=== PATIENT | male | born 1970 | race Caucasian/White ===

== ENCOUNTER 2019-09-25 17:10 | Inpatient (IN) | payer MEDICARE, OTHER ==
[2019-09-25] MEDS ORDERED: LORazepam 2 MG/ML INJ IV STA (17:26)
--- NOTE | 2019-09-25 18:02 | ED ---
General Adult HPI - General Source: EMS Mode of arrival: EMS <Lupis Rizvi - Last Filed: 09/25/19 21:11> <Tri Pinedo - Last Filed: 09/27/19 23:54> - General Stated complaint: Fever, poss pneumonia Time Seen by Provider: 09/25/19 17:21 - History of Present Illness Initial comments: Patient is a 49-year-old male, with history of significant mental disability and autism, presenting to the emergency Department via EMS as a transfer from [facility]. Patient is a resident of an adult foster shelter. He presented to the ER with a fever as high as 102. Patient was evaluated at their facility and was found to have bilateral pneumonia and they had concerns for COVID. Patient is nonverbal at baseline. History is being taken from legal guardian and medical records. There has been no history of a cough. He has been less active and a decreased appetite for the past few days. No further complaints at this time. Upon arrival to our facility, patient is afebrile, rest of vitals normal as well. (Lupis Rizvi) - Related Data Home Medications Medication Instructions Recorded Confirmed Benztropine Mesylate 1 mg PO BID@06,199909/25/19 09/26/19 Cetirizine HCl 10 mg PO HS@219909/25/19 09/26/19 Demeclocycline HCl 300 mg PO PC-TID 09/25/19 09/26/19 Divalproex [Depakote] 1,500 mg PO DAILY@59909/25/19 09/26/19 Docusate [Colace] 100 mg PO BID@599,199909/25/19 09/26/19 Gabapentin [Neurontin] 300 mg PO QID 09/25/19 09/26/19 LORazepam [Ativan] 0.5 mg PO BID@1600,219909/25/19 09/26/19 LORazepam [Ativan] 1 mg PO DAILY PRN 09/25/19 09/26/19 Levothyroxine Sodium [Synthroid] 25 mcg PO DAILY@0600 09/25/19 09/26/19 OXcarbazepine [Oxtellar Xr] 600 mg PO BID@0600,1800 09/25/19 09/26/19 QUEtiapine [SEROquel] 200 mg PO HS@2000 09/25/19 09/26/19 Sodium Chloride Tab 1 gm PO TID@0800,1200,1800 09/25/19 09/26/19 Vitamin B Complex/Folic Acid 0.4 mg PO DAILY@0600 09/25/19 09/26/19 [Vitamin B Complex Tablet] Vitamin E 100 unit PO TID@0600,1800,2200 09/25/19 09/26/19 Diastat 10mg 10 mg RECTAL ONCE PRN 09/26/19 09/26/19 Divalproex [Depakote] 1,000 mg PO DAILY@1800 09/26/19 09/26/19 Magnesium Hydroxide [Milk of 2,400 mg PO ONCE PRN 09/26/19 09/26/19 Magnesia] Selenium Sul 1% Shampoo 1 applic TOPICAL DIRECTED PRN 09/26/19 09/26/19 Allergies Allergy/AdvReac Type Severity Reaction Status Date / Time escitalopram [From Lexapro] Allergy Unknown Verified 09/26/19 08:42 fluoxetine [From Prozac] Allergy Unknown Verified 09/26/19 08:42 haloperidol [From Haldol] Allergy Unknown Verified 09/26/19 08:42 lacosamide [From Vimpat] Allergy Unknown Verified 09/26/19 08:42 methylphenidate Allergy Unknown Verified 09/26/19 08:42 [From Ritalin] Penicillins Allergy Unknown Verified 09/26/19 08:42 phenobarbital Allergy Unknown Verified 09/26/19 08:42 phenytoin [From Dilantin] Allergy Unknown Verified 09/26/19 08:42 sulfamethoxazole Allergy Unknown Verified 09/26/19 08:42 [From Bactrim] trimethoprim [From Bactrim] Allergy Unknown Verified 09/26/19 08:42 Review of Systems ROS Other: All systems not noted in ROS Statement are negative. <Lupis Rizvi - Last Filed: 09/25/19 21:11> ROS Other: All systems not noted in ROS Statement are negative. <Tri Pinedo - Last Filed: 09/27/19 23:54> ROS Statement: Those systems with pertinent positive or pertinent negative responses have been documented in the HPI. Past Medical History Additional Past Medical History / Comment(s): autism, pica, epilepsy Past Surgical History: Unable to Obtain Past Psychological History: Unable to Obtain Past Alcohol Use History: Unable to Obtain Past Drug Use History: Unable to Obtain <BelkysLupis Amanda - Last Filed: 09/25/19 21:11> General Exam <Lupis Rizvi Amanda - Last Filed: 09/25/19 21:11> - General Exam Comments Initial Comments: GENERAL: Well-appearing, and in no acute distress. HEAD: Atraumatic, normocephalic. EYES: Pupils equal round and reactive to light, extraocular movements intact, sclera anicteric, conjunctiva are normal. ENT: TMs normal, nares patent, oropharynx clear without exudates. Moist mucous membranes. NECK: Normal range of motion, supple without lymphadenopathy or JVD. LUNGS: Diffuse scattered wheezes. HEART: Regular rate and rhythm without murmurs, rubs or gallops. ABDOMEN: Soft, nontender, normoactive bowel sounds. No guarding, no rebound. No masses appreciated. : Deferred EXTREMITIES: Normal range of motion, no pitting or edema. No clubbing or cyanosis. NEUROLOGICAL: Alert, mentally impaired, nonverbal. Patient is moving all 4 extremities without difficulty. PSYCH: Caregiver states he is less active than normal. SKIN: Warm, Dry, normal turgor, no rashes or lesions noted. (Lupis Rizvi) Course Vital Signs 09/25/19 09/25/19 17:22 19:29 Temperature 97 F L 98.2 F Pulse Rate 69 66 Respiratory 22 22 Rate Blood Pressure 123/66 126/76 O2 Sat by Pulse 96 96 Oximetry Medical Decision Making <Yeimy Rizvininorma Patel - Last Filed: 09/25/19 21:11> - Lab Data Result diagrams: 09/27/19 07:32 09/26/19 12:14 <Tri Pinedo - Last Filed: 09/27/19 23:54> - Medical Decision Making Patient is a 49-year-old male with history of mental impairment, autism, presenting as a transfer from [facility] with concerns of COVID. He presented febrile. Workup was done at [facility] and included significant low lymphocyte count at 0.71, pro-calcitonin is 3.45. X-rays reveal bilateral infiltrates on chest x-ray. He was started on IV antibiotics and fluids as well as Ativan to keep patient calm. Patient lives in a custodial setting. He arrived in our ER in stable condition. He is afebrile at this time. Caregiver is with patient. Patient seems restless and is continuing trying to get out of his bed. Patient will be continued on fluids, patient was given Ativan for restlessness. Patient was given IV dose of Levaquin prior to arrival. Patient will be tested for Covid and admitted for bilateral pneumonia. Accepting physician is Dr. Lawrence. Case discussed with Dr. Pinedo. (Lupis Rizvi) I was available for consultation in the emergency department. The history and physical exam were done by the midlevel provider. I was consulted for this patients care. I reviewed the case with the midlevel provider and based on their presentation of the patient, I agree with the assessment, medical decision making and plan of care as documented. I spoke with Dr. Lawrence who accepted admission. Chart was dictated using [employer] dictation software. Attempts were made to correct any dictation errors however some typographical errors may persist. Patient was seen during a national state of emergency due to the Covid-19 pandemic. (Tri Pinedo) Disposition Is patient prescribed a controlled substance at d/c from ED?: No Decision Date: 09/25/19 Decision Time: 18:36 <Lupis Rizvi - Last Filed: 09/25/19 21:11> <Tri Pinedo - Last Filed: 09/27/19 23:54> Clinical Impression: Suspected COVID-19 virus infection, Bilateral pneumonia, Nonverbal Disposition: ADMITTED IP TO THIS HOSP Condition: Good
[2019-09-25] MEDS ORDERED: PNEUMONIA PROTOCOL UTILIZED 1 EACH MISC PO PRN (18:29)
[2019-09-25] MEDS: SODIUM CHLORIDE 0.9% 1,000 ML IV SCH (19:18)
[2019-09-25] MEDS ORDERED: LORazepam 1 MG TAB PO PRN (20:28)
[2019-09-25] MEDS ORDERED: DIVALPROEX 250 MG TABLET.DR PO SCH (21:00)
[2019-09-25] MEDS: CEFEPIME 1 GM in SODIUM CHLORIDE 0.9% 50 ML IVPB SCH (23:11)
[2019-09-25] MEDS: LORazepam 0.5 MG TAB PO SCH (23:12)
[2019-09-25] MEDS: DIVALPROEX 500 MG TABLET.DR PO SCH (23:12)
[2019-09-25] MEDS: DOCUSATE 100 MG CAP PO SCH (23:12)
[2019-09-25] MEDS: GABAPENTIN 300 MG CAP PO SCH (23:12)
[2019-09-25] MEDS: BENZTROPINE MESYLATE 1 MG TAB PO SCH (23:13)
[2019-09-25] MEDS: DEMECLOCYCLINE 150 MG TAB PO SCH (23:13)
[2019-09-25] MEDS: QUEtiapine 200 MG TAB PO SCH (23:13)
[2019-09-25] MEDS: SODIUM CHLORIDE TAB 1 GM TAB PO SCH (23:13)
[2019-09-25] MEDS: OXCARBAZEPINE 600 MG PO SCH (23:14)
[2019-09-26] MEDS: GABAPENTIN 300 MG CAP PO SCH ×4 (04:20→22:47)
[2019-09-26] MEDS: LEVOTHYROXINE 25 MCG TAB PO SCH (05:56)
[2019-09-26 07:18] LABS: Basophils % (A) 0 %; Eosinophils # (A) 0.1 k/uL (0-0.7); Eosinophils % (A) 1 %; HGB 11.3 gm/dL (13.0-17.5); Lymphocytes # (A) 1.4 k/uL (1.0-4.8); Lymphocytes % (A) 25 %; MCH 29.3 pg (25.0-35.0); MCHC 32.1 g/dL (31.0-37.0); MCV 91.3 fL (80.0-100.0); Mean Platelet Volume 7.8; Monocytes # (A) 0.5 k/uL (0-1.0); Monocytes % (A) 8 %; Neutrophils # (A) 3.6 k/uL (1.3-7.7); Neutrophils % (A) 63 %; Platelet Count 150 k/uL (150-450); RBC 3.84 m/uL (4.30-5.90); RDW 13.4 % (11.5-15.5); WBC 5.7 k/uL (3.8-10.6)
[2019-09-26] MEDS: DIVALPROEX 500 MG TABLET.DR PO SCH ×2 (07:39→16:47)
[2019-09-26] MEDS: LORazepam 0.5 MG TAB PO SCH ×2 (07:39→22:47)
[2019-09-26] MEDS: DOCUSATE 100 MG CAP PO SCH ×2 (07:39→22:46)
[2019-09-26] MEDS: DEMECLOCYCLINE 150 MG TAB PO SCH ×3 (07:40→22:47)
[2019-09-26] MEDS: BENZTROPINE MESYLATE 1 MG TAB PO SCH ×2 (07:40→22:47)
[2019-09-26] MEDS: SODIUM CHLORIDE TAB 1 GM TAB PO SCH ×3 (07:40→22:46)
[2019-09-26] MEDS: CEFEPIME 1 GM in SODIUM CHLORIDE 0.9% 50 ML IVPB SCH ×2 (07:56→23:13)
[2019-09-26] MEDS: SODIUM CHLORIDE 0.9% 1,000 ML IV SCH ×2 (07:57→22:47)
--- NOTE | 2019-09-26 07:58 | XR ---
EXAMINATION TYPE: XR chest 1V portable DATE OF EXAM: 09/26/2019 CLINICAL HISTORY: Difficulty breathing and pneumonia. TECHNIQUE: Single AP portable frontal view of the chest is obtained. COMPARISON: None FINDINGS: Low lung volumes with bilateral central increased opacities. No pleural effusion or pneumo thorax seen bilaterally. Cardiac silhouette size upper limits of normal. Underlying levoconvex scolio tic curvature centered mid thoracic spine. IMPRESSION: Low lung volumes with bilateral central areas of acute infiltrate and/or edema felt prese nt.
[2019-09-26] MEDS ORDERED: LEVOFLOXACIN 750MG-D5W PMX 750 MG in DEXTROSE/WATER 1 150ML.BAG IVPB SCH (09:00)
[2019-09-26] MEDS ORDERED: VITAMIN B COMPLEX PO SCH (09:00)
[2019-09-26] MEDS ORDERED: FOLIC ACID PO SCH (09:00)
[2019-09-26 12:45] LABS: Albumin 3.6 g/dL (3.5-5.0); C Reactive Protein 65.5 mg/L (<10.0); Potassium 4.3 mmol/L (3.5-5.1); Total Bilirubin 0.8 mg/dL (0.2-1.3); Total Protein 6.7 g/dL (6.3-8.2)
[2019-09-26] MEDS: OXCARBAZEPINE 600 MG PO SCH ×2 (12:55→22:59)
--- NOTE | 2019-09-26 17:05 | P.HPIM ---
History of Present Illness H&P Date: 09/26/19 Chief Complaint: Fever History of presenting complaint: This is a 49-year-old patient who is a resident at [facility] home. Patient presented to [facility] he was found to fever of 102. Claudette bilateral pneumonia. Patient to baseline is nonverbal. Patient has a legal guardian. According to the notes patient was less active and decreased appetite for last few days. Pat ient was febrile another facility. They did not have arrangements about a hospital has patient was transferred down here.: COVID-19 testing was sent out. Patient being treated for bacterial pneumonia. Patient has a sitter the bedside. Patient is moving his limbs but does not participate in any discussion. Patient apparently her baseline is independently ambulatory. Admitting review of systems cannot be done as patient is nonverbal Past medical history to include: Autism, pica, epilepsy Social history: Does not smoke or drink alcohol. Resident of [facility] Patient's legal guardian is Azar-patient's brother Family history: Patient cannot state Physical examination: VITAL SIGNS: 97, 69, 22, 123/66, 96% on room air GENERAL: BMI 20.3, laying in bed, had to shake portal venous phase, moving all 4 limbs.. EYES: Pupils equal. Conjunctiva normal. HEENT: External appearance of nose and ears normal, oral cavity grossly normal. NECK: JVD not raised; masses not palpable. HEART: First and second heart sounds are normal; no edema. LUNGS: Respiratory rate increased, decreased breath sounds. ABDOMEN: Soft, nontender, liver spleen not palpable, no masses palpable. PSYCH: Unable to assess, patient nonverball. NEUROLOGICAL: [Cranial nerves grossly intact; no facial asymmetry, moving all 4 limbs LYMPHATICS: No lymph nodes palpable in the axilla and neck INVESTIGATIONS, reviewed in the clinical context: White count 5.7 hemoglobin 11.3 platelets 150 d-dimer 1.4 potassium 4.3 crit 1.11 LDH 479 CRP 65.5 pro calcitonin 2.19 Chest x-ray film personally reviewed by me-bilateral infiltrates Assessment: -This is a patient with nonverbal at a [facility] presents with fever of 102 with bilateral infiltrates. Inflammation markers above. Suspicion for COVID-19 high. Results of which are pending. Dr. Restrepo from [place] has been consulted for the same. -Advanced autism -Patient to baseline is nonverbal -Normocytic anemia cause unknown -Hypothyroid Plan: Patient currently being treated for bacterial pneumonia with IV cefepime. Home medications be resumed. Prognosis DVT prophylaxis. IV fluids. Await input from Dr. Villanueva. From ID. Past Medical History Additional Past Medical History / Comment(s): autism, pica, epilepsy History of Any Multi-Drug Resistant Organisms: None Reported Past Surgical History: Unable to Obtain Past Anesthesia/Blood Transfusion Reactions: No Reported Reaction Past Psychological History: Unable to Obtain Past Alcohol Use History: Unable to Obtain Past Drug Use History: Unable to Obtain Medications and Allergies Home Medications Medication Instructions Recorded Confirmed Type Benztropine Mesylate 1 mg PO BID@599,199909/25/19 09/26/19 History Cetirizine HCl 10 mg PO HS@219909/25/19 09/26/19 History Demeclocycline HCl 300 mg PO PC-TID 09/25/19 09/26/19 History Divalproex [Depakote] 1,500 mg PO DAILY@59909/25/19 09/26/19 History Docusate [Colace] 100 mg PO BID@599,199909/25/19 09/26/19 History Gabapentin [Neurontin] 300 mg PO QID 09/25/19 09/26/19 History LORazepam [Ativan] 0.5 mg PO BID@1600,219909/25/19 09/26/19 History LORazepam [Ativan] 1 mg PO DAILY PRN 09/25/19 09/26/19 History Levothyroxine Sodium [Synthroid] 25 mcg PO DAILY@59909/25/19 09/26/19 History OXcarbazepine [Oxtellar Xr] 600 mg PO BID@0600,179909/25/19 09/26/19 History QUEtiapine [SEROquel] 200 mg PO HS@199909/25/19 09/26/19 History Sodium Chloride Tab 1 gm PO TID@0800,1200,1800 09/25/19 09/26/19 History Vitamin B Complex/Folic Acid 0.4 mg PO DAILY@00 09/25/19 09/26/19 History [Vitamin B Complex Tablet] Vitamin E 100 unit PO TID@0600,1800,219909/25/1920 History Diastat 10mg 10 mg RECTAL ONCE PRN 09/26/19 09/26/19 History Divalproex [Depakote] 1,000 mg PO DAILY@1800 09/26/19 09/26/19 History Magnesium Hydroxide [Milk of 2,400 mg PO ONCE PRN 09/26/19 09/26/19 History Magnesia] Selenium Sul 1% Shampoo 1 applic TOPICAL DIRECTED PRN 09/26/19 09/26/19 History Allergies Allergy/AdvReac Type Severity Reaction Status Date / Time escitalopram [From Lexapro] Allergy Unknown Verified 09/26/19 08:42 fluoxetine [From Prozac] Allergy Unknown Verified 09/26/19 08:42 haloperidol [From Haldol] Allergy Unknown Verified 09/26/19 08:42 lacosamide [From Vimpat] Allergy Unknown Verified 09/26/19 08:42 methylphenidate Allergy Unknown Verified 09/26/19 08:42 [From Ritalin] Penicillins Allergy Unknown Verified 09/26/19 08:42 phenobarbital Allergy Unknown Verified 09/26/19 08:42 phenytoin [From Dilantin] Allergy Unknown Verified 09/26/19 08:42 sulfamethoxazole Allergy Unknown Verified 09/26/19 08:42 [From Bactrim] trimethoprim [From Bactrim] Allergy Unknown Verified 09/26/19 08:42 Physical Exam Vitals: Vital Signs Temp Pulse Pulse Resp BP BP Pulse Ox 09/26/19 08:32 96 09/26/19 08:00 64 16 09/26/19 07:59 98.3 F 64 16 118/82 09/25/19 19:29 98.2 F 66 22 126/76 96 09/25/19 17:22 97 F L 69 22 123/66 96 Intake and Output 09/25/19 09/26/19 09/26/19 22:59 06:59 14:59 Other: Voiding Method Diaper Diaper Incontinent Incontinent # Voids 3 3 Weight 68.039 kg Results CBC & Chem 7: 09/26/19 06:31 09/26/19 12:14 Labs: Abnormal Lab Results - Last 24 Hours (Table) 09/26/19 Range/Units 06:31 RBC 3.84 L (4.30-5.90) m/uL Hgb 11.3 L (13.0-17.5) gm/dL Hct 35.0 L (39.0-53.0) % Thrombosis Risk Factor Assmnt - Choose All That Apply Any of the Below Risk Factors Present?: Yes Each Factor Represents 1 point: Age 41-60 years Other Risk Factors: No Other congenital or acquired thrombophilia - If yes, enter type in comment: No Thrombosis Risk Factor Assessment Total Risk Factor Score: 1 Thrombosis Risk Factor Assessment Level: Low Risk
[2019-09-26] MEDS: QUEtiapine 200 MG TAB PO SCH (22:46)
--- NOTE | 2019-09-26 23:44 | P.CONS ---
History of Present Illness - Reason for Consult Consult date: 09/26/19 Pneumonia Requesting physician: Randy Lawrence - Chief Complaint Fever x 1 day - History of Present Illness Patient is a 57-year-old male with a past medical history significant for her mental disability and autism a [facility] patient was sent to [facility] for evaluation of fever of 104 in height patient was evaluated by the ER physician that facility did have a chest x-ray with evidence of bilateral pneumonia concern for the COVID-19 the patient been transferred to [facility] for further management currently there is no clear history of any cough though the patient did have a low appetite has been less active than usual patient has been evaluated ER physician and subsequently has been admitted here patient has no fever since has been admitted to hospital patient did have a normal white count normal creatinine elevated CRP and procalcitonin of 2.19 chest x-ray shows a low lung volumes with bilateral central areas of acute in filtrate or edema patient has been started on cefepime infectious has been consulted for further management of chemotherapy did received 1 dose of Levaquin patient is nonverbal most information has been obtained from review the chart and talking nursing staff Review of Systems positive point has been mentioned in HPI complete review could not be obtained because of underlying mental status. Past Medical History Additional Past Medical History / Comment(s): autism, pica, epilepsy History of Any Multi-Drug Resistant Organisms: None Reported Past Surgical History: Unable to Obtain Past Anesthesia/Blood Transfusion Reactions: No Reported Reaction Past Psychological History: Unable to Obtain Past Alcohol Use History: Unable to Obtain Past Drug Use History: Unable to Obtain Medications and Allergies Home Medications Medication Instructions Recorded Confirmed Type Benztropine Mesylate 1 mg PO BID@599,199909/25/19 09/26/19 History Cetirizine HCl 10 mg PO HS@219909/25/19 09/26/19 History Demeclocycline HCl 300 mg PO PC-TID 09/25/19 09/26/19 History Divalproex [Depakote] 1,500 mg PO DAILY@59909/25/19 09/26/19 History Docusate [Colace] 100 mg PO BID@599,199909/25/19 09/26/19 History Gabapentin [Neurontin] 300 mg PO QID 09/25/19 09/26/19 History LORazepam [Ativan] 0.5 mg PO BID@1600,2200 09/25/19 09/26/19 History LORazepam [Ativan] 1 mg PO DAILY PRN 09/25/19 09/26/19 History Levothyroxine Sodium [Synthroid] 25 mcg PO DAILY@0600 09/25/19 09/26/19 History OXcarbazepine [Oxtellar Xr] 600 mg PO BID@0600,1800 09/25/19 09/26/19 History QUEtiapine [SEROquel] 200 mg PO HS@199909/25/19 09/26/19 History Sodium Chloride Tab 1 gm PO TID@0800,1200,1800 09/25/19 09/26/19 History Vitamin B Complex/Folic Acid 0.4 mg PO DAILY@0600 09/25/19 09/26/19 History [Vitamin B Complex Tablet] Vitamin E 100 unit PO TID@0600,1800,0 09/25/19 09/26/19 History Diastat 10mg 10 mg RECTAL ONCE PRN 09/26/19 09/26/19 History Divalproex [Depakote] 1,000 mg PO DAILY@1800 09/26/19 09/26/19 History Magnesium Hydroxide [Milk of 2,400 mg PO ONCE PRN 09/26/19 09/26/19 History Magnesia] Selenium Sul 1% Shampoo 1 applic TOPICAL DIRECTED PRN 09/26/19 09/26/19 History Allergies Allergy/AdvReac Type Severity Reaction Status Date / Time escitalopram [From Lexapro] Allergy Unknown Verified 09/26/19 08:42 fluoxetine [From Prozac] Allergy Unknown Verified 09/26/19 08:42 haloperidol [From Haldol] Allergy Unknown Verified 09/26/19 08:42 lacosamide [From Vimpat] Allergy Unknown Verified 09/26/19 08:42 methylphenidate Allergy Unknown Verified 09/26/19 08:42 [From Ritalin] Penicillins Allergy Unknown Verified 09/26/19 08:42 phenobarbital Allergy Unknown Verified 09/26/19 08:42 phenytoin [From Dilantin] Allergy Unknown Verified 09/26/19 08:42 sulfamethoxazole Allergy Unknown Verified 09/26/19 08:42 [From Bactrim] trimethoprim [From Bactrim] Allergy Unknown Verified 09/26/19 08:42 Physical Exam Vitals: Vital Signs Temp Pulse Resp BP Pulse Ox 09/26/19 21:30 97.6 F 69 18 142/77 88 L 09/26/19 16:00 66 16 09/26/19 14:34 98.2 F 66 16 134/88 92 L 09/26/19 08:32 96 09/26/19 08:00 64 16 09/26/19 07:59 98.3 F 64 16 118/82 Intake and Output 09/26/19 09/26/19 09/27/19 14:59 22:59 06:59 Other: Voiding Method Diaper Diaper Incontinent Incontinent # Voids 2 6 GENERAL DESCRIPTION: Middle-aged male lying in bed, no distress. No tachypnea or accessory muscle of respiration use. HEENT: Shows Pallor , no scleral icterus. Oral mucous membrane is dry. NECK: Trachea central, no thyromegaly. LUNGS: Unlabored breathing. Decreased breath the base. No wheeze or crackle. HEART: S1, S2, regular rate and rhythm. ABDOMEN: Soft, no tenderness , guarding or rigidity EXTREMITIES: No edema of feet. SKIN: No rash, no masses palpable. NEUROLOGICAL: The patient is awake, orientation could not be determined because of underlying mental condition Results CBC & Chem 7: 09/26/19 06:31 09/26/19 12:14 Labs: Abnormal Lab Results - Last 24 Hours (Table) 09/26/19 09/26/19 09/26/19 Range/Units 06:31 06:31 12:14 RBC 3.84 L (4.30-5.90) m/uL Hgb 11.3 L (13.0-17.5) gm/dL Hct 35.0 L (39.0-53.0) % D-Dimer 1.40 H (<0.60) mg/L FEU ALT (4-49) U/L C-Reactive Protein (<10.0) mg/L Procalcitonin 2.19 H (0.02-0.09) ng/mL 09/26/19 Range/Units 12:14 RBC (4.30-5.90) m/uL Hgb (13.0-17.5) gm/dL Hct (39.0-53.0) % D-Dimer (<0.60) mg/L FEU ALT 99 H (4-49) U/L C-Reactive Protein 65.5 H (<10.0) mg/L Procalcitonin (0.02-0.09) ng/mL Assessment and Plan Assessment: 1- Patient presented hospital with fever and this patient noticed to be slightly less active however no significant cough has been noticed with a chest x-ray and bilateral infiltrate concern for possible atypical pneumonia though clinically features are not very suggestive of COVID-19 in this patient who did have elev ated procalcitonin which is usually seen in bacterial pneumonia than the viral pneumonia however other sources of fever such as UTI need to be ruled out as well 2-penicillin allergy that would limit the number of antibiotics safe to use 3-patient was cervical contraindicating the use of concomitant Levaquin or Zithromax (1) Fever Current Visit: Yes Status: Acute Code(s): R50.9 - FEVER, UNSPECIFIED SNOMED Code(s): 693278369 (2) Bilateral pneumonia Current Visit: Yes Status: Acute Code(s): J18.9 - PNEUMONIA, UNSPECIFIED ORGANISM SNOMED Code(s): 070236464 Plan: 1-we will try to obtain a sputum for Gram stain and culture and check a urine cultures 2-cefepime 1 g every 12hr to continue we will add doxycycline 100 mg twice daily We will follow on clinical condition and cultures to further adjust medication if needed Thank you for this consultation we will follow the patient along with you Time with Patient: Greater than 30
[2019-09-27] MEDS: DIVALPROEX 500 MG TABLET.DR PO SCH ×2 (06:06→17:10)
[2019-09-27] MEDS: GABAPENTIN 300 MG CAP PO SCH ×4 (06:06→21:50)
[2019-09-27] MEDS: LEVOTHYROXINE 25 MCG TAB PO SCH (06:11)
[2019-09-27 08:08] LABS: Basophils % (A) 1 %; Eosinophils # (A) 0.1 k/uL (0-0.7); Eosinophils % (A) 2 %; HCT 39.2 % (39.0-53.0); HGB 13.1 gm/dL (13.0-17.5); Lymphocytes # (A) 1.5 k/uL (1.0-4.8); Lymphocytes % (A) 25 %; MCH 30.6 pg (25.0-35.0); MCHC 33.5 g/dL (31.0-37.0); MCV 91.2 fL (80.0-100.0); Mean Platelet Volume 8.1; Monocytes # (A) 0.6 k/uL (0-1.0); Monocytes % (A) 11 %; Neutrophils # (A) 3.5 k/uL (1.3-7.7); Neutrophils % (A) 59 %; Platelet Count 150 k/uL (150-450); RDW 13.6 % (11.5-15.5)
[2019-09-27 08:20] LABS: Appearance,Urine Clear (Clear); Bilirubin,Urine Negative (Negative); Blood,Urine Negative (Negative); Color,Urine Yellow; Glucose,Urine (UA) Negative (Negative); Ketones,Urine Trace (Negative); Leukocyte Esterase,Urine Negative (Negative); Nitrite,Urine Negative (Negative); Protein,Urine Negative (Negative); Specific Gravity,Urine 1.009 (1.001-1.035); Urobilinogen,Urine <2.0 mg/dL (<2.0)
[2019-09-27] MEDS: DEMECLOCYCLINE 150 MG TAB PO SCH ×3 (08:29→21:49)
[2019-09-27] MEDS: SODIUM CHLORIDE TAB 1 GM TAB PO SCH ×3 (08:29→22:03)
[2019-09-27] MEDS: LORazepam 0.5 MG TAB PO SCH ×2 (08:29→21:49)
[2019-09-27] MEDS: BENZTROPINE MESYLATE 1 MG TAB PO SCH ×2 (08:30→21:49)
[2019-09-27] MEDS: DOXYCYCLINE 100 MG CAP PO SCH ×2 (08:30→21:49)
[2019-09-27] MEDS: CEFEPIME 1 GM in SODIUM CHLORIDE 0.9% 50 ML IVPB SCH ×2 (08:31→21:49)
[2019-09-27] MEDS: DOCUSATE 100 MG CAP PO SCH ×2 (08:32→21:49)
[2019-09-27] MEDS: OXCARBAZEPINE 600 MG PO SCH ×2 (08:32→22:07)
[2019-09-27] MEDS: SODIUM CHLORIDE 0.9% 1,000 ML IV SCH (08:37)
--- NOTE | 2019-09-27 15:08 | PN ---
PROGRESS NOTE DATE OF SERVICE: 09/27/2019 REASON FOR FOLLOWUP: Pneumonia. INTERVAL HISTORY: The patient is currently afebrile. The patient is breathing comfortably on room air. He is hemodynamically stable wound, oral intake is poor but no chest pain or choking has been noticed by the nurse aide. No vomiting or any diarrhea reported. The patient was unable to provide any history. PHYSICAL EXAMINATION: Blood pressure 145/83 with a pulse of 62, temperature 98.2, she is 97% on room air. General description is a middle-aged male, lying in bed in no distress. RESPIRATORY SYSTEM: Unlabored breathing, clear to auscultation anteriorly. HEART: S1, S2. Regular rate and rhythm. ABDOMEN: Soft, no tenderness. LABS: Urine is negative. White count of 6.0. CRP is down to 54. DIAGNOSTIC IMPRESSION/PLAN: Patient admitted to hospital with pneumonia, possibly community-acquired. Overall improvement on the doxycycline. Continue to finish therapy with oral antibiotic on discharge. Monitor clinical course closely. MMODL / IJN: [id number] /
[2019-09-27] MEDS: QUEtiapine 200 MG TAB PO SCH (21:49)
--- NOTE | 2019-09-27 23:22 | P.PN ---
Progress Note - Text Progress Note Date: 09/27/19 Chief Complaint: Fever History of presenting complaint: This is a 49-year-old patient who is a resident at [facility] home. Patient presented to [facility] he was found to fever of 102. Claudette bilateral pneumonia. Patient to baseline is nonverbal. Patient has a legal guardian. According to the notes patient was less active and decreased appetite for last few days. Patient was febrile another facility. They did not have arrangements about a hospital has patient was transferred down here.: COVID-19 testing was sent out. Patient being treated for bacterial pneumonia. Patient has a sitter the bedside. Patient is moving his limbs but does not participate in any discussion. Patient apparently her baseline is independently ambulatory. Admitted with-pneumonia. COVID 19-not injected Today-sitter the bedside. Eat a little bit. Awake moving about. Admitting review of systems cannot be done as patient is nonverbal Active Medications Benztropine Mesylate (Cogentin) 1 mg PO BID [facility] Last Admin: 09/27/19 21:49 Dose: 1 mg Documented by: Demeclocycline HCl (Declomycin) 300 mg PO TID [facility] Last Admin: 09/27/19 21:49 Dose: 300 mg Documented by: Divalproex Sodium (Depakote) 1,000 mg PO DAILY@1800 [facility] Last Admin: 09/27/19 17:10 Dose: 1,000 mg Documented by: Divalproex Sodium (Depakote) 1,500 mg PO DAILY@0600 [facility] Last Admin: 09/27/19 06:06 Dose: 1,500 mg Documented by: Docusate Sodium (Colace) 100 mg PO Q12H [facility] Last Admin: 09/27/19 21:49 Dose: 100 mg Documented by: Doxycycline Monohydrate (Vibramycin) 100 mg PO BID [facility] Last Admin: 09/27/19 21:49 Dose: 100 mg Documented by: Gabapentin (Neurontin) 300 mg PO Q6H [facility] Last Admin: 09/27/19 21:50 Dose: 300 mg Documented by: Sodium Chloride (Saline 0.9%) 1,000 mls @ 75 mls/hr IV .[id number] [facility] Last Admin: 09/27/19 08:37 Dose: Not Given Documented by: Cefepime HCl 1 gm/ Sodium (Chloride) 50 mls @ 100 mls/hr IVPB Q12HR [facility] Last Admin: 09/27/19 21:49 Dose: 100 mls/hr Documented by: Levothyroxine Sodium (Synthroid) 25 mcg PO 0630 [facility] Last Admin: 09/27/19 06:11 Dose: 25 mcg Documented by: Lorazepam (Ativan) 0.5 mg PO BID [facility] Last Admin: 09/27/19 21:49 Dose: 0.5 mg Documented by: Lorazepam (Ativan) 1 mg PO DAILY PRN PRN Reason: Anxiety Miscellaneous Information (Pneumonia Protocol Utilized) 1 each PO ONCE PRN PRN Reason: Per Protocol Patient's Own ( Oxcarbazepine [ Oxtellar Xr] 600 Mg) 600 mg PO BID [facility] Last Admin: 09/27/19 22:07 Dose: Not Given Documented by: Quetiapine Fumarate (Seroquel) 200 mg PO HS [facility] Last Admin: 09/27/19 21:49 Dose: 200 mg Documented by: Sodium Chloride (Sodium Chloride Tab) 1 gm PO TID [facility] Last Admin: 09/27/19 22:03 Dose: 1 gm Documented by: Physical examination: VITAL SIGNS: 98.2, 60, 16, 145/83, 97% on room air GENERAL: BMI 20.3, laying in bed, had to shake portal venous phase, moving all 4 limbs.. EYES: Pupils equal. Conjunctiva normal. HEENT: External appearance of nose and ears normal, oral cavity grossly normal. NECK: JVD not raised; masses not palpable. HEART: First and second heart sounds are normal; no edema. LUNGS: Respiratory rate increased, decreased breath sounds. ABDOMEN: Soft, nontender, liver spleen not palpable, no masses palpable. PSYCH: Unable to assess, patient nonverball. NEUROLOGICAL: [Cranial nerves grossly intact; no facial asymmetry, moving all 4 limbs INVESTIGATIONS, reviewed in the clinical context: White count 6 hemoglobin 13.1 COVID-19 PCR-not detected Admission testing White count 5.7 hemoglobin 11.3 platelets 150 d-dimer 1.4 potassium 4.3 crit 1.11 LDH 479 CRP 65.5 pro calcitonin 2.19 Chest x-ray film personally reviewed by me-bilateral infiltrates Assessment: -Bilateral pneumonia, suspect gram-negative organism. -Advanced autism -Patient to baseline is nonverbal -Normocytic anemia cause unknown -Hypothyroid Plan: Continue with IV cefepime. Other medications to continue. Also IV fluids.
[2019-09-28] MEDS: DIVALPROEX 500 MG TABLET.DR PO SCH ×2 (05:26→18:14)
[2019-09-28] MEDS: GABAPENTIN 300 MG CAP PO SCH ×4 (05:26→22:10)
[2019-09-28] MEDS: LEVOTHYROXINE 25 MCG TAB PO SCH (05:29)
[2019-09-28] MEDS: SODIUM CHLORIDE 0.9% 1,000 ML IV SCH ×3 (07:15→22:12)
[2019-09-28] MEDS: OXCARBAZEPINE 600 MG PO SCH ×2 (10:28→22:11)
[2019-09-28] MEDS: CEFEPIME 1 GM in SODIUM CHLORIDE 0.9% 50 ML IVPB SCH ×2 (10:30→22:11)
[2019-09-28] MEDS: DEMECLOCYCLINE 150 MG TAB PO SCH ×3 (10:35→22:10)
[2019-09-28] MEDS: SODIUM CHLORIDE TAB 1 GM TAB PO SCH ×3 (10:35→22:10)
[2019-09-28] MEDS: DOXYCYCLINE 100 MG CAP PO SCH ×2 (10:35→22:10)
[2019-09-28] MEDS: BENZTROPINE MESYLATE 1 MG TAB PO SCH ×2 (10:37→22:11)
[2019-09-28] MEDS: LORazepam 0.5 MG TAB PO SCH ×2 (10:37→22:10)
[2019-09-28] MEDS: DOCUSATE 100 MG CAP PO SCH ×2 (10:37→22:10)
--- NOTE | 2019-09-28 12:43 | CDI ---
Documentation Clarification Form Date: 09/28/2019 12:22:44 PM From: Yaz Lui RN CCDS Admit Date: 09/25/2019 06:32:00 PM Patient Name: Gurpreet Quigley Visit Number: [id number] Discharge Date: ATTENTION: The Clinical Documentation Specialists (CDI) and [facility] Coding Staff appreciate your assistance in clarifying documentation. Please respond to the clarification below the line at the bottom and electronically sign. The CDI & [facility] Coding staff will review the response and follow-up if needed. Please note: Queries are made part of the Legal Health Record. If you have any questions, please contact the author of this message via ITS. Dr. Randy Lawrence The COVID-19 test obtained on 09/24 was reported as Negative on 09/25 Suspicion for COVID 19 high is documented in the H&P 09/25 COVID-19 PCR not detected is documented in Internal Medicine Progress note 09/26 49-year-old male presents to the ED as a transfer from [facility] for bilateral pneumonia and concerns of COVID. Medical History Autism and Epilepsy. Clinical Indicators: Symptoms: Fever 09/25 CXR: Low lung volumes with bilateral central areas of acute infiltrate and/or edema felt present. 09/25 Vital signs on admission: BP: 123/66; HR: 69; Temp: 97.0; RR: 22; SpO2 96% room air 09/25 Wbc 5.7; D-Dimer 1.40; ALT 99; CRP 65.5; Procalcitonin 2.19; Treatment 09/24 Cefepime Ivpb Q 12 Hrs; 09/25 Levaquin Ivpb Daily; 09/26 Doxycycline PO BID In order to capture the severity of condition, please clarify the COVID-19 status: COVID-19 ruled out False negative, treating for COVID-19 based on these clinical indicators: Other, please specify: (Last Form Revision: June 2019) [id number] out MTDD
--- NOTE | 2019-09-28 16:40 | PN ---
PROGRESS NOTE DATE OF SERVICE: 09/28/2019 REASON FOR FOLLOWUP: Pneumonia. INTERVAL HISTORY: The patient is currently afebrile. The patient is breathing more comfortably. the nurse aide note showed or any cough has been noticed. No vomiting or any diarrhea. The patient himself is unable to provide any history. PHYSICAL EXAMINATION: Blood pressure 144/96, pulse of 69, temperature 98.1. He is 95% on room air. General description is a middle-aged male lying in bed in no distress. RESPIRATORY SYSTEM: Unlabored breathing. Clear to auscultation anteriorly. HEART: S1, S2. Regular rate and rhythm. ABDOMEN: Soft. No tenderness. LABS: No new labs have been obtained today. Blood culture has been negative. DIAGNOSTIC IMPRESSION AND PLAN: Patient admitted to hospital with fever with concern for pneumonia, possibly community- acquired. Overall improvement on the cefepime and doxycycline. Plan to finish therapy with oral Ceftin. Continue supportive care. MMODL / IJN: [id number] /
--- NOTE | 2019-09-28 20:10 | P.PN ---
Progress Note - Text Progress Note Date: 09/28/19 Chief Complaint: Fever History of presenting complaint: This is a 49-year-old patient who is a resident at [facility] home. Patient presented to [facility] he was found to fever of 102. Claudette bilateral pneumonia. Patient to baseline is nonverbal. Patient has a legal guardian. According to the notes patient was less active and decreased appetite for last few days. Patient was febrile another facility. They did not have arrangements about a hospital has patient was transferred down here.: COVID-19 testing was sent out. Patient being treated for bacterial pneumonia. Patient has a sitter the bedside. Patient is moving his limbs but does not participate in any discussion. Patient apparently her baseline is independently ambulatory. Admitted with-pneumonia. COVID 19-not detected Today-awake, moving about in bed. Decreased oral intake. Sitter the bedside.. Admitting review of systems cannot be done as patient is nonverbal Active Medications Benztropine Mesylate (Cogentin) 1 mg PO BID [facility] Last Admin: 09/28/19 10:37 Dose: 1 mg Documented by: Demeclocycline HCl (Declomycin) 300 mg PO TID [facility] Last Admin: 09/28/19 16:10 Dose: 300 mg Documented by: Divalproex Sodium (Depakote) 1,000 mg PO DAILY@1800 [facility] Last Admin: 09/28/19 18:14 Dose: 1,000 mg Documented by: Divalproex Sodium (Depakote) 1,500 mg PO DAILY@0600 [facility] Last Admin: 09/28/19 05:26 Dose: 1,500 mg Documented by: Docusate Sodium (Colace) 100 mg PO Q12H [facility] Last Admin: 09/28/19 10:37 Dose: 100 mg Documented by: Doxycycline Monohydrate (Vibramycin) 100 mg PO BID [facility] Last Admin: 09/28/19 10:35 Dose: 100 mg Documented by: Gabapentin (Neurontin) 300 mg PO Q6H [facility] Last Admin: 09/28/19 16:10 Dose: 300 mg Documented by: Sodium Chloride (Saline 0.9%) 1,000 mls @ 75 mls/hr IV .[id number] [facility] Last Admin: 09/28/19 12:56 Dose: 75 mls/hr Documented by: Cefepime HCl 1 gm/ Sodium (Chloride) 50 mls @ 100 mls/hr IVPB Q12HR [facility] Last Admin: 09/28/19 10:30 Dose: 100 mls/hr Documented by: Levothyroxine Sodium (Synthroid) 25 mcg PO 30 [facility] Last Admin: 09/28/19 05:29 Dose: 25 mcg Documented by: Lorazepam (Ativan) 0.5 mg PO BID [facility] Last Admin: 09/28/19 10:37 Dose: 0.5 mg Documented by: Lorazepam (Ativan) 1 mg PO DAILY PRN PRN Reason: Anxiety Miscellaneous Information (Pneumonia Protocol Utilized) 1 each PO ONCE PRN PRN Reason: Per Protocol Patient's Own ( Oxcarbazepine [ Oxtellar Xr] 600 Mg) 600 mg PO BID [facility] Last Admin: 09/28/19 10:28 Dose: Not Given Documented by: Quetiapine Fumarate (Seroquel) 200 mg PO HS [facility] Last Admin: 09/27/19 21:49 Dose: 200 mg Documented by: Sodium Chloride (Sodium Chloride Tab) 1 gm PO TID [facility] Last Admin: 09/28/19 16:10 Dose: 1 gm Documented by: Physical examination: VITAL SIGNS: 98.1, 69, 16, 144/93, 95% on room air GENERAL:, laying in bed, moving about in bed EYES: Pupils equal. Conjunctiva normal. HEENT: External appearance of nose and ears normal, oral cavity grossly normal. NECK: JVD not raised; masses not palpable. HEART: First and second heart sounds are normal; no edema. LUNGS: Respiratory rate normal, decreased breath sounds. ABDOMEN: Soft, nontender, liver spleen not palpable, no masses palpable. PSYCH: Unable to assess, patient nonverbal. NEUROLOGICAL: [Cranial nerves grossly intact; no facial asymmetry, moving all 4 limbs INVESTIGATIONS, reviewed in the clinical context: Pro calcitonin 0.93 Admission testing White count 5.7 hemoglobin 11.3 platelets 150 d-dimer 1.4 potassium 4.3 crit 1.11 LDH 479 CRP 65.5 pro calcitonin 2.19 Chest x-ray film personally reviewed by me-bilateral infiltrates COVID-19 PCR-not detected Assessment: -Bilateral pneumonia, suspect gram-negative organism. -Advanced autism -Patient to baseline is nonverbal -Normocytic anemia cause unknown -Hypothyroid Plan: -Responding to IV cefepime. The patient not eating much. Did speak the nurse to see if anybody from the from the intermediate will come to feed the patient. Infectious disease control in the hospital is ordering another COVID 19 testing
[2019-09-28] MEDS: QUEtiapine 200 MG TAB PO SCH (22:11)
[2019-09-28 23:44] LABS: Glucose,Whole Blood 121 mg/dL (75-99)
[2019-09-29] MEDS: DIVALPROEX 500 MG TABLET.DR PO SCH ×2 (06:18→16:28)
[2019-09-29] MEDS: GABAPENTIN 300 MG CAP PO SCH ×4 (06:18→20:17)
[2019-09-29] MEDS: LEVOTHYROXINE 25 MCG TAB PO SCH (06:18)
[2019-09-29] MEDS ORDERED: ACETAMINOPHEN IV (For NPO) 1,000 MG in EMPTY BAG 1 BAG IVPB ONE (07:00)
[2019-09-29] MEDS: SODIUM CHLORIDE TAB 1 GM TAB PO SCH ×3 (07:32→20:17)
[2019-09-29] MEDS: DOXYCYCLINE 100 MG CAP PO SCH (07:33)
[2019-09-29] MEDS: DEMECLOCYCLINE 150 MG TAB PO SCH ×3 (07:33→20:17)
[2019-09-29] MEDS: DOCUSATE 100 MG CAP PO SCH ×2 (07:33→20:17)
[2019-09-29] MEDS: BENZTROPINE MESYLATE 1 MG TAB PO SCH ×2 (07:33→20:17)
[2019-09-29] MEDS: LORazepam 0.5 MG TAB PO SCH ×2 (07:33→20:17)
[2019-09-29] MEDS: OXCARBAZEPINE 600 MG PO SCH ×2 (07:38→20:16)
[2019-09-29] MEDS: CEFEPIME 1 GM in SODIUM CHLORIDE 0.9% 50 ML IVPB SCH (07:59)
--- NOTE | 2019-09-29 08:22 | XR ---
EXAMINATION TYPE: XR chest 1V DATE OF EXAM: 09/29/2019 COMPARISON: 09/26/2019 INDICATION: Follow-up pneumonia TECHNIQUE: Single frontal view of the chest is obtained. FINDINGS: The heart size is normal. The pulmonary vasculature is normal. There is a patchy infiltrate greatest at the right lung base. Correlate for atypical pneumonia. This is increasing from comparison. Left perihilar infiltrate has largely resolved. IMPRESSION: 1. Developing patchy infiltrate at the right base but also within the mid right lung. Correlate for a typical pneumonia.
[2019-09-29 08:54] LABS: HCT 35.3 % (39.0-53.0); HGB 12.3 gm/dL (13.0-17.5); MCH 31.4 pg (25.0-35.0); MCHC 34.9 g/dL (31.0-37.0); MCV 90.1 fL (80.0-100.0); Mean Platelet Volume 7.7; Platelet Count 215 k/uL (150-450); RBC 3.92 m/uL (4.30-5.90); RDW 14.1 % (11.5-15.5); WBC 6.9 k/uL (3.8-10.6)
[2019-09-29 09:22] LABS: Anisocytosis (M) Present; Band Neutrophils % 20 %; Lymphocytes # (M) 0.48 k/uL (1.0-4.8); Monocytes # (M) 0.69 k/uL (0-1.0); Neutrophils % (M) 64 %; Nucleated Red Blood Cells 0 /100 WBC (0-0); Poikilocytosis (M) Present; Total Cells Counted 200; Toxic Granulation Present
[2019-09-29] MEDS: LORazepam 2 MG/ML INJ IV PRN ×3 (11:43→23:32)
[2019-09-29] MEDS: SODIUM CHLORIDE 0.9% 1,000 ML IV SCH (11:45)
[2019-09-29] MEDS: MEROPENEM 1 GM in SODIUM CHLORIDE 0.9% 100 ML IVPB SCH (16:27)
--- NOTE | 2019-09-29 17:13 | EEG ---
ELECTROENCEPHALOGRAM REPORT DATE OF SERVICE: 09/29/2019. PREAMBLE: This is a 49-year-old male with a history of seizure disorder who came in with two breakthrough seizures. This EEG is performed to evaluate for any epileptiform activity. EEG FINDINGS: This is a 21-channel routine EEG recording in a patient utilizing 10-20 international system with referential and bipolar montages. The background consists of well- developed but poorly regulated, mixed frequencies of low-voltage fast frequency beta with some mixed theta and delta activity. Background does not seem to be reactive to eye opening or closing. Photic stimulation was not performed. Different stages of sleep were not seen. There are intermittent bursts of spike or polyspike and slow wave activity seen in bihemispheric region intermittently. They can last from 1/2 to a couple of seconds. No electrographic seizure was, however, recorded. IMPRESSION: This is an abnormal EEG due to: 1. Presence of spike or polyspike and slow waves seen intermittently in bihemispheric region during this study, lasting for 1/2 to 1 to 2 seconds. This is suggestive of cortical irritability and tendency for seizures. 2. Background slowing of a moderate degree. This is suggestive of generalized cerebral dysfunction, as can be seen with toxic metabolic encephalopathy or due to diffuse structural brain abnormality. MMODL / IJN: [id number] / [facility]
--- NOTE | 2019-09-29 17:56 | P.CNNES ---
History of Present Illness Consult date: 09/29/19 Requesting physician: Randy Lawrence Reason for Consult: Seizure History of Present Illness: Patient is a 49-year-old male with history of significant mental disability, autism present to the ER on 09/25/2019 as a transfer from [facility]. Patient is a resident of an adult foster residential. Patient at baseline is nonverbal, nonambulatory. He came to the ER with fever as high as 102. Patient was found to have bilateral pneumonia and were concerning for Ross virus. Patient is nonverbal at baseline. He was noted to be less active prior to arrival with decreased appetite for past few days. Patient while in the hospital had to seizure type spell, noted by the skilled nursing professional today. The aide, who witnessed the seizure was present. She states that patient had 2 episodes one hour apart, each consisting of grand mal seizure, lasting for about 30 seconds each. After the second seizure, patient was given Ativan 2 mg IV, and now patient is very somnolent. No further seizures reported. Patient's blood tests shows normal CBC, Chem-20 showed mildly elevated ALT 99 with normal AST 56. UA negative. Ross virus PCR negative. Chest x-ray showed low lung volumes with bilateral central areas of acute infiltrate and/or edema. Repeat chest x-ray showed developing patchy infiltrate in the right base, but also within the mid right lung. Patient at home is on Oxtellar XR 600 mg twice a day, Depakote 1500 mg in the morning, 1000 mg at night and gabapentin 300 mg 4 times a day and Seroquel 200 mg daily at bedtime. Review of Systems ROS unobtainable: due to mental status Past Medical History Additional Past Medical History / Comment(s): autism, pica, epilepsy History of Any Multi-Drug Resistant Organisms: None Reported Past Surgical History: Unable to Obtain Past Anesthesia/Blood Transfusion Reactions: No Reported Reaction Past Psychological History: Unable to Obtain Past Alcohol Use History: Unable to Obtain Past Drug Use History: Unable to Obtain Medications and Allergies Home Medications Medication Instructions Recorded Confirmed Type Benztropine Mesylate 1 mg PO BID@0600,2000 09/25/19 09/26/19 History Cetirizine HCl 10 mg PO HS@2200 09/25/19 09/26/19 History Demeclocycline HCl 300 mg PO PC-TID 09/25/19 09/26/19 History Divalproex [Depakote] 1,500 mg PO DAILY@59909/25/19 09/26/19 History Docusate [Colace] 100 mg PO BID@599,199909/25/19 09/26/19 History Gabapentin [Neurontin] 300 mg PO QID 09/25/19 09/26/19 History LORazepam [Ativan] 0.5 mg PO BID@1600,219909/25/19 09/26/19 History LORazepam [Ativan] 1 mg PO DAILY PRN 09/25/19 09/26/19 History Levothyroxine Sodium [Synthroid] 25 mcg PO DAILY@59909/25/19 09/26/19 History OXcarbazepine [Oxtellar Xr] 600 mg PO BID@0600,179909/25/19 09/26/19 History QUEtiapine [SEROquel] 200 mg PO HS@199909/25/19 09/26/19 History Sodium Chloride Tab 1 gm PO TID@0800,1200,1800 09/25/19 09/26/19 History Vitamin B Complex/Folic Acid 0.4 mg PO DAILY@59909/25/19 09/26/19 History [Vitamin B Complex Tablet] Vitamin E 100 unit PO TID@0600,1800,219909/25/19 09/26/19 History Diastat 10mg 10 mg RECTAL ONCE PRN 09/26/19 09/26/19 History Divalproex [Depakote] 1,000 mg PO DAILY@179909/26/19 09/26/19 History Magnesium Hydroxide [Milk of 2,400 mg PO ONCE PRN 09/26/19 09/26/19 History Magnesia] Selenium Sul 1% Shampoo 1 applic TOPICAL DIRECTED PRN 09/26/19 09/26/19 History Allergies Allergy/AdvReac Type Severity Reaction Status Date / Time escitalopram [From Lexapro] Allergy Unknown Verified 09/26/19 08:42 fluoxetine [From Prozac] Allergy Unknown Verified 09/26/19 08:42 haloperidol [From Haldol] Allergy Unknown Verified 09/26/19 08:42 lacosamide [From Vimpat] Allergy Unknown Verified 09/26/19 08:42 methylphenidate Allergy Unknown Verified 09/26/19 08:42 [From Ritalin] Penicillins Allergy Unknown Verified 09/26/19 08:42 phenobarbital Allergy Unknown Verified 09/26/19 08:42 phenytoin [From Dilantin] Allergy Unknown Verified 09/26/19 08:42 sulfamethoxazole Allergy Unknown Verified 09/26/19 08:42 [From Bactrim] trimethoprim [From Bactrim] Allergy Unknown Verified 09/26/19 08:42 Physical Examination - Vital Signs Vital Signs: Vital Signs Temp Pulse Resp BP Pulse Ox 09/29/19 14:38 97.8 F 68 16 122/77 94 L 09/29/19 08:40 98.9 F 09/29/19 08:37 98.9 F 09/29/19 06:23 104.7 F H 09/29/19 01:05 96.9 F L 72 134/80 97 09/28/19 19:45 98.5 F 65 18 153/85 92 L 09/28/19 15:00 97.7 F 76 18 129/89 93 L Intake and Output 09/28/19 09/29/19 09/29/19 22:59 06:59 14:59 Intake Total 700 Balance 700 Intake: IV 100 ACETAMINOPHEN IV (For NPO 50 ) 1,000 mg In Empty Bag 1 bag @ 400 mls/hr IVPB ONCE ONE Rx#:[id number] Cefepime 1 gm In Sodium 50 Chloride 0.9% 50 ml @ 100 mls/hr IVPB Q12HR [facility] Rx #:[id number] Intake, IV Titration 600 Amount Sodium Chloride 0.9% 1, 600 000 ml @ 75 mls/hr IV . [id number] [facility] Rx#:[id number] Other: # Voids 1 2 # Bowel Movements 1 1 On examination patient is a middle aged male, laying in the bed. Patient is somnolent, as he has received Ativan. Patient's pupils are round and reacting to light. Visual campbell, extraocular muscles could not be tested. Face appears symmetric. Patient's tone is equal in the arms. Patient is spastic in the lower limbs. Reflexes are 1+ and plantars are flat. No obvious seizure activity noted. Results - Laboratory Findings CBC and BMP: 09/29/19 07:23 09/26/19 12:14 Abnormal Lab Findings: Abnormal Labs 09/26/19 09/26/19 09/26/19 06:31 06:31 12:14 RBC 3.84 L Hgb 11.3 L Hct 35.0 L Lymphocytes # (Manual) D-Dimer 1.40 H POC Glucose (mg/dL) ALT C-Reactive Protein Procalcitonin 2.19 H Urine Ketones 09/26/19 09/27/19 09/27/19 12:14 07:32 07:57 RBC Hgb Hct Lymphocytes # (Manual) D-Dimer POC Glucose (mg/dL) ALT 99 H C-Reactive Protein 65.5 H 54.4 H Procalcitonin Urine Ketones Trace H 09/28/19 09/28/19 09/29/19 06:45 23:43 07:23 RBC 3.92 L Hgb 12.3 L Hct 35.3 L Lymphocytes # (Manual) 0.48 L D-Dimer POC Glucose (mg/dL) 121 H ALT C-Reactive Protein Procalcitonin 0.93 H Urine Ketones Assessment and Plan Assessment: * 49-year-old male with long-standing history of seizure disorder, came with pneumonia. Patient had 2 breakthrough seizures while in the hospital. Patient's EEG shows spike or polyspike and slow waves, somewhat in generalized distribution, suggestive of possible primary generalized seizure disorder. * Autism, intellectual disability, with baseline nonverbal, nonambulatory state. * Acute bilateral pneumonia Plan: * Continue Depakote at current dose. Patient is also on oxcarbazepine, which is mainly indicated for partial onset seizure disorder. * We will also check oxcarbazepine level. * Treatment of pneumonia as per IM and ID. * Neurology will follow.
[2019-09-29] MEDS: QUEtiapine 200 MG TAB PO SCH (20:17)
--- NOTE | 2019-09-29 20:42 | P.PN ---
Progress Note - Text Progress Note Date: 09/29/19 Chief Complaint: Fever History of presenting complaint: This is a 49-year-old patient who is a resident at [facility] home. Patient presented to [facility] he was found to fever of 102. Claudette bilateral pneumonia. Patient to baseline is nonverbal. Patient has a legal guardian. According to the notes patient was less active and decreased appetite for last few days. Patient was febrile another facility. They did not have arrangements about a hospital has patient was transferred down here.: COVID-19 testing was sent out. Patient being treated for bacterial pneumonia. Patient has a sitter the bedside. Patient is moving his limbs but does not participate in any discussion. Patient apparently her baseline is independently ambulatory. Admitted with-pneumonia. COVID 19-not detected Today-to spike a fever in the early hours. Oral intake still low. Has a sitter. Laying in bed. Awake later in the morning to have a seizure-like activity. Neurology was consulted.. Admitting review of systems cannot be done as patient is nonverbal Active Medications Benztropine Mesylate (Cogentin) 1 mg PO BID COUNT [facility]CLUD[facility] Last Admin: 09/29/19 20:17 Dose: 1 mg Documented by: Demeclocycline HCl (Declomycin) 300 mg PO TID COUNT [facility] Last Admin: 09/29/19 20:17 Dose: 300 mg Documented by: Divalproex Sodium (Depakote) 1,000 mg PO DAILY@1800 [facility] Last Admin: 09/29/19 16:28 Dose: 1,000 mg Documented by: Divalproex Sodium (Depakote) 1,500 mg PO DAILY@0600 [facility] Last Admin: 09/29/19 06:18 Dose: 1,500 mg Documented by: Docusate Sodium (Colace) 100 mg PO Q12H COUNT [facility]CLUD[facility] Last Admin: 09/29/19 20:17 Dose: 100 mg Documented by: Gabapentin (Neurontin) 300 mg PO Q6H COUNT [facility]CLUD[facility] Last Admin: 09/29/19 20:17 Dose: 300 mg Documented by: Sodium Chloride (Saline 0.9%) 1,000 mls @ 75 mls/hr IV .[id number] COUNT [facility]CLUDES [facility] Last Admin: 09/29/19 11:45 Dose: 75 mls/hr Documented by: Meropenem 1 gm/ Sodium (Chloride) 100 mls @ 200 mls/hr IVPB Q8HR COUNT [facility]; Protocol Last Admin: 09/29/19 16:27 Dose: 200 mls/hr Documented by: Levothyroxine Sodium (Synthroid) 25 mcg PO 0630 COUNT [facility]CLUDES [facility] Last Admin: 09/29/19 06:18 Dose: 25 mcg Documented by: Lorazepam (Ativan) 0.5 mg PO BID COUNT [facility]CLUD[facility] Last Admin: 09/29/19 20:17 Dose: 0.5 mg Documented by: Lorazepam (Ativan) 1 mg PO DAILY PRN PRN Reason: Anxiety Lorazepam (Ativan) 2 mg IV Q2H PRN PRN Reason: Seizures Last Admin: 09/29/19 19:00 Dose: 2 mg Documented by: Miscellaneous Information (Pneumonia Protocol Utilized) 1 each PO ONCE PRN PRN Reason: Per Protocol Patient's Own ( Oxcarbazepine [ Oxtellar Xr] 600 Mg) 600 mg PO BID COUNT [facility]CLUDES [facility] Last Admin: 09/29/19 20:16 Dose: Not Given Documented by: Quetiapine Fumarate (Seroquel) 200 mg PO HS COUNT [facility]CLUD[facility] Last Admin: 09/29/19 20:17 Dose: 200 mg Documented by: Sodium Chloride (Sodium Chloride Tab) 1 gm PO TID COUNT [facility]CLUD[facility] Last Admin: 09/29/19 20:17 Dose: 1 gm Documented by: Physical examination: VITAL SIGNS: 104.71-1 episode, 72, 134/80, 97% GENERAL:, laying in bed, moving about in bed EYES: Pupils equal. Conjunctiva normal. HEENT: External appearance of nose and ears normal, oral cavity grossly normal. NECK: JVD not raised; masses not palpable. HEART: First and second heart sounds are normal; no edema. LUNGS: Respiratory rate normal, decreased breath sounds. ABDOMEN: Soft, nontender, liver spleen not palpable, no masses palpable. PSYCH: Unable to assess, patient nonverbal. NEUROLOGICAL: [Cranial nerves grossly intact; no facial asymmetry, moving all 4 limbs INVESTIGATIONS, reviewed in the clinical context: White count 6.9 hemoglobin 12.3 pro calcitonin 2.05 ATG-findings strongly suggestive of seizure activity. Admission testing White count 5.7 hemoglobin 11.3 platelets 150 d-dimer 1.4 potassium 4.3 crit 1.11 LDH 479 CRP 65.5 pro calcitonin 2.19 Chest x-ray film personally reviewed by me-bilateral infiltrates COVID-19 PCR-not detected Pro calcitonin 0.93 Assessment: -Bilateral pneumonia, suspect gram-negative organism.-Worsening with spiking fever today. -Advanced autism -Patient to baseline is nonverbal -Normocytic anemia cause unknown -Hypothyroid -New onset of seizure activity. New diagnosis Plan: -Patient was assessed from IV cefepime to meropenem per Dr. Villanueva. Neurology was consulted. Continue with IV fluids.
--- NOTE | 2019-09-30 | PN ---
PROGRESS NOTE DATE OF SERVICE: 09/29/2019 REASON FOR FOLLOWUP: Aspiration pneumonia. INTERVAL HISTORY: The patient did spike a fever 104 this morning apparently patient also had seizure activity and seemed to have slight worsening of his respiratory status. No vomiting has been noticed for any diarrhea. The patient remains to be lethargic and is unable to provide any history. PHYSICAL EXAMINATION: Blood pressure 112/80 with a pulse of 74, temperature 99. He is 95% on room air. General description is a middle-aged male lying in bed in no distress. RESPIRATORY SYSTEM: Unlabored breathing, some coarse breath sounds at the bases bilaterally. HEART: S1, S2. Regular rate and rhythm. ABDOMEN: Soft, no tenderness. LABS: Hemoglobin is 12.3, white count of 6.9. Blood culture has been negative. Chest x-ray this morning shows developing patchy infiltrate right base and right mid lung. DIAGNOSTIC IMPRESSION AND PLAN: Patient with fever with right-sided pneumonia, likely aspiration etiology. Unfortunately, the patient did have a PENICILLIN allergy that limit the number of antibiotics. We will discontinue with cefepime and the doxycycline and start the patient on meropenem and monitor clinical course closely. Continue with supportive care. MMODL / IJN: [id number] /
[2019-09-30] MEDS: MEROPENEM 1 GM in SODIUM CHLORIDE 0.9% 100 ML IVPB SCH ×4 (01:42→23:51)
[2019-09-30] MEDS: LORazepam 2 MG/ML INJ IV PRN (02:21)
[2019-09-30] MEDS: LEVOTHYROXINE 25 MCG TAB PO SCH (05:54)
[2019-09-30] MEDS: DIVALPROEX 500 MG TABLET.DR PO SCH ×2 (05:54→15:53)
[2019-09-30] MEDS: GABAPENTIN 300 MG CAP PO SCH ×4 (05:55→22:00)
[2019-09-30] MEDS: SODIUM CHLORIDE 0.9% 1,000 ML IV SCH ×2 (05:55→15:54)
[2019-09-30] MEDS: SODIUM CHLORIDE TAB 1 GM TAB PO SCH ×3 (07:29→22:00)
[2019-09-30] MEDS: LORazepam 0.5 MG TAB PO SCH ×2 (07:30→22:00)
[2019-09-30] MEDS: OXCARBAZEPINE 600 MG PO SCH ×2 (07:30→22:01)
[2019-09-30] MEDS: BENZTROPINE MESYLATE 1 MG TAB PO SCH ×2 (07:30→22:01)
[2019-09-30] MEDS: DEMECLOCYCLINE 150 MG TAB PO SCH ×3 (07:30→22:01)
[2019-09-30] MEDS: DOCUSATE 100 MG CAP PO SCH ×2 (07:30→22:00)
[2019-09-30 15:07] VITALS: BMI 20.3
--- NOTE | 2019-09-30 16:41 | PN ---
PROGRESS NOTE DATE OF SERVICE: 09/30/2019 REASON FOR FOLLOWUP: Aspiration pneumonia. INTERVAL HISTORY: The patient is currently afebrile. Patient has been breathing comfortably, he is hemodynamically stable. No further seizure activity or vomiting has been reported by the nursing staff. The patient is unable to provide any history. PHYSICAL EXAMINATION: Blood pressure 132/83 with a pulse of 69, temperature 98.3, he is 100% on room air. General description is a middle-aged male, lying in bed in no distress. RESPIRATORY SYSTEM: Unlabored breathing, clear to auscultation anteriorly. HEART: S1, S2. Regular rate and rhythm. ABDOMEN: Soft, no tenderness. LABS: Hemoglobin is 12.1, white count of 6.9, hematocrit 2.05. DIAGNOSTIC IMPRESSION AND PLAN: Patient with fever and concern for possible aspiration pneumonia. History of seizure activity. The patient is currently covered with meropenem without allergy to continue and monitor clinical course closely. Continue supportive care. MMODL / IJN: [id number] /
--- NOTE | 2019-09-30 18:11 | P.PN ---
Progress Note - Text Progress Note Date: 09/30/19 Chief Complaint: Fever History of presenting complaint: This is a 49-year-old patient who is a resident at [facility] home. Patient presented to [facility] he was found to fever of 102. Claudette bilateral pneumonia. Patient to baseline is nonverbal. Patient has a legal guardian. According to the notes patient was less active and decreased appetite for last few days. Patient was febrile another facility. They did not have arrangements about a hospital has patient was transferred down here.: COVID-19 testing was sent out. Patient being treated for bacterial pneumonia. Patient has a sitter the bedside. Patient is moving his limbs but does not participate in any discussion. Patient apparently her baseline is independently ambulatory. Admitted with-pneumonia. COVID 19-not detected. Had an episode of seizure. Today-did tolerate some diet. Laying in bed. Has a sitter. Oral intake- variable Admitting review of systems cannot be done as patient is nonverbal Active Medications Benztropine Mesylate (Cogentin) 1 mg PO BID [facility] Last Admin: 09/30/19 07:30 Dose: 1 mg Documented by: Demeclocycline HCl (Declomycin) 300 mg PO TID [facility] Last Admin: 09/30/19 15:53 Dose: 300 mg Documented by: Divalproex Sodium (Depakote) 1,000 mg PO DAILY@1800 [facility] Last Admin: 09/30/19 15:53 Dose: 1,000 mg Documented by: Divalproex Sodium (Depakote) 1,500 mg PO DAILY@0600 [facility] Last Admin: 09/30/19 05:54 Dose: 1,500 mg Documented by: Docusate Sodium (Colace) 100 mg PO Q12H [facility] Last Admin: 09/30/19 07:30 Dose: 100 mg Documented by: Gabapentin (Neurontin) 300 mg PO Q6H [facility] Last Admin: 09/30/19 15:53 Dose: 300 mg Documented by: Sodium Chloride (Saline 0.9%) 1,000 mls @ 75 mls/hr IV .[id number] [facility] Last Admin: 09/30/19 15:54 Dose: 75 mls/hr Documented by: Meropenem 1 gm/ Sodium (Chloride) 100 mls @ 200 mls/hr IVPB Q8HR [facility]; Protocol Last Admin: 09/30/19 15:52 Dose: 200 mls/hr Documented by: Levothyroxine Sodium (Synthroid) 25 mcg PO 0630 [facility] Last Admin: 09/30/19 05:54 Dose: 25 mcg Documented by: Lorazepam (Ativan) 0.5 mg PO BID [facility] Last Admin: 09/30/19 07:30 Dose: 0.5 mg Documented by: Lorazepam (Ativan) 1 mg PO DAILY PRN PRN Reason: Anxiety Lorazepam (Ativan) 2 mg IV Q2H PRN PRN Reason: Seizures Last Admin: 09/30/19 02:21 Dose: 2 mg Documented by: Miscellaneous Information (Pneumonia Protocol Utilized) 1 each PO ONCE PRN PRN Reason: Per Protocol Patient's Own ( Oxcarbazepine [ Oxtellar Xr] 600 Mg) 600 mg PO BID [facility] Last Admin: 09/30/19 07:30 Dose: Not Given Documented by: Quetiapine Fumarate (Seroquel) 200 mg PO HS [facility] Last Admin: 09/29/19 20:17 Dose: 200 mg Documented by: Sodium Chloride (Sodium Chloride Tab) 1 gm PO TID [facility] Last Admin: 09/30/19 15:53 Dose: 1 gm Documented by: Physical examination: VITAL SIGNS: 98.3, 69, 18, 130-93, 100% on room air GENERAL:, laying in bed, awake EYES: Pupils equal. Conjunctiva normal. HEENT: External appearance of nose and ears normal, oral cavity grossly normal. NECK: JVD not raised; masses not palpable. HEART: First and second heart sounds are normal; no edema. LUNGS: Respiratory rate normal, decreased breath sounds. ABDOMEN: Soft, nontender, liver spleen not palpable, no masses palpable. PSYCH: Unable to assess, patient nonverbal. NEUROLOGICAL: moving all 4 limbs INVESTIGATIONS, reviewed in the clinical context: White count 6.9 hemoglobin 12.3 pro calcitonin 2.05 ATG-findings strongly suggestive of seizure activity. Admission testing White count 5.7 hemoglobin 11.3 platelets 150 d-dimer 1.4 potassium 4.3 crit 1.11 LDH 479 CRP 65.5 pro calcitonin 2.19 Chest x-ray film personally reviewed by az-bilateral infiltrates COVID-19 PCR-not detected Pro calcitonin 0.93 Assessment: -Bilateral pneumonia, suspect gram-negative organism.-Worsening with spiking fever today. -Advanced autism -Patient to baseline is nonverbal -Normocytic anemia cause unknown -Hypothyroid -New onset of seizure activity. Plan: Patient to be continued current medications including IV meropenem. IV hydration.
[2019-09-30] MEDS: QUEtiapine 200 MG TAB PO SCH (22:00)
--- NOTE | 2019-10-01 02:30 | P.PN ---
Subjective Progress Note Date: 10/01/19 Patient laying comfortably in the bed. Patient had 1 minor seizure recently. Objective - Vital Signs Vital signs: Vital Signs Temp 98.1 F 09/30/19 19:44 Pulse 99 09/30/19 19:44 Resp 14 09/30/19 19:44 BP 137/82 09/30/19 19:44 Pulse Ox 99 09/30/19 19:44 Intake & Output 09/30/19 09/30/19 10/01/19 06:59 18:59 06:59 Intake Total 800 Output Total 825 300 Balance -825 500 Weight 68.039 kg Intake: Intake, IV Titration 800 Amount Meropenem 1 gm In Sodium 200 Chloride 0.9% 100 ml @ 200 mls/hr IVPB Q8HR [facility] Rx#:[id number] Sodium Chloride 0.9% 1, 600 000 ml @ 75 mls/hr IV . [id number] [facility] Rx#:[id number] Output: Urine 825 300 Other: Voiding Method Diaper Incontinent # Voids 3 2 1 - Exam No change. - Labs CBC & Chem 7: 09/29/19 07:23 09/26/19 12:14 Labs: Microbiology - Last 24 Hours (Table) 09/26/19 12:14 Blood Culture - Preliminary Blood No Growth after 96 hours 09/29/19 07:23 Blood Culture - Preliminary Blood No Growth after 24 hours Assessment and Plan Assessment: * 49-year-old male with long-standing history of seizure disorder, came with pneumonia. Patient had 2 breakthrough seizures while in the hospital. Patient's EEG shows spike or polyspike and slow waves, somewhat in generalized distribution, suggestive of possible primary generalized seizure disorder. * Autism, intellectual disability, with baseline nonverbal, nonambulatory state. * Acute bilateral pneumonia Plan: * Continue Depakote at current dose. Depakote level is 40.4. * Patient is also on Oxtellar XR 600 mg twice a day at home. As this is a brand and not available in hospital formulary, patient was not receiving this medi cation in the hospital. This probably led to breakthrough seizures while in the hospital. I will resume oxcarbazepine 450 mg twice a day. * Treatment of pneumonia as per IM and ID. * Neurology service not available on the weekend.
[2019-10-01] MEDS: GABAPENTIN 300 MG CAP PO SCH ×4 (02:54→21:38)
[2019-10-01] MEDS: LEVOTHYROXINE 25 MCG TAB PO SCH (06:22)
[2019-10-01] MEDS: DIVALPROEX 500 MG TABLET.DR PO SCH ×2 (06:22→16:24)
[2019-10-01] MEDS: MEROPENEM 1 GM in SODIUM CHLORIDE 0.9% 100 ML IVPB SCH ×3 (08:14→23:29)
[2019-10-01] MEDS: LORazepam 0.5 MG TAB PO SCH ×2 (08:15→21:38)
[2019-10-01] MEDS: BENZTROPINE MESYLATE 1 MG TAB PO SCH ×2 (08:15→21:38)
[2019-10-01] MEDS: DOCUSATE 100 MG CAP PO SCH ×2 (08:15→21:38)
[2019-10-01] MEDS: OXcarbazepine 150 MG TAB PO SCH ×2 (08:15→21:39)
[2019-10-01] MEDS: DEMECLOCYCLINE 150 MG TAB PO SCH ×3 (08:15→21:38)
[2019-10-01] MEDS: SODIUM CHLORIDE 0.9% 1,000 ML IV SCH (08:20)
[2019-10-01] MEDS: SODIUM CHLORIDE TAB 1 GM TAB PO SCH ×3 (08:20→21:38)
[2019-10-01] MEDS: OXCARBAZEPINE 600 MG PO SCH ×2 (09:48→21:39)
--- NOTE | 2019-10-01 19:39 | P.PN ---
Progress Note - Text Progress Note Date: 10/01/19 Chief Complaint: Fever History of presenting complaint: This is a 49-year-old patient who is a resident at [facility] home. Patient presented to [facility] he was found to fever of 102. Claudette bilateral pneumonia. Patient to baseline is nonverbal. Patient has a legal guardian. According to the notes patient was less active and decreased appetite for last few days. Patient was febrile another facility. They did not have arrangements about a hospital has patient was transferred down here.: COVID-19 testing was sent out. Patient being treated for bacterial pneumonia. Patient has a sitter the bedside. Patient is moving his limbs but does not participate in any discussion. Patient apparently her baseline is independently ambulatory. Admitted with-pneumonia. COVID 19-not detected. Had an episode of seizure. Today-patient ate all his breakfast. Laying in bed. Comfortable. Admitting review of systems cannot be done as patient is nonverbal Active Medications Benztropine Mesylate (Cogentin) 1 mg PO BID [facility] Last Admin: 10/01/19 08:15 Dose: 1 mg Documented by: Demeclocycline HCl (Declomycin) 300 mg PO TID [facility] Last Admin: 10/01/19 16:23 Dose: 300 mg Documented by: Divalproex Sodium (Depakote) 1,000 mg PO DAILY@1800 [facility] Last Admin: 10/01/19 16:24 Dose: 1,000 mg Documented by: Divalproex Sodium (Depakote) 1,500 mg PO DAILY@0600 [facility] Last Admin: 10/01/19 06:22 Dose: 1,500 mg Documented by: Docusate Sodium (Colace) 100 mg PO Q12H [facility] Last Admin: 10/01/19 08:15 Dose: 100 mg Documented by: Gabapentin (Neurontin) 300 mg PO Q6H [facility] Last Admin: 10/01/19 16:23 Dose: 300 mg Documented by: Sodium Chloride (Saline 0.9%) 1,000 mls @ 75 mls/hr IV .[id number] [facility] Last Admin: 10/01/19 08:20 Dose: 75 mls/hr Documented by: Meropenem 1 gm/ Sodium (Chloride) 100 mls @ 200 mls/hr IVPB Q8HR [facility]; Protocol Last Admin: 10/01/19 16:24 Dose: 200 mls/hr Documented by: Levothyroxine Sodium (Synthroid) 25 mcg PO 0630 [facility] Last Admin: 10/01/19 06:22 Dose: 25 mcg Documented by: Lorazepam (Ativan) 0.5 mg PO BID [facility] Last Admin: 10/01/19 08:15 Dose: 0.5 mg Documented by: Lorazepam (Ativan) 1 mg PO DAILY PRN PRN Reason: Anxiety Lorazepam (Ativan) 2 mg IV Q2H PRN PRN Reason: Seizures Last Admin: 09/30/19 02:21 Dose: 2 mg Documented by: Miscellaneous Information (Pneumonia Protocol Utilized) 1 each PO ONCE PRN PRN Reason: Per Protocol Patient's Own ( Oxcarbazepine [ Oxtellar Xr] 600 Mg) 600 mg PO BID [facility] Last Admin: 10/01/19 09:48 Dose: Not Given Documented by: Oxcarbazepine (Trileptal) 450 mg PO BID [facility] Last Admin: 10/01/19 08:15 Dose: 450 mg Documented by: Quetiapine Fumarate (Seroquel) 200 mg PO HS [facility] Last Admin: 09/30/19 22:00 Dose: 200 mg Documented by: Sodium Chloride (Sodium Chloride Tab) 1 gm PO TID [facility] Last Admin: 10/01/19 16:23 Dose: 1 gm Documented by: Physical examination: VITAL SIGNS: Afebrile, 88, 18, 120/79, 96% room air GENERAL:, laying in bed, comfortable EYES: Pupils equal. Conjunctiva normal. HEENT: External appearance of nose and ears normal, oral cavity grossly normal. NECK: JVD not raised; masses not palpable. HEART: First and second heart sounds are normal; no edema. LUNGS: Respiratory rate normal, decreased breath sounds. ABDOMEN: Soft, nontender, liver spleen not palpable, no masses palpable. PSYCH: Unable to assess, patient nonverbal. NEUROLOGICAL: moving all 4 limbs INVESTIGATIONS, reviewed in the clinical context: White count 6.9 hemoglobin 12.3 pro calcitonin 2.05 ATG-findings strongly suggestive of seizure activity. Admission testing White count 5.7 hemoglobin 11.3 platelets 150 d-dimer 1.4 potassium 4.3 crit 1.11 LDH 479 CRP 65.5 pro calcitonin 2.19 Chest x-ray film personally reviewed by me-bilateral infiltrates COVID-19 PCR-not detected Pro calcitonin 0.93 Assessment: -Bilateral pneumonia, suspect gram-negative organism.-Clinically improving -Advanced autism -Patient to baseline is nonverbal -Normocytic anemia cause unknown -Hypothyroid -New onset of seizure activity. Plan: Continue current medications including IV meropenem. Patient eating much better.
[2019-10-01] MEDS: QUEtiapine 200 MG TAB PO SCH (21:38)
[2019-10-01] MEDS ORDERED: TAMSULOSIN 0.4 MG CAP.ER.24H PO SCH (23:15)
--- NOTE | 2019-10-02 00:27 | PN ---
PROGRESS NOTE DATE OF SERVICE: 10/01/2019 REASON FOR FOLLOWUP: Aspiration pneumonia. INTERVAL HISTORY: The patient is currently afebrile. No further seizure activity has been noted. No vomiting or diarrhea has been reported. The patient is unable to provide any history. PHYSICAL EXAMINATION: Blood pressure is 139/85 with a pulse of 60, temperature 98.3. He is 96% on room air. General description is a middle-aged male lying in bed in no distress. Respiratory system: Unlabored breathing. Decreased breath sounds. No wheeze. HEART: S1, S2. Regular rate and rhythm. ABDOMEN: Soft, no tenderness. LABS: Hemoglobin is 12.8, white count 6.9. DIAGNOSTIC IMPRESSION AND PLAN: Patient with seizure and aspiration pneumonia. Patient is currently on meropenem because of multiple antibiotic allergy. Condition improved. Finish therapy with oral Avelox. Repeat chest x-ray tomorrow. Continue supportive care. MMODL / IJN: [id number] /
[2019-10-02] MEDS: GABAPENTIN 300 MG CAP PO SCH ×3 (03:15→13:29)
[2019-10-02 03:31] VITALS: RESP 17
[2019-10-02] MEDS: LEVOTHYROXINE 25 MCG TAB PO SCH (05:40)
[2019-10-02] MEDS: DIVALPROEX 500 MG TABLET.DR PO SCH (05:40)
[2019-10-02 08:00] LABS: Basophils # (A) 0.1 k/uL (0-0.2); Basophils % (A) 1 %; Eosinophils # (A) 0.2 k/uL (0-0.7); Eosinophils % (A) 3 %; HCT 32.9 % (39.0-53.0); Lymphocytes # (A) 1.2 k/uL (1.0-4.8); Lymphocytes % (A) 16 %; MCH 30.7 pg (25.0-35.0); MCHC 33.6 g/dL (31.0-37.0); MCV 91.5 fL (80.0-100.0); Mean Platelet Volume 7.4; Monocytes # (A) 0.5 k/uL (0-1.0); Monocytes % (A) 6 %; Neutrophils # (A) 5.1 k/uL (1.3-7.7); Neutrophils % (A) 72 %; Platelet Count 277 k/uL (150-450); RDW 13.9 % (11.5-15.5); WBC 7.1 k/uL (3.8-10.6)
[2019-10-02 08:12] LABS: African American GFR (CKD) >90 (>60 ml/min/1.73 sqM); Anion Gap 7 mmol/L; Blood Urea Nitrogen 11 mg/dL (9-20); Carbon Dioxide 28 mmol/L (22-30); Chloride 106 mmol/L (98-107); Glucose 102 mg/dL (74-99); Non-African American GFR(CKD) >90 (>60 ml/min/1.73 sqM); Potassium 3.6 mmol/L (3.5-5.1); Sodium 141 mmol/L (137-145)
[2019-10-02] MEDS: OXCARBAZEPINE 600 MG PO SCH (08:25)
[2019-10-02] MEDS: OXcarbazepine 150 MG TAB PO SCH (08:30)
[2019-10-02] MEDS: MEROPENEM 1 GM in SODIUM CHLORIDE 0.9% 100 ML IVPB SCH (08:30)
[2019-10-02] MEDS: DOCUSATE 100 MG CAP PO SCH (08:30)
[2019-10-02] MEDS: DEMECLOCYCLINE 150 MG TAB PO SCH (08:31)
[2019-10-02] MEDS: LORazepam 0.5 MG TAB PO SCH (08:31)
[2019-10-02] MEDS: BENZTROPINE MESYLATE 1 MG TAB PO SCH (08:31)
[2019-10-02] MEDS: SODIUM CHLORIDE TAB 1 GM TAB PO SCH (08:31)
[2019-10-02 09:55] VITALS: BP 135/78; PULSE 75; TEMP 98.2
[2019-10-02] MEDS ORDERED: AMOXIC-POT CLAV 875-125MG 1 EACH TAB PO STA (13:05)
--- NOTE | 2019-10-02 21:39 | P.DS ---
Providers Date of admission: 09/25/19 18:32 Expected date of discharge: 10/02/19 Attending physician: Randy Lawrence Consults: 09/25/19 18:33 Consult Physician Urgent Consulting Provider: Tony Restrepo Consult Reason/Comments: pna, suspected covid Do you want consulting provider notified?: Yes 09/29/19 11:05 Consult Physician Routine Consulting Provider: Leyla Hirsch Consult Reason/Comments: seizure Do you want consulting provider notified?: Yes Primary care physician: [facility] Course: Chief Complaint: Fever History of presenting complaint: This is a 49-year-old patient who is a resident at [facility] home. Patient presented to [facility] he was found to fever of 102. Claudette bilateral pneumonia. Patient to baseline is nonverbal. Patient has a legal guardian. According to the notes patient was less active and decreased appetite for last few days. Patient was febrile another facility. They did not have arrangements about a hospital has patient was transferred down here.: COVID-19 testing was sent out. Patient being treated for bacterial pneumonia. Patient has a sitter the bedside. Patient is moving his limbs but does not participate in any discussion. Patient apparently her baseline is independently ambulatory. Admitted with-pneumonia. COVID 19-not detected. Had an episode of seizure. No further episodes. Today-. Reasonably well. Comfortable. No further fever. Patient is given Augmentin today. Observed. Had no adverse effect. Being discharged on the same. Consultation: Dr. Restrepo from [place] Physical examination: VITAL SIGNS: 98.2, 75, 17, 135/78, 98% on room air GENERAL:, laying in bed, comfortable EYES: Pupils equal. Conjunctiva normal. HEENT: External appearance of nose and ears normal, oral cavity grossly normal. NECK: JVD not raised; masses not palpable. HEART: First and second heart sounds are normal; no edema. LUNGS: Respiratory rate normal, decreased breath sounds. ABDOMEN: Soft, nontender, liver spleen not palpable, no masses palpable. PSYCH: Unable to assess, patient nonverbal. NEUROLOGICAL: moving all 4 limbs INVESTIGATIONS, reviewed in the clinical context: White count 7.1 EEG strongly suggestive of seizure activity. Admission testing White count 5.7 hemoglobin 11.3 platelets 150 d-dimer 1.4 potassium 4.3 crit 1.11 LDH 479 CRP 65.5 pro calcitonin 2.19 Chest x-ray film personally reviewed by me-bilateral infiltrates COVID-19 PCR-not detected Pro calcitonin 0.93 Assessment: -Bilateral pneumonia, suspect gram-negative organism.-POA -Advanced autism -Patient to baseline is nonverbal -Normocytic anemia cause unknown -Hypothyroid - seizure activity. Disposition: [facility] Patient Condition at Discharge: Stable Plan - Discharge Summary Discharge Rx Participant: No New Discharge Prescriptions: New Tamsulosin [Flomax] 0.4 mg PO HS #30 cap.er.24h Psyllium Husk 100% [Metamucil Packet] 6 gm PO DAILY #30 packet Amoxicillin/Potassium Clav [Augmentin 875-125 Tablet] 1 tab PO Q12HR 3 Days #6 tab Continue Demeclocycline HCl 300 mg PO PC-TID Benztropine Mesylate 1 mg PO BID@0600,2000 Levothyroxine Sodium [Synthroid] 25 mcg PO DAILY@0600 LORazepam [Ativan] 1 mg PO DAILY PRN PRN Reason: Seizures Gabapentin [Neurontin] 300 mg PO QID Vitamin E 100 unit PO TID@0600,1800,2200 Sodium Chloride Tab 1 gm PO TID@0800,1200,1800 QUEtiapine [SEROquel] 200 mg PO HS@2000 OXcarbazepine [Oxtellar Xr] 600 mg PO BID@0600,1800 LORazepam [Ativan] 0.5 mg PO BID@1600,2200 Vitamin B Complex/Folic Acid [Vitamin B Complex Tablet] 0.4 mg PO DAILY@0600 Divalproex [Depakote] 1,500 mg PO DAILY@0600 Divalproex [Depakote] 1,000 mg PO DAILY@1800 Selenium Sul 1% Shampoo 1 applic TOPICAL DIRECTED PRN PRN Reason: DANDRUFF Diastat 10mg 10 mg RECTAL ONCE PRN PRN Reason: seizures over 4min Magnesium Hydroxide [Milk of Magnesia] 2,400 mg PO ONCE PRN PRN Reason: Constipation Discontinued Docusate [Colace] 100 mg PO BID@0600,2000 Cetirizine HCl 10 mg PO HS@2200 Discharge Medication List Benztropine Mesylate 1 mg PO BID@0600,2000 09/25/19 [History] Demeclocycline HCl 300 mg PO PC-TID 09/25/19 [History] Divalproex [Depakote] 1,500 mg PO DAILY@0600 09/25/19 [History] Gabapentin [Neurontin] 300 mg PO QID 09/25/19 [History] LORazepam [Ativan] 0.5 mg PO BID@1600,2200 09/25/19 [History] LORazepam [Ativan] 1 mg PO DAILY PRN 09/25/19 [History] Levothyroxine Sodium [Synthroid] 25 mcg PO DAILY@0609/25/19 [History] OXcarbazepine [Oxtellar Xr] 600 mg PO BID@0600,1800 09/25/19 [History] QUEtiapine [SEROquel] 200 mg PO HS@199909/25/19 [History] Sodium Chloride Tab 1 gm PO TID@0800,1200,1800 09/25/19 [History] Vitamin B Complex/Folic Acid [Vitamin B Complex Tablet] 0.4 mg PO DAILY@0600 09/25/19 [History] Vitamin E 100 unit PO TID@0600,1800,219909/25/19 [History] Diastat 10mg 10 mg RECTAL ONCE PRN 09/26/19 [History] Divalproex [Depakote] 1,000 mg PO DAILY@1800 09/26/19 [History] Magnesium Hydroxide [Milk of Magnesia] 2,400 mg PO ONCE PRN 09/26/19 [History] Selenium Sul 1% Shampoo 1 applic TOPICAL DIRECTED PRN 09/26/19 [History] Amoxicillin/Potassium Clav [Augmentin 875-125 Tablet] 1 tab PO Q12HR 3 Days #6 tab 10/02/19 [Rx] Psyllium Husk 100% [Metamucil Packet] 6 gm PO DAILY #30 packet 10/02/19 [Rx] Tamsulosin [Flomax] 0.4 mg PO HS #30 cap.er.24h 10/02/19 [Rx] Follow up Appointment(s)/Referral(s): Grayson Diego MD [Primary Care Provider] - 1-2 days Patient Instructions/Handouts: Pneumonia (DC) Activity/Diet/Wound Care/Special Instructions: Please call [facility] home to transport on discharge: #[phone]. Discharge Disposition: TRANSFER TO SNF/ECF
== END 2019-10-02 16:30 | disposition home or self-care (01) | DRG 178 ==
LOC: EEVIPCON 17:10 → EC 17:10 → 4SSUR 18:32
PROVIDERS: ADMIT Hospitalist; ATTEND Hospitalist
DX: J15.6 Pneumonia due to other Gram-negative bacteria (principal); F84.0 Autistic disorder; G40.409 Other generalized epilepsy and epileptic syndromes, not intractable, without status epilepticus; J69.0 Pneumonitis due to inhalation of food and vomit; Z20.828 Contact with and (suspected) exposure to other viral communicable diseases; E03.9 Hypothyroidism, unspecified; D64.9 Anemia, unspecified; F41.9 Anxiety disorder, unspecified; F79 Unspecified intellectual disabilities; Z79.890 Hormone replacement therapy; Z79.899 Other long term (current) drug therapy; Z86.59 Personal history of other mental and behavioral disorders; Z88.0 Allergy status to penicillin; Z88.2 Allergy status to sulfonamides; Z88.8 Allergy status to other drugs, medicaments and biological substances
CPT/HCPCS: 71045; 80048; 80053; 80164; 80183; 81003; 83615; 84145; 85025; 85379; 86140; 87040; 95816; 96374; 99284

== ENCOUNTER 2019-10-12 14:49 | Inpatient (IN) | payer MEDICARE, OTHER ==
[2019-10-12] MEDS ORDERED: SODIUM CHLORIDE 0.9% 500 ML 500 ML IV STA (15:20)
[2019-10-12] MEDS ORDERED: SODIUM CHLORIDE 0.9% 1,000 ML IV STA (15:20)
--- NOTE | 2019-10-12 15:33 | ED ---
Weakness HPI - General Chief complaint: Weakness Stated complaint: Weakness Time Seen by Provider: 10/12/19 15:13 Source: RN notes reviewed, old records reviewed, Caregiver Mode of arrival: wheelchair Limitations: altered mental status, physical limitation - History of Present Illness Initial comments: This is a 49-year-old male with a history of autism who was recently inpatient for pneumonia from July 25 until October 01 who was brought in because of decreased oral intake weakness stumbling when he tries to walk falling frequently especially last several days also a gurgling sound from his lungs. Also decreased urinary and fecal output is only had several small bowel movements recently. No reports of fevers chills nausea vomiting sweats or other symptoms the patient is nonverbal and unable to give information the information is from a caregiver. When the patient was discharged was on oral antibiotics for 3 days. MD Complaint: generalized weakness - Related Data Home Medications Medication Instructions Recorded Confirmed Benztropine Mesylate 1 mg PO BID@599,199909/25/19 10/12/19 Demeclocycline HCl 300 mg PO PC-TID 09/25/19 10/12/19 Divalproex [Depakote] 1,500 mg PO DAILY@59909/25/19 10/12/19 Gabapentin [Neurontin] 300 mg PO QID 09/25/19 10/12/19 LORazepam [Ativan] 0.5 mg PO BID@1600,219909/25/19 10/12/19 LORazepam [Ativan] 1 mg PO DAILY PRN 09/25/19 10/12/19 Levothyroxine Sodium [Synthroid] 25 mcg PO DAILY@59909/25/19 10/12/19 OXcarbazepine [Oxtellar Xr] 600 mg PO BID@00,179909/25/19 10/12/19 QUEtiapine [SEROquel] 200 mg PO HS@199909/25/19 10/12/19 Sodium Chloride Tab 1 gm PO TID@0600,1200,179909/25/19 10/12/19 Vitamin B Complex/Folic Acid 0.4 mg PO DAILY@59909/25/19 10/12/19 [Vitamin B Complex Tablet] Vitamin E 100 unit PO TID@0600,1800,219909/25/19 10/12/19 Diastat 10mg 10 mg RECTAL ONCE PRN 09/26/19 10/12/19 Divalproex [Depakote] 1,000 mg PO DAILY@1800 09/26/19 10/12/19 Selenium Sul 1% Shampoo 1 applic TOPICAL DIRECTED PRN 09/26/19 10/12/19 Bisacodyl 10 mg RECTAL Q72H PRN 10/12/19 10/12/19 Cetirizine HCl [Zyrtec] 10 mg PO HS@2200 10/12/19 10/12/19 Docusate [Colace] 100 mg PO BID PRN 10/12/19 10/12/19 Selsun Blue Sha 1% 1 applic TOPICAL DIRECTED 10/12/19 10/12/19 Previous Rx's Medication Instructions Recorded Psyllium Husk 100% [Metamucil 6 gm PO DAILY #30 packet 10/02/19 Packet] Tamsulosin [Flomax] 0.4 mg PO HS #30 cap.er.24h 10/02/19 Allergies Allergy/AdvReac Type Severity Reaction Status Date / Time brivaracetam [From Briviact] Allergy Unknown Verified 10/12/19 16:02 escitalopram [From Lexapro] Allergy Unknown Verified 10/12/19 16:02 fluoxetine [From Prozac] Allergy Unknown Verified 10/12/19 16:02 haloperidol [From Haldol] Allergy Unknown Verified 10/12/19 16:02 lacosamide [From Vimpat] Allergy Unknown Verified 10/12/19 16:02 methylphenidate Allergy Unknown Verified 10/12/19 16:02 [From Ritalin] Penicillins Allergy Unknown Verified 10/12/19 16:02 phenobarbital Allergy Unknown Verified 10/12/19 16:02 phenytoin [From Dilantin] Allergy Unknown Verified 10/12/19 16:02 sulfamethoxazole Allergy Unknown Verified 10/12/19 16:02 [From Bactrim] trimethoprim [From Bactrim] Allergy Unknown Verified 10/12/19 16:02 Review of Systems ROS Statement: Those systems with pertinent positive or pertinent negative responses have been documented in the HPI. ROS Other: All systems not noted in ROS Statement are negative. Past Medical History Additional Past Medical History / Comment(s): autism, pica, epilepsy History of Any Multi-Drug Resistant Organisms: None Reported Past Surgical History: Unable to Obtain Past Anesthesia/Blood Transfusion Reactions: No Reported Reaction Past Psychological History: Unable to Obtain Past Alcohol Use History: Unable to Obtain Past Drug Use History: Unable to Obtain General Exam - General Exam Comments Initial Comments: This is a well-developed asthenic appearing male who is awake alert but nonverbal Limitations: altered mental status, physical limitation General appearance: alert, in no apparent distress Head exam: Present: atraumatic, normocephalic, normal inspection Eye exam: Present: normal appearance, PERRL, EOMI. Absent: scleral icterus, conjunctival injection, periorbital swelling ENT exam: Present: normal exam, mucous membranes moist Neck exam: Present: normal inspection. Absent: tenderness, meningismus, lymphadenopathy Respiratory exam: Present: decreased breath sounds. Absent: respiratory distress, wheezes, rales, rhonchi, stridor Cardiovascular Exam: Present: regular rate, normal rhythm, normal heart sounds. Absent: systolic murmur, diastolic murmur, rubs, gallop, clicks GI/Abdominal exam: Present: soft, normal bowel sounds. Absent: distended, t enderness, guarding, rebound, rigid Extremities exam: Present: normal inspection, full ROM, normal capillary refill. Absent: tenderness, pedal edema, joint swelling, calf tenderness Back exam: Present: normal inspection Neurological exam: Present: alert, CN II-XII intact Psychiatric exam: Present: normal affect, normal mood Skin exam: Present: warm, dry, intact, normal color. Absent: rash Course Vital Signs 10/12/19 14:59 Temperature 97.5 F L Pulse Rate 65 Respiratory 18 Rate Blood Pressure 137/93 O2 Sat by Pulse 94 L Oximetry EKG Findings - EKG Results: EKG: interpreted by ERMD, sinus rhythm (Sinus rhythm a 68. Interval 198 QRS dur ation 110 daily since QTC 420/458 daily) bundle-branch block) Medical Decision Making - Medical Decision Making I did discuss the findings with the caregiver as well as with Dr. Veliz and later with Tsering who is covering for Dr. Veliz. Patient be admitted for IV hydration and evaluation of constipation and pneumonia - Lab Data Result diagrams: 10/12/19 15:32 10/12/19 15:32 Lab Results 10/12/19 10/12/19 10/12/19 Range/Units 15:32 15:32 15:32 WBC 3.8 (3.8-10.6) k/uL RBC 4.27 L (4.30-5.90) m/uL Hgb 13.2 (13.0-17.5) gm/dL Hct 38.7 L (39.0-53.0) % MCV 90.7 (80.0-100.0) fL MCH 31.0 (25.0-35.0) pg MCHC 34.1 (31.0-37.0) g/dL RDW 14.3 (11.5-15.5) % Plt Count 219 (150-450) k/uL Neutrophils % 56 % Lymphocytes % 35 % Monocytes % 6 % Eosinophils % 2 % Basophils % 1 % Neutrophils # 2.1 (1.3-7.7) k/uL Lymphocytes # 1.3 (1.0-4.8) k/uL Monocytes # 0.2 (0-1.0) k/uL Eosinophils # 0.1 (0-0.7) k/uL Basophils # 0.0 (0-0.2) k/uL PT 10.8 (9.0-12.0) sec INR 1.0 (<1.2) APTT 23.4 (22.0-30.0) sec Sodium 140 (137-145) mmol/L Potassium 4.8 (3.5-5.1) mmol/L Chloride 104 (98-107) mmol/L Carbon Dioxide 29 (22-30) mmol/L Anion Gap 7 mmol/L BUN 11 (9-20) mg/dL Creatinine 0.97 (0.66-1.25) mg/dL Est GFR (CKD-EPI)AfAm >90 (>60 ml/min/1.73 sqM) Est GFR (CKD-EPI)NonAf >90 (>60 ml/min/1.73 sqM) Glucose 126 H (74-99) mg/dL Plasma Lactic Acid Raza (0.7-2.0) mmol/L Calcium 9.2 (8.4-10.2) mg/dL Magnesium 2.0 (1.6-2.3) mg/dL Total Bilirubin 0.5 (0.2-1.3) mg/dL AST 49 (17-59) U/L ALT 44 (4-49) U/L Alkaline Phosphatase 96 (38-126) U/L Creatine Kinase 90 (55-170) U/L Troponin I (0.000-0.034) ng/mL NT-Pro-B Natriuret Pep pg/mL Total Protein 6.7 (6.3-8.2) g/dL Albumin 3.8 (3.5-5.0) g/dL 10/12/19 10/12/19 10/12/19 Range/Units 15:32 16:00 16:00 WBC (3.8-10.6) k/uL RBC (4.30-5.90) m/uL Hgb (13.0-17.5) gm/dL Hct (39.0-53.0) % MCV (80.0-100.0) fL MCH (25.0-35.0) pg MCHC (31.0-37.0) g/dL RDW (11.5-15.5) % Plt Count (150-450) k/uL Neutrophils % % Lymphocytes % % Monocytes % % Eosinophils % % Basophils % % Neutrophils # (1.3-7.7) k/uL Lymphocytes # (1.0-4.8) k/uL Monocytes # (0-1.0) k/uL Eosinophils # (0-0.7) k/uL Basophils # (0-0.2) k/uL PT (9.0-12.0) sec INR (<1.2) APTT (22.0-30.0) sec Sodium (137-145) mmol/L Potassium (3.5-5.1) mmol/L Chloride (98-107) mmol/L Carbon Dioxide (22-30) mmol/L Anion Gap mmol/L BUN (9-20) mg/dL Creatinine (0.66-1.25) mg/dL Est GFR (CKD-EPI)AfAm (>60 ml/min/1.73 sqM) Est GFR (CKD-EPI)NonAf (>60 ml/min/1.73 sqM) Glucose (74-99) mg/dL Plasma Lactic Acid Raza 1.4 (0.7-2.0) mmol/L Calcium (8.4-10.2) mg/dL Magnesium (1.6-2.3) mg/dL Total Bilirubin (0.2-1.3) mg/dL AST (17-59) U/L ALT (4-49) U/L Alkaline Phosphatase (38-126) U/L Creatine Kinase (55-170) U/L Troponin I <0.012 (0.000-0.034) ng/mL NT-Pro-B Natriuret Pep 317 pg/mL Total Protein (6.3-8.2) g/dL Albumin (3.5-5.0) g/dL - Radiology Data Radiology results: report reviewed (I did review the imaging evidence of her retrocardiac infiltrate this is right lower lobe infiltrates appears be clearing also marked amount of constipation with fecal stasis noted), image reviewed Disposition Clinical Impression: Failure to thrive in adult, Fecal impaction of colon, Pneumonia, Dehydration Disposition: ADMITTED IP TO THIS HOSP Condition: Fair Referrals: Grayson Diego MD [Primary Care Provider] - 1-2 days
[2019-10-12 15:47] LABS: Basophils % (A) 1 %; Eosinophils # (A) 0.1 k/uL (0-0.7); Eosinophils % (A) 2 %; HCT 38.7 % (39.0-53.0); HGB 13.2 gm/dL (13.0-17.5); Lymphocytes # (A) 1.3 k/uL (1.0-4.8); Lymphocytes % (A) 35 %; MCHC 34.1 g/dL (31.0-37.0); MCV 90.7 fL (80.0-100.0); Mean Platelet Volume 7.6; Monocytes # (A) 0.2 k/uL (0-1.0); Monocytes % (A) 6 %; Neutrophils # (A) 2.1 k/uL (1.3-7.7); Neutrophils % (A) 56 %; Platelet Count 219 k/uL (150-450); RBC 4.27 m/uL (4.30-5.90); RDW 14.3 % (11.5-15.5); WBC 3.8 k/uL (3.8-10.6)
[2019-10-12 15:57] LABS: ALT 44 U/L (4-49); AST 49 U/L (17-59); African American GFR (CKD) >90 (>60 ml/min/1.73 sqM); Albumin 3.8 g/dL (3.5-5.0); Alkaline Phosphatase 96 U/L (38-126); Anion Gap 7 mmol/L; Blood Urea Nitrogen 11 mg/dL (9-20); Calcium 9.2 mg/dL (8.4-10.2); Carbon Dioxide 29 mmol/L (22-30); Chloride 104 mmol/L (98-107); Creatine Kinase 90 U/L (55-170); Glucose 126 mg/dL (74-99); Non-African American GFR(CKD) >90 (>60 ml/min/1.73 sqM); Potassium 4.8 mmol/L (3.5-5.1); Sodium 140 mmol/L (137-145); Total Bilirubin 0.5 mg/dL (0.2-1.3); Total Protein 6.7 g/dL (6.3-8.2)
[2019-10-12 16:03] LABS: Partial Thromboplastin Time 23.4 sec (22.0-30.0); Prothrombin Time 10.8 sec (9.0-12.0)
--- NOTE | 2019-10-12 17:20 | XR ---
EXAMINATION TYPE: XR chest 2V DATE OF EXAM: 10/12/2019 COMPARISON: Chest x-ray September 29, 2019. HISTORY: Weakness and lethargy. TECHNIQUE: Frontal and lateral views of the chest are obtained. FINDINGS: There is some improved aeration lateral right midlung. Persistent but improving right basi lar opacity. Slightly diminished inspiration on current study. Suspect some retrocardiac opacity. No pleural effusion or pneumothorax seen bilaterally. The cardiac silhouette size is remains slightly en larged. The osseous structures are intact. IMPRESSION: Improving right sided acute infiltrates. Suspect retrocardiac acute infiltrate and/or at electasis. Background low lung volumes and cardiomegaly redemonstrated.
--- NOTE | 2019-10-12 17:21 | XR ---
EXAMINATION TYPE: XR KUB DATE OF EXAM: 10/12/2019 4:56 PM CLINICAL HISTORY: Constipation. TECHNIQUE: Single supine KUB image of the abdomen is obtained. COMPARISON: None. FINDINGS: Gas seen in nondistended stomach only partially imaged. Some paucity of small bowel gas. Ga s and fecal material seen in nondistended colon. Moderate fecal material somewhat prominent in the le ft colon and rectum along with near level of hepatic flexure. Prominent spur left anterior superior L 4 level. Right-sided pelvic phleboliths. Lung bases not included. IMPRESSION: Overall nonspecific but favor nonobstructive bowel gas pattern. Fairly moderate diffuse colonic fecal stasis noted.
[2019-10-12] MEDS ORDERED: PNEUMONIA PROTOCOL UTILIZED 1 EACH MISC PO PRN (17:45)
[2019-10-12] MEDS ORDERED: LORazepam 1 MG TAB PO PRN (17:47)
[2019-10-12] MEDS ORDERED: BISACODYL 10 MG SUPP RECTAL PRN (17:47)
[2019-10-12] MEDS ORDERED: DOCUSATE 100 MG CAP PO PRN (17:47)
[2019-10-12 18:14] LABS: Appearance,Urine Clear (Clear); Bilirubin,Urine Negative (Negative); Blood,Urine Negative (Negative); Color,Urine Yellow; Glucose,Urine (UA) Negative (Negative); Ketones,Urine Negative (Negative); Leukocyte Esterase,Urine Negative (Negative); Nitrite,Urine Negative (Negative); PH, Urine 7.5 (5.0-8.0); Protein,Urine Negative (Negative); Specific Gravity,Urine 1.011 (1.001-1.035); Urobilinogen,Urine <2.0 mg/dL (<2.0)
[2019-10-12] MEDS: GABAPENTIN 300 MG CAP PO SCH ×2 (18:42→22:04)
[2019-10-12] MEDS: DIVALPROEX 500 MG TABLET.DR PO SCH (18:42)
[2019-10-12] MEDS: SODIUM CHLORIDE 0.9% 1,000 ML IV SCH (18:43)
[2019-10-12] MEDS: DEMECLOCYCLINE 150 MG TAB PO SCH (20:40)
[2019-10-12] MEDS: QUEtiapine 200 MG TAB PO SCH (20:40)
[2019-10-12] MEDS: BENZTROPINE MESYLATE 1 MG TAB PO SCH (20:40)
[2019-10-12] MEDS: OXCARBAZEPINE 600 MG PO SCH (20:41)
[2019-10-12] MEDS: LORazepam 0.5 MG TAB PO SCH (22:04)
[2019-10-12] MEDS: LORATADINE 10 MG TAB PO SCH (22:04)
--- NOTE | 2019-10-12 23:01 | P.HPIM ---
History of Present Illness H&P Date: 10/12/19 Chief Complaint: Decreased responsiveness Patient is a 49-year-old male with a known history of developmentally challenged, autism and history of epilepsy who was recently discharged from the hospital on 10/02/2019, was treated for bacterial pneumonia, completed antibiotic course with Augmentin was brought to the hospital from [facility] home due to patient being more sleepy and falling and imbalance. Patient does have a legal guardian and called her PCP who recommended to go to ER. Patient has been having decreased oral intake and is more weak for the past few days. Patient is also having gurgling sounds on the lungs. Patient was also having decreased urinary output and also constipation. Patient did have a small bowel movement this morning otherwise. No complaints of vomiting. No fever no chills. Patient is nonverbal at baseline unable to provide any history. Most of the history was taken from the medical records and also caregiver/guardian at bedside. Vitals on admission blood pressure 137/93, pulse is 65 respiration 18 T-max 97.5 and pulse ox was 94% on room air Chest x-ray showed improving right-sided acute infiltrates. Suspect a retrocardiac acute infiltrate and atelectasis. Background lower lung volumes and cardiomegaly redemonstrated. KUB x-ray showed overall nonspecific but favored nonobstructive bowel gas pattern. Fairly moderate diffuse colonic fecal stasis noted. Laboratory data showed WBC 3.8, hemoglobin 13.2, platelets 219 Sodium 140 potassium 4.8 chloride 104, bicarb is 29, BUN 11 and creatinine 0.97 Liver enzymes are not elevated Magnesium 2.0 Lactic acid 1.4 Troponin x1- BNP 317 UA negative for infection Review of Systems Review of systems could not be obtained from the patient. Patient is nonverbal. Past Medical History Additional Past Medical History / Comment(s): autism, pica, epilepsy History of Any Multi-Drug Resistant Organisms: None Reported Past Surgical History: No Surgical Hx Reported Past Anesthesia/Blood Transfusion Reactions: No Reported Reaction Past Psychological History: Unable to Obtain Additional Psychological History / Comment(s): OCD Smoking Status: Never smoker Past Alcohol Use History: Unable to Obtain Past Drug Use History: Unable to Obtain Medications and Allergies Home Medications Medication Instructions Recorded Confirmed Type Benztropine Mesylate 1 mg PO BID@0600,199909/25/19 10/12/19 History Demeclocycline HCl 300 mg PO PC-TID 09/25/19 10/12/19 History Divalproex [Depakote] 1,500 mg PO DAILY@0600 09/25/19 10/12/19 History Gabapentin [Neurontin] 300 mg PO QID 09/25/19 10/12/19 History LORazepam [Ativan] 0.5 mg PO BID@1600,0 09/25/19 10/12/19 History LORazepam [Ativan] 1 mg PO DAILY PRN 09/25/19 10/12/19 History Levothyroxine Sodium [Synthroid] 25 mcg PO DAILY@59909/25/19 10/12/19 History OXcarbazepine [Oxtellar Xr] 600 mg PO BID@0600,1800 09/25/19 10/12/19 History QUEtiapine [SEROquel] 200 mg PO HS@199909/25/19 10/12/19 History Sodium Chloride Tab 1 gm PO TID@0600,1200,1800 09/25/19 10/12/19 History Vitamin B Complex/Folic Acid 0.4 mg PO DAILY@59909/25/19 10/12/19 History [Vitamin B Complex Tablet] Vitamin E 100 unit PO TID@0600,1800,219909/25/19 10/12/19 History Diastat 10mg 10 mg RECTAL ONCE PRN 09/26/19 10/12/19 History Divalproex [Depakote] 1,000 mg PO DAILY@1800 09/26/19 10/12/19 History Selenium Sul 1% Shampoo 1 applic TOPICAL DIRECTED PRN 09/26/19 10/12/19 History Psyllium Husk 100% [Metamucil 6 gm PO DAILY #30 packet 10/02/19 10/12/19 Rx Packet] Tamsulosin [Flomax] 0.4 mg PO HS #30 cap.er.24h 10/02/19 10/12/19 Rx Bisacodyl 10 mg RECTAL Q72H PRN 10/12/19 10/12/19 History Cetirizine HCl [Zyrtec] 10 mg PO HS@219910/12/19 10/12/19 History Docusate [Colace] 100 mg PO BID PRN 10/12/19 10/12/19 History Selsun Blue Sha 1% 1 applic TOPICAL DIRECTED 10/12/19 10/12/19 History Allergies Allergy/AdvReac Type Severity Reaction Status Date / Time brivaracetam [From Briviact] Allergy Unknown Verified 10/12/19 16:02 escitalopram [From Lexapro] Allergy Unknown Verified 10/12/19 16:02 fluoxetine [From Prozac] Allergy Unknown Verified 10/12/19 16:02 haloperidol [From Haldol] Allergy Unknown Verified 10/12/19 16:02 lacosamide [From Vimpat] Allergy Unknown Verified 10/12/19 16:02 methylphenidate Allergy Unknown Verified 10/12/19 16:02 [From Ritalin] Penicillins Allergy Unknown Verified 10/12/19 16:02 phenobarbital Allergy Unknown Verified 10/12/19 16:02 phenytoin [From Dilantin] Allergy Unknown Verified 10/12/19 16:02 sulfamethoxazole Allergy Unknown Verified 10/12/19 16:02 [From Bactrim] trimethoprim [From Bactrim] Allergy Unknown Verified 10/12/19 16:02 Physical Exam Vitals: Vital Signs Temp Pulse Pulse Resp BP BP Pulse Ox 10/12/19 20:00 17 10/12/19 19:27 98.7 F 65 169/94 97 10/12/19 19:11 97.6 F 84 18 138/90 98 10/12/19 17:43 66 18 140/90 100 10/12/19 14:59 97.5 F L 65 18 137/93 94 L Intake and Output 10/12/19 10/12/19 10/12/19 06:59 14:59 22:59 Other: Voiding Method Diaper Weight 63.503 kg 63.503 kg PHYSICAL EXAMINATION: Patient is lying in the bed comfortably, no acute distress, awake alert Not oriented.. HEENT: Normocephalic. Neck is supple. Pupils reactive. Nostrils clear. Oral cavity is moist. Ears reveal no drainage. Neck reveals no JVD, carotid bruits, or thyromegaly. CHEST EXAMINATION: Trachea is central. Symmetrical expansion. Copious bronchial secretions., No wheezing. Minimal right basilar crackles. CARDIAC: Normal S1, S2 with no gallops. No murmurs ABDOMEN: Soft. Bowel sounds normal. No organomegaly. No abdominal bruits. Extremities: reveal no edema. No clubbing or cyanosis. Neurologically awake, alert, Patient is mentally challenged. Able to move his extremities while in bed. Skin: No rash or skin lesions. Psychiatric: Coperative. Could not be assessed completely Musculoskeletal: No joint swelling or deformity. Results CBC & Chem 7: 10/12/19 15:32 10/12/19 15:32 Labs: Abnormal Lab Results - Last 24 Hours (Table) 10/12/19 10/12/19 Range/Units 15:32 15:32 RBC 4.27 L (4.30-5.90) m/uL Hct 38.7 L (39.0-53.0) % Glucose 126 H (74-99) mg/dL Thrombosis Risk Factor Assmnt - DVT/VTE Prophylaxis DVT/VTE Prophylaxis: Pharmacologic Prophylaxis ordered - Choose All That Apply Any of the Below Risk Factors Present?: Yes Each Factor Represents 1 point: Age 41-60 years, Medical pt on bed rest Other Risk Factors: Yes Each Risk Factor Represents 2 Points: Patient confined to bed Thrombosis Risk Factor Assessment Total Risk Factor Score: 4 Thrombosis Risk Factor Assessment Level: Moderate Risk Assessment and Plan Assessment: Failure to thrive with decreased oral intake Fecal impaction of colon Dehydration and volume depletion Recent right lower lobe pneumonia. Improving. Developmentally challenged Autism History of epilepsy Hypothyroidism DVT prophylaxis with heparin subcu. Plan: Patient will be continued on IV hydration and stool softeners and laxatives and suppositories were added. Continue with home medications. Antibiotics were off ceftriaxone and follow-up closely. Further recommendations based on the clinical course. Discussed with caregiver at bedside in detail. Time with Patient: Greater than 30
[2019-10-12] MEDS: HEPARIN SODIUM,PORCINE 5,000 UNIT/ML 1 ML VIAL SQ SCH (23:21)
[2019-10-13] MEDS: SODIUM CHLORIDE 0.9% 1,000 ML IV SCH ×2 (05:23→12:34)
[2019-10-13] MEDS: OXCARBAZEPINE 600 MG PO SCH ×2 (05:30→18:04)
[2019-10-13] MEDS: LEVOTHYROXINE 25 MCG TAB PO SCH (05:32)
[2019-10-13] MEDS: BENZTROPINE MESYLATE 1 MG TAB PO SCH ×2 (05:32→21:08)
[2019-10-13] MEDS ORDERED: DIVALPROEX 500 MG TABLET.DR PO SCH (06:00)
--- NOTE | 2019-10-13 08:11 | XR ---
EXAMINATION TYPE: XR chest 1V portable DATE OF EXAM: 10/13/2019 Comparison: 10/12/2019 Clinical History: 49-year-old male pneumonia Findings: Heart is mildly enlarged. Increased patchy peripheral left midlung opacity. Gentle spinal curvature. No pleural effusion. Impression: Redemonstrated cardiomegaly. Some increased patchy density peripheral left midlung could represent at electasis or developing pneumonia. Clinically correlate.
[2019-10-13] MEDS: HEPARIN SODIUM,PORCINE 5,000 UNIT/ML 1 ML VIAL SQ SCH ×2 (08:58→15:29)
[2019-10-13] MEDS: DEMECLOCYCLINE 150 MG TAB PO SCH ×3 (08:59→18:04)
[2019-10-13] MEDS: PSYLLIUM HUSK 100% 6 GM PACKET PO SCH (08:59)
[2019-10-13] MEDS: GABAPENTIN 300 MG CAP PO SCH ×4 (09:01→21:08)
[2019-10-13] MEDS: LORazepam 0.5 MG TAB PO SCH ×2 (15:29→21:08)
[2019-10-13] MEDS: POLYETHYLENE GLYCOL 3350 17 GM POWD.PACK PO SCH (16:35)
[2019-10-13] MEDS: DIVALPROEX 500 MG TABLET.DR PO SCH (18:03)
[2019-10-13] MEDS: LORATADINE 10 MG TAB PO SCH (21:08)
[2019-10-13] MEDS: QUEtiapine 200 MG TAB PO SCH (21:08)
[2019-10-13] MEDS ORDERED: FLUMAZENIL 0.1 MG/ML 5 ML VIAL IVP PRN (23:22)
[2019-10-13 23:35] LABS: Glucose,Whole Blood 98 mg/dL (75-99)
[2019-10-13] MEDS ORDERED: FUROSEMIDE 10 MG/ML 4 ML VIAL IV STA (23:37)
--- NOTE | 2019-10-14 00:04 | XR ---
EXAMINATION TYPE: XR chest 1V portable DATE OF EXAM: 10/13/2019 COMPARISON: Today HISTORY: Respiratory distress TECHNIQUE: FINDINGS: Heart and mediastinum are normal. There is probably some mild right perihilar infiltrate. T here is no heart failure. There is no pleural effusion. The left lung is clear. There is no pleural e ffusion. There are chest leads. Bony thorax is intact. IMPRESSION: There is probably some mild right lower lobe perihilar infiltrate that is the same or inc reased compared to this morning. No heart failure seen.
[2019-10-14] MEDS: HEPARIN SODIUM,PORCINE 5,000 UNIT/ML 1 ML VIAL SQ SCH ×3 (00:14→15:39)
[2019-10-14 00:27] LABS: ABG PCO2 43 mmHg (35-45); ABG PH 7.43 (7.35-7.45); Allen Test Performed? Yes
[2019-10-14 00:31] LABS: ABG HCO3 29 mmol/L (21-25)
[2019-10-14 00:32] LABS: ABG Base Excess 4.5 mmol/L; ABG TCO2 30 mmol/L (19-24)
[2019-10-14] MEDS: LEVOTHYROXINE 25 MCG TAB PO SCH (03:53)
[2019-10-14] MEDS: BENZTROPINE MESYLATE 1 MG TAB PO SCH ×2 (03:53→21:31)
[2019-10-14] MEDS: OXCARBAZEPINE 600 MG PO SCH ×2 (03:53→17:20)
[2019-10-14] MEDS: SODIUM CHLORIDE 0.9% IVPB SCH ×3 (05:26→17:37)
[2019-10-14] MEDS: SODIUM CHLORIDE 0.9% 1,000 ML IV SCH (05:26)
[2019-10-14] MEDS: VALPROATE SODIUM IVPB SCH ×3 (05:26→17:37)
[2019-10-14] MEDS: PSYLLIUM HUSK 100% 6 GM PACKET PO SCH (07:58)
[2019-10-14] MEDS: POLYETHYLENE GLYCOL 3350 17 GM POWD.PACK PO SCH (07:58)
[2019-10-14] MEDS: DEMECLOCYCLINE 150 MG TAB PO SCH ×3 (07:58→17:37)
[2019-10-14] MEDS: GABAPENTIN 300 MG CAP PO SCH ×4 (07:58→21:30)
[2019-10-14] MEDS: metroNIDAZOLE-NS PMX 500 MG in SALINE 1 100ML.BAG IVPB SCH ×2 (07:59→16:10)
[2019-10-14] MEDS: LORazepam 0.5 MG TAB PO SCH ×2 (15:39→21:31)
--- NOTE | 2019-10-14 16:02 | CONS ---
CONSULTATION PULMONARY/CRITICAL CARE CONSULTATION: DATE OF SERVICE: 10/14/2019 This is a gentleman who was admitted through the emergency department on was admitted on October 11. He is a 49-year-old male with a history of autism, who apparently was recently inpatient for pneumonia from July 25 until October 01. He was brought in because of decreased oral intake, weakness and stumbling. He also apparently was noted to have gurgling sounds from his chest. In addition, he apparently was constipated and had decreased urinary output. There was no reports of any fevers or chills. There was no nausea, vomiting. The patient is nonverbal, unable to give any information. All the information in the emergency room was gained from the caregiver. The patient was apparently on antibiotics for a period of time after being discharged from his last admission. His last discharge was October 01. He is currently resting comfortably on AIRVO. His AIRVO settings included 50 L/minute and 66% FiO2. When they called me last night about this patient, they told me the patient was a DO NOT RESUSCITATE, DO NOT INTUBATE patient. They wanted to move the patient to the ICU, but I thought really there was nothing that we could do differently in the ICU that we could on do on the floor. I did recommend BiPAP and gait settings, but apparently he did not tolerate the BiPAP and for that reason, ended up on the AIRVO. Current home medications include benztropine, demeclocycline, Depakote, Neurontin, Ativan, Synthroid, oxcarbazepine, Seroquel, sodium chloride tablet, vitamin B complex, vitamin E, Diastat 10 mg, Depakote, selenium shampoo, Bisacodyl, Zyrtec, Colace, psyllium packets, and Flomax. ALLERGIES: Multiple and include RIVACT, LEXAPRO, PROZAC, HALDOL, VIMPAT, RITALIN, PENICILLIN, PHENOBARBITAL, DILANTIN, BACTRIM, TRIMETHOPRIM. PAST MEDICAL HISTORY: Positive for autism, seizure disorder, and PICA. SURGICAL HISTORY: Unknown. Apparently there is no alcohol or illicit drug use. No tobacco use. FAMILY HISTORY: Not known. REVIEW OF SYSTEMS: Could not be obtained. He apparently according to the ER note came in with episodes of weakness and falling as well as gurgling from his chest. Current vital signs reviewed. Temperature is 98, heart rate 65, respiratory rate 14, blood pressure 131/85 mean 100, saturations are 94% on the AIRVO at 50 L/minute and 66% O2. Appears in no acute distress. Nonverbal. HEENT: Examination is grossly unremarkable. The AIRVO cannula noted. NECK: Supple, full range of motion. No adenopathy. Neck veins are flat. CARDIOVASCULAR: Examination reveals regular rhythm and rate. Heart sounds are distant. LUNGS: Reveal a few scattered coarse rhonchi. No wheezes or crackles. The patient does not take deep breaths. ABDOMEN: Soft. No bowel sounds. EXTREMITIES: Intact. SKIN: Without rash. NEUROLOGIC: Examination is difficult to assess given his autism. LABS: Reviewed. White count 3.8, hemoglobin 13.2, hematocrit 38.7, platelet count 319,000. PT, INR and PTT all normal. Blood gases show pO2 of 53, a pCO2 of 43 and a pH is 7.43. That was apparently on 100% oxygen. Sodium, potassium, chloride, CO2 all normal. Anion gap normal. BUN and creatinine were 11 and 0.97. The rest of the labs look okay. Urine was clear. Ross virus testing was negative. Microbiology is negative. The chest x-ray shows some minimal infiltrates in the right parahilar region. There may be some atelectasis at the lung base. Subsequent x-ray shows some cardiomegaly and some patchy atelectasis or infiltrate in the left mid lung. A chest x-ray most recently shows some patchy mild right lower lobe perihilar infiltrate. Microbiology is currently negative. MEDICATIONS: Reviewed. He is currently on Flagyl as his only antibiotic. ASSESSMENT: 1. Possible aspiration of either fluid and/or pills as described to me by the nurse last night, with resultant respiratory distress requiring initially high-flow oxygen, then BiPAP, then AIRVO. 2. Multiple other medical problems and comorbidities as previously listed. PLAN: Currently, the patient is on appropriate medications including Flagyl. Additional recommendations and suggestions are forthcoming. One might consider getting an Infectious Disease consultation. Additional recommendations and suggestions are forthcoming. Prognosis is poor. The patient does not need to come to the ICU. He can be given high-flow oxygen or BiPAP therapy. In addition, AIRVO is another option for the patient. Additional recommendations and suggestions are forthcoming. MMODL / IJN: [id number] /
[2019-10-14] MEDS: QUEtiapine 200 MG TAB PO SCH (21:30)
[2019-10-14] MEDS: LORATADINE 10 MG TAB PO SCH (21:30)
[2019-10-15] MEDS: SODIUM CHLORIDE 0.9% IVPB SCH ×5 (02:57→23:26)
[2019-10-15] MEDS: VALPROATE SODIUM IVPB SCH ×5 (02:57→23:26)
[2019-10-15] MEDS: HEPARIN SODIUM,PORCINE 5,000 UNIT/ML 1 ML VIAL SQ SCH ×4 (02:57→23:26)
[2019-10-15] MEDS: SODIUM CHLORIDE 0.9% 1,000 ML IV SCH (03:30)
[2019-10-15] MEDS: metroNIDAZOLE-NS PMX 500 MG in SALINE 1 100ML.BAG IVPB SCH ×3 (04:08→20:29)
[2019-10-15] MEDS: LEVOTHYROXINE 25 MCG TAB PO SCH (05:50)
[2019-10-15] MEDS: BENZTROPINE MESYLATE 1 MG TAB PO SCH ×2 (05:50→19:56)
[2019-10-15] MEDS: OXCARBAZEPINE 600 MG PO SCH ×2 (05:50→16:17)
[2019-10-15] MEDS: POLYETHYLENE GLYCOL 3350 17 GM POWD.PACK PO SCH (08:53)
[2019-10-15] MEDS: PSYLLIUM HUSK 100% 6 GM PACKET PO SCH (08:53)
[2019-10-15] MEDS: GABAPENTIN 300 MG CAP PO SCH ×4 (09:03→19:56)
[2019-10-15] MEDS: DEMECLOCYCLINE 150 MG TAB PO SCH ×3 (09:03→16:17)
[2019-10-15] MEDS: IPRATROPIUM-ALBUTEROL 3 ML NEB INHALATION SCH ×6 (09:20→19:59)
--- NOTE | 2019-10-15 09:29 | XR ---
EXAMINATION TYPE: XR chest 1V portable DATE OF EXAM: 10/15/2019 HISTORY: Possible Aspiration. REFERENCE: Previous study dated 10/13/2019. FINDINGS: There has developed extensive opacity in the right lower lung. There is atelectatic change at the left lung base. Heart size is obscured. I could not exclude a right-sided effusion. IMPRESSION: MARKED WORSENING IN THE PATIENT'S RIGHT LOWER LUNG AIRSPACE DISEASE.
[2019-10-15] MEDS ORDERED: FUROSEMIDE 10 MG/ML 4 ML VIAL IV STA (09:51)
--- NOTE | 2019-10-15 10:28 | P.PN ---
Subjective Progress Note Date: 10/13/19 Principal diagnosis: Failure to thrive. Recent pneumonia Patient is a 49-year-old male with a known history of developmentally challenged, autism and history of epilepsy who was recently discharged from the hospital on 10/02/2019, was treated for bacterial pneumonia, completed antibiotic course with Augmentin was brought to the hospital from [facility] home due to patient being more sleepy and falling and imbalance. Patient does have a legal guardian and called her PCP who recommended to go to ER. Patient has been having decreased oral intake and is more weak for the past few days. Patient is also having gurgling sounds on the lungs. Patient was also having decreased urinary output and also constipation. Patient did have a small bowel movement this morning otherwise. No complaints of vomiting. No fever no chills. Patient is nonverbal at baseline unable to provide any history. Most of the history was taken from the medical records and also caregiver/guardian at bedside. Vitals on admission blood pressure 137/93, pulse is 65 respiration 18 T-max 97.5 and pulse ox was 94% on room air Chest x-ray showed improving right-sided acute infiltrates. Suspect a retrocardiac acute infiltrate and atelectasis. Background lower lung volumes and cardiomegaly redemonstrated. KUB x-ray showed overall nonspecific but favored nonobstructive bowel gas pattern. Fairly moderate diffuse colonic fecal stasis noted. Laboratory data showed WBC 3.8, hemoglobin 13.2, platelets 219 Sodium 140 potassium 4.8 chloride 104, bicarb is 29, BUN 11 and creatinine 0.97 Liver enzymes are not elevated Magnesium 2.0 Lactic acid 1.4 Troponin x1- BNP 317 UA negative for infection 10/13/2019 Patient is currently lying in the bed but lethargic and confused. Able to open his eyes with verbal commands. Patient is being continued on IV fluids at 75 mL per hour which will be lower to 50 mL per hour. Currently saturating well on room air. Otherwise patient is not eating at all. Swallow study was ordered. Patient will be continued on stool softeners and laxatives. No diarrhea. no vomiting episodes. Complete review of systems could not be obtained from the patient. Patient will be continued on Current medications reviewed. Objective - Vital Signs Vital signs: Vital Signs Temp 97.9 F 10/13/19 14:18 Pulse 59 L 10/13/19 14:18 Resp 16 10/13/19 14:18 BP 142/90 10/13/19 14:18 Pulse Ox 97 10/13/19 14:18 Intake & Output 10/12/19 10/13/19 10/13/19 18:59 06:59 18:59 Intake Total 2100 1190 Output Total 1500 Balance 2100 -310 Weight 63.503 kg Intake: IV 650 Sodium Chloride 0.9% 1, 600 000 ml @ 100 mls/hr IV . Q10H KHAI Rx#:[id number] cefTRIAXone 1 gm In 50 Sodium Chloride 0.9% 50 ml @ 100 mls/hr IVPB Q24HR KHAI Rx#:[id number] Intake, IV Titration 2100 Amount Sodium Chloride 0.9% 1, 1600 000 ml @ 100 mls/hr IV . Q10H KHAI Rx#:[id number] Sodium Chloride 0.9% 500 500 ml 500 ml @ 999 mls/hr IV .Q31M STA Rx#:[id number] Oral 540 Output: Urine 1500 Other: Voiding Method Diaper # Voids 2 - Exam PHYSICAL EXAMINATION: Patient is lying in the bed comfortably, no acute distress, awake alert Not oriented.. HEENT: Normocephalic. Neck is supple. Pupils reactive. Nostrils clear. Oral cavity is moist. Ears reveal no drainage. Neck reveals no JVD, carotid bruits, or thyromegaly. CHEST EXAMINATION: Trachea is central. Symmetrical expansion. Copious bronchial secretions., No wheezing. Minimal right basilar crackles. CARDIAC: Normal S1, S2 with no gallops. No murmurs ABDOMEN: Soft. Bowel sounds normal. No organomegaly. No abdominal bruits. Extremities: reveal no edema. No clubbing or cyanosis. Neurologically awake, alert, Patient is mentally challenged. Able to move his extremities while in bed. Skin: No rash or skin lesions. Psychiatric: Coperative. Could not be assessed completely Musculoskeletal: No joint swelling or deformity. - Labs CBC & Chem 7: 10/12/19 15:32 10/12/19 15:32 Labs: Abnormal Lab Results - Last 24 Hours (Table) 10/12/19 10/12/19 Range/Units 15:32 15:32 RBC 4.27 L (4.30-5.90) m/uL Hct 38.7 L (39.0-53.0) % Glucose 126 H (74-99) mg/dL Assessment and Plan Assessment: Failure to thrive with decreased oral intake Fecal impaction of colon Dehydration and volume depletion Recent right lower lobe pneumonia. Improving. Developmentally challenged Autism History of epilepsy Hypothyroidism DVT prophylaxis with heparin subcu. Plan: Patient will be continued on IV hydration and stool softeners and laxatives and suppositories were added. Continue with home medications. Antibiotics were off ceftriaxone and follow-up closely. Further recommendations based on the clinical course. Discussed with caregiver at bedside in detail. Time with Patient: Greater than 30
--- NOTE | 2019-10-15 10:32 | P.PN ---
Subjective Progress Note Date: 10/14/19 Principal diagnosis: Failure to thrive. Recent pneumonia Patient is a 49-year-old male with a known history of developmentally challenged, autism and history of epilepsy who was recently discharged from the hospital on 10/02/2019, was treated for bacterial pneumonia, completed antibiotic course with Augmentin was brought to the hospital from [facility] home due to patient being more sleepy and falling and imbalance. Patient does have a legal guardian and called her PCP who recommended to go to ER. Patient has been having decreased oral intake and is more weak for the past few days. Patient is also having gurgling sounds on the lungs. Patient was also having decreased urinary output and also constipation. Patient did have a small bowel movement this morning otherwise. No complaints of vomiting. No fever no chills. Patient is nonverbal at baseline unable to provide any history. Most of the history was taken from the medical records and also caregiver/guardian at bedside. Vitals on admission blood pressure 137/93, pulse is 65 respiration 18 T-max 97.5 and pulse ox was 94% on room air Chest x-ray showed improving right-sided acute infiltrates. Suspect a retrocardiac acute infiltrate and atelectasis. Background lower lung volumes and cardiomegaly redemonstrated. KUB x-ray showed overall nonspecific but favored nonobstructive bowel gas pattern. Fairly moderate diffuse colonic fecal stasis noted. Laboratory data showed WBC 3.8, hemoglobin 13.2, platelets 219 Sodium 140 potassium 4.8 chloride 104, bicarb is 29, BUN 11 and creatinine 0.97 Liver enzymes are not elevated Magnesium 2.0 Lactic acid 1.4 Troponin x1- BNP 317 UA negative for infection 10/13/2019 Patient is currently lying in the bed but lethargic and confused. Able to open his eyes with verbal commands. Patient is being continued on IV fluids at 75 mL per hour which will be lower to 50 mL per hour. Currently saturating well on room air. Otherwise patient is not eating at all. Swallow study was ordered. Patient will be continued on stool softeners and laxatives. No diarrhea. no vomiting episodes. Complete review of systems could not be obtained from the patient. 10/14/2019 Patient is lethargic and confused. Not following verbal commands. Overnight patient became more short of breath. ABGs were done. Chest x-ray this morning showed probably some mild right lower lobe hilar infiltrate and there is same or increased compared to the morning. No heart failure is seen. Patient was given IV Lasix prior to chest x-ray. Pulmonary was consulted. Antibodies were added Flagyl along with ceftriaxone for possible aspiration. Speech and swallow evolution was done patient is only taking thickened liquids. Discussed with his sister/caregiver. Current CODE STATUS is DO NOT RESUSCITATE/DO NOT INTUBATE. Family is considering comfort care with the p atient does not improve in the next 24-48 hours. Current medications reviewed. Objective - Vital Signs Vital signs: Vital Signs Temp 98.7 F 10/14/19 19:14 Pulse 84 10/14/19 19:14 Resp 16 10/14/19 19:14 BP 142/93 10/14/19 19:14 Pulse Ox 93 L 10/14/19 19:14 Intake & Output 10/14/19 10/14/19 10/15/19 06:59 18:59 06:59 Intake Total 800 500 Output Total 1725 850 Balance -925 -350 Intake: IV 800 400 Sodium Chloride 0.9% 1, 800 400 000 ml @ 50 mls/hr IV . Q20H KHAI Rx#:[id number] Intake, IV Titration 100 Amount metroNIDAZOLE-NS PMX 500 100 mg In Saline 1 100ml.bag @ 100 mls/hr IVPB Q8H KHAI Rx#:[id number] Output: Urine 1725 850 Other: Voiding Method Diaper # Bowel Movements 1 - Exam PHYSICAL EXAMINATION: Patient is lying in the bed comfortably, no acute distress, awake alert Not oriented.. HEENT: Normocephalic. Neck is supple. Pupils reactive. Nostrils clear. Oral cavity is moist. Ears reveal no drainage. Neck reveals no JVD, carotid bruits, or thyromegaly. CHEST EXAMINATION: Trachea is central. Symmetrical expansion. Copious bronchial secretions., No wheezing. right basilar crackles. CARDIAC: Normal S1, S2 with no gallops. No murmurs ABDOMEN: Soft. Bowel sounds normal. No organomegaly. No abdominal bruits. Extremities: reveal no edema. No clubbing or cyanosis. Neurologically awake, alert, Patient is mentally challenged. Able to move his extremities while in bed. Skin: No rash or skin lesions. Psychiatric: Coperative. Could not be assessed completely Musculoskeletal: No joint swelling or deformity. - Labs CBC & Chem 7: 10/12/19 15:32 10/12/19 15:32 Labs: Abnormal Lab Results - Last 24 Hours (Table) 10/14/19 Range/Units 00:00 ABG pO2 53 L* (83-108) mmHg ABG HCO3 29 H (21-25) mmol/L ABG Total CO2 30 H (19-24) mmol/L ABG O2 Saturation 86.0 L (94-97) % Microbiology - Last 24 Hours (Table) 10/12/19 18:44 Blood Culture - Preliminary Blood No Growth after 48 hours Assessment and Plan Assessment: Failure to thrive with decreased oral intake Possible aspiration pneumonia with acute hypoxic respiratory failure Fecal impaction of colon Dehydration and volume depletion Recent right lower lobe pneumonia. Improving. Developmentally challenged Autism History of epilepsy Hypothyroidism DVT prophylaxis with heparin subcu. Plan: Patient will be continued on gentle IV hydration and stool softeners and laxatives and suppositories were added. Oral diet as per speech/swallow evaluation. Continue with antibiotics the form of ceftriaxone and vaginal. Monitor fluid status. Continue with home medications Further recommendations based on the clinical course. Discussed with caregiver at bedside in detail. Time with Patient: Greater than 30
--- NOTE | 2019-10-15 13:31 | PN ---
PROGRESS NOTE PULMONARY/CRITICAL CARE PROGRESS NOTE: DATE OF SERVICE: 10/15/2019 This is a 49-year-old gentleman with a history of autism. The patient likely had an episode of aspiration of either food, fluid or pillows. I did tell the nurse today to keep him n.p.o. for now. The patient's head of bed should be elevated at all times and he should have aspiration precautions. The patient developed some respiratory distress after the episode of aspiration. The patient was placed on high-flow oxygen, then BiPAP, then AIRVO. Anyway, he seems to be doing a bit better. Again, nothing to eat or drink by mouth at this time. The patient may benefit from a PEG tube and/or a Dobbhoff tool. We will have to square that with the family to see what they want. His overall prognosis is poor. His other medical problems include autism, seizure disorder, and pica. PHYSICAL EXAMINATION: VITAL SIGNS: Current vital signs are reviewed. Temperature is 98.3, heart rate 90, respiratory rate is 20, blood pressure 135/84, mean 101, 2 L saturation 90-91%. Appears in no acute distress. Has very loud congested respirations. HEENT: Examination is grossly unremarkable. Nasal O2 noted. Neck is supple. Full range of motion. CARDIOVASCULAR: Examination reveals regular rhythm rand ate. Heart rate 88 beats per minute. S1, S2 normal. Heart sounds are distant. They were obscured by abnormal lung sounds. PULMONARY: Examination reveals coarse bilateral rhonchi. No wheezes. No crackles. ABDOMEN: Soft. EXTREMITIES are intact. No significant edema. SKIN: Without rash. NEUROLOGIC: Examination is difficult to assess. He is autistic. He does not respond to any verbal stimuli. The patient does move all 4 extremities. No recent blood work noted. Blood gas was done yesterday showing a pO2 of 53, pCO2 of 43 and a pH 7.43. That was on 100%. Microbiology is negative. A chest x-ray from today shows worsening in the patient's right lower lobe airspace disease, again, likely consistent with the chronic aspiration. Medications are reviewed. ASSESSMENT: 1. Aspiration of either liquid, food, or medication, with resultant respiratory distress requiring initially high-flow O2, then BiPAP, then AIRVO. Currently, the patient has been weaned to 2 L nasal cannula. 2. History of seizure disorder. 3. History of autism. 4. History of pica. PLAN: The patient will have updrafts added. I asked the nurse to place the patient on DuoNeb q.i.d. and p.r.n. In addition, she is able to titrate the oxygen to maintain saturations above 90%. Finally, we recommend aspiration precautions, which include head of bed elevated at all times and the patient should be n.p.o. for now until we determine whether or not we are going to feed him either with a Dobbhoff tube or PEG tube. Additional recommendations and suggestions are forthcoming. The patient is a DO NOT INTUBATE/DO NOT RESUSCITATE patient. MMODL / IJN: [id number] /
[2019-10-15] MEDS: LORazepam 0.5 MG TAB PO SCH ×2 (16:16→19:57)
[2019-10-15] MEDS: QUEtiapine 200 MG TAB PO SCH (19:56)
[2019-10-15] MEDS: LORATADINE 10 MG TAB PO SCH (19:57)
[2019-10-16] MEDS: metroNIDAZOLE-NS PMX 500 MG in SALINE 1 100ML.BAG IVPB SCH ×3 (04:12→22:02)
[2019-10-16] MEDS: SODIUM CHLORIDE 0.9% IVPB SCH ×4 (05:34→23:19)
[2019-10-16] MEDS: VALPROATE SODIUM IVPB SCH ×4 (05:34→23:19)
[2019-10-16] MEDS: OXCARBAZEPINE 600 MG PO SCH ×2 (05:37→15:10)
[2019-10-16] MEDS: BENZTROPINE MESYLATE 1 MG TAB PO SCH ×2 (05:37→22:02)
[2019-10-16] MEDS: LEVOTHYROXINE 25 MCG TAB PO SCH (05:37)
--- NOTE | 2019-10-16 06:08 | CT ---
EXAMINATION TYPE: CT brain abebe vazquez DATE OF EXAM: 10/16/2019 COMPARISON: None HISTORY: Fall CT DLP: 1591.60 mGycm Automated exposure control for dose reduction was used. There is some cerebral cortical atrophy. There is mild symmetric thalamic calcification. There is no mass effect nor midline shift. There is no sign of intracranial hemorrhage. The calvarium is intact. Skull base is intact. Temporal bones of normal aeration. There is moderate hypertrophic anterior spur formation from C2 to C7 vertebra. The posterior elements are intact. There is no evidence of a fracture. Skull base is intact. I see no bony destructive proc ess. IMPRESSION: Moderate anterior hypertrophic spurring in the cervical spine. No fracture seen. Cerebral atrophy. No acute intracranial abnormality.
[2019-10-16] MEDS: HEPARIN SODIUM,PORCINE 5,000 UNIT/ML 1 ML VIAL SQ SCH ×3 (07:57→23:20)
[2019-10-16] MEDS: DEMECLOCYCLINE 150 MG TAB PO SCH ×3 (08:08→15:10)
[2019-10-16] MEDS: IPRATROPIUM-ALBUTEROL 3 ML NEB INHALATION SCH ×4 (08:50→20:49)
[2019-10-16] MEDS: GABAPENTIN 300 MG CAP PO SCH ×5 (08:56→22:03)
[2019-10-16] MEDS: POLYETHYLENE GLYCOL 3350 17 GM POWD.PACK PO SCH (08:56)
[2019-10-16] MEDS: PSYLLIUM HUSK 100% 6 GM PACKET PO SCH (08:56)
--- NOTE | 2019-10-16 14:29 | P.PN ---
Subjective Progress Note Date: 10/16/19 Principal diagnosis: The patient is seen today 10/16/2019. This is a 57-year-old gentleman with a history of autism. He had developed respiratory distress after episode of aspiration. He remains in aspiration precautions. Early this morning he was found on the floor. Computed tomography scan of the brain and C-spine revealed no acute intracranial abnormality. No cervical fractures noted. There is cerebral atrophy. Moderate anterior hypertrophic spurring in the cervical spine. Presently, he is resting in bed. Maintaining O2 saturations in the 90s on room air. He's afebrile. Hemodynamically stable. Blood culture revealing no growth. Objective - Vital Signs Vital signs: Vital Signs Temp 97.9 F 10/16/19 07:00 Pulse 74 10/16/19 07:00 Resp 18 10/16/19 08:00 BP 137/91 10/16/19 07:00 Pulse Ox 92 L 10/16/19 07:00 Intake & Output 10/15/19 10/16/19 10/16/19 18:59 06:59 18:59 Intake Total 80 Output Total 2350 250 Balance -2350 -170 Intake: IV 80 Sodium Chloride 0.9% 1, 80 000 ml @ 50 mls/hr IV . Q20H KHAI Rx#:[id number] Output: Urine 2350 250 Other: Voiding Method Diaper Diaper Diaper # Bowel Movements 1 - Exam GENERAL EXAM: Alert, frail, autistic, mentally challenged 49-year-old gentleman, on room air, appears comfortable in no apparent distress. HEAD: Normocephalic. EYES: Normal reaction of pupils, equal size. NOSE: Clear with pink turbinates. THROAT: No erythema or exudates. NECK: No masses, no JVD. CHEST: No chest wall deformity. LUNGS: Equal air entry with crackles in the right base CVS: S1 and S2 normal with no audible murmur, regular rhythm. ABDOMEN: No hepatosplenomegaly, normal bowel sounds, no guarding or rigidity. SPINE: Some deformities SKIN: No rashes CENTRAL NERVOUS SYSTEM: Unable to assess, tone is normal in all 4 extremities. EXTREMITIES: Contractures. There is no peripheral edema. No clubbing, no cyanosis. Peripheral pulses are intact. - Labs CBC & Chem 7: 10/12/19 15:32 10/12/19 15:32 Labs: Microbiology - Last 24 Hours (Table) 10/12/19 18:44 Blood Culture - Preliminary Blood No Growth after 72 hours Assessment and Plan Assessment: 1 Acute aspiration of either liquid food or medication with acute hypoxic respiratory failure initially requiring BiPAP and AirVo high flow oxygen device, recovered and currently on room air 2 History of seizure disorder 3 History of autism 4 History of pica Plan: The patient was seen and evaluated by Dr. Ybarra Continue aspiration precautions Continue antibiotics Continue bronchodilators May require Dobbhoff or PEG tube placement for nutrition DO NOT RESUSCITATE/DO NOT INTUBATE CODE STATUS We will continue to follow I, the cosigning physician, performed a history & physical examination of the patient. Lungs sounds crackles in the right lung base. Maintaining good O2 saturations in the 90s on room air. I discussed the assessment and plan of care with my nurse practitioner, Yolanda Leung. I attest to the above note as dictated by her.
[2019-10-16] MEDS: LORazepam 0.5 MG TAB PO SCH ×2 (15:10→22:03)
[2019-10-16] MEDS: QUEtiapine 200 MG TAB PO SCH (22:03)
[2019-10-16] MEDS: LORATADINE 10 MG TAB PO SCH (22:03)
--- NOTE | 2019-10-17 00:28 | P.PN ---
Subjective Progress Note Date: 10/15/19 Principal diagnosis: Failure to thrive. Recent pneumonia Patient is a 49-year-old male with a known history of developmentally challenged, autism and history of epilepsy who was recently discharged from the hospital on 10/02/2019, was treated for bacterial pneumonia, completed antibiotic course with Augmentin was brought to the hospital from [facility] home due to patient being more sleepy and falling and imbalance. Patient does have a legal guardian and called her PCP who recommended to go to ER. Patient has been having decreased oral intake and is more weak for the past few days. Patient is also having gurgling sounds on the lungs. Patient was also having decreased urinary output and also constipation. Patient did have a small bowel movement this morning otherwise. No complaints of vomiting. No fever no chills. Patient is nonverbal at baseline unable to provide any history. Most of the history was taken from the medical records and also caregiver/guardian at bedside. Vitals on admission blood pressure 137/93, pulse is 65 respiration 18 T-max 97.5 and pulse ox was 94% on room air Chest x-ray showed improving right-sided acute infiltrates. Suspect a retrocardiac acute infiltrate and atelectasis. Background lower lung volumes and cardiomegaly redemonstrated. KUB x-ray showed overall nonspecific but favored nonobstructive bowel gas pattern. Fairly moderate diffuse colonic fecal stasis noted. Laboratory data showed WBC 3.8, hemoglobin 13.2, platelets 219 Sodium 140 potassium 4.8 chloride 104, bicarb is 29, BUN 11 and creatinine 0.97 Liver enzymes are not elevated Magnesium 2.0 Lactic acid 1.4 Troponin x1- BNP 317 UA negative for infection 10/13/2019 Patient is currently lying in the bed but lethargic and confused. Able to open his eyes with verbal commands. Patient is being continued on IV fluids at 75 mL per hour which will be lower to 50 mL per hour. Currently saturating well on room air. Otherwise patient is not eating at all. Swallow study was ordered. Patient will be continued on stool softeners and laxatives. No diarrhea. no vomiting episodes. Complete review of systems could not be obtained from the patient. 10/14/2019 Patient is lethargic and confused. Not following verbal commands. Overnight patient became more short of breath. ABGs were done. Chest x-ray this morning showed probably some mild right lower lobe hilar infiltrate and there is same or increased compared to the morning. No heart failure is seen. Patient was given IV Lasix prior to chest x-ray. Pulmonary was consulted. Antibodies were added Flagyl along with ceftriaxone for possible aspiration. Speech and swallow evolution was done patient is only taking thickened liquids. Discussed with his sister/caregiver. Current CODE STATUS is DO NOT RESUSCITATE/DO NOT INTUBATE. Family is considering comfort care with the p atient does not improve in the next 24-48 hours. 10/15/2019 Patient is nonverbal at baseline but opens eyes with verbal commands. Seems to be awake and alert. Patient was again short of breath this morning. IV fluids have been discontinued. Patient is also n.p.o. due to aspiration precautions. Patient was given another dose of Lasix. Chest x-ray showed marked worsening in the patient's right lower lung airspace disease. Otherwise patient is being continued on antibiotics in the form of ceftriaxone and Flagyl for possible aspiration pneumonia. Patient has been afebrile. Current medications reviewed. Objective - Vital Signs Vital signs: Vital Signs Temp 98.7 F 10/15/19 15:00 Pulse 97 10/15/19 15:00 Resp 20 10/15/19 15:00 BP 155/97 10/15/19 15:00 Pulse Ox 95 10/15/19 15:46 Intake & Output 10/14/19 10/15/19 10/15/19 18:59 06:59 18:59 Intake Total 500 Output Total 285 280 1004 Balance -350 -900 -2350 Intake: IV 400 Sodium Chloride 0.9% 1, 400 000 ml @ 50 mls/hr IV . Q20H [facility] Rx#:[id number] Intake, IV Titration 100 Amount metroNIDAZOLE-NS PMX 500 100 mg In Saline 1 100ml.bag @ 100 mls/hr IVPB Q8H [facility] Rx#:[id number] Output: Urine 476 392 1928 Other: Voiding Method Diaper # Bowel Movements 1 1 - Exam PHYSICAL EXAMINATION: Patient is lying in the bed comfortably, no acute distress, awake alert Not oriented.. HEENT: Normocephalic. Neck is supple. Pupils reactive. Nostrils clear. Oral cavity is moist. Ears reveal no drainage. Neck reveals no JVD, carotid bruits, or thyromegaly. CHEST EXAMINATION: Trachea is central. Symmetrical expansion. Copious bronchial secretions., No wheezing. right basilar crackles. CARDIAC: Normal S1, S2 with no gallops. No murmurs ABDOMEN: Soft. Bowel sounds normal. No organomegaly. No abdominal bruits. Extremities: reveal no edema. No clubbing or cyanosis. Neurologically awake, alert, Patient is mentally challenged. Able to move his extremities while in bed. Skin: No rash or skin lesions. Psychiatric: Coperative. Could not be assessed completely Musculoskeletal: No joint swelling or deformity. - Labs CBC & Chem 7: 10/12/19 15:32 10/12/19 15:32 Labs: Microbiology - Last 24 Hours (Table) 10/12/19 18:44 Blood Culture - Preliminary Blood No Growth after 48 hours Assessment and Plan Assessment: Failure to thrive with decreased oral intake Possible aspiration pneumonia with acute hypoxic respiratory failure Fecal impaction of colon Dehydration and volume depletion Recent right lower lobe pneumonia. Improving. Developmentally challenged Autism History of epilepsy Hypothyroidism DVT prophylaxis with heparin subcu. Plan: Patient will be continued on gentle IV hydration and stool softeners and laxatives and suppositories were added. thin liquid diet as per speech/swallow evaluation. NPO now Continue with antibiotics the form of ceftriaxone and flagyl. Monitor fluid status. Continue with home medications Further recommendations based on the clinical course. Discussed with caregiver at bedside in detail. Time with Patient: Greater than 30
--- NOTE | 2019-10-17 00:31 | P.PN ---
Subjective Progress Note Date: 10/16/19 Principal diagnosis: Failure to thrive. Recent pneumonia Patient is a 49-year-old male with a known history of developmentally challenged, autism and history of epilepsy who was recently discharged from the hospital on 10/02/2019, was treated for bacterial pneumonia, completed antibiotic course with Augmentin was brought to the hospital from [facility] home due to patient being more sleepy and falling and imbalance. Patient does have a legal guardian and called her PCP who recommended to go to ER. Patient has been having decreased oral intake and is more weak for the past few days. Patient is also having gurgling sounds on the lungs. Patient was also having decreased urinary output and also constipation. Patient did have a small bowel movement this morning otherwise. No complaints of vomiting. No fever no chills. Patient is nonverbal at baseline unable to provide any history. Most of the history was taken from the medical records and also caregiver/guardian at bedside. Vitals on admission blood pressure 137/93, pulse is 65 respiration 18 T-max 97.5 and pulse ox was 94% on room air Chest x-ray showed improving right-sided acute infiltrates. Suspect a retrocardiac acute infiltrate and atelectasis. Background lower lung volumes and cardiomegaly redemonstrated. KUB x-ray showed overall nonspecific but favored nonobstructive bowel gas pattern. Fairly moderate diffuse colonic fecal stasis noted. Laboratory data showed WBC 3.8, hemoglobin 13.2, platelets 219 Sodium 140 potassium 4.8 chloride 104, bicarb is 29, BUN 11 and creatinine 0.97 Liver enzymes are not elevated Magnesium 2.0 Lactic acid 1.4 Troponin x1- BNP 317 UA negative for infection 10/13/2019 Patient is currently lying in the bed but lethargic and confused. Able to open his eyes with verbal commands. Patient is being continued on IV fluids at 75 mL per hour which will be lower to 50 mL per hour. Currently saturating well on room air. Otherwise patient is not eating at all. Swallow study was ordered. Patient will be continued on stool softeners and laxatives. No diarrhea. no vomiting episodes. Complete review of systems could not be obtained from the patient. 10/14/2019 Patient is lethargic and confused. Not following verbal commands. Overnight patient became more short of breath. ABGs were done. Chest x-ray this morning showed probably some mild right lower lobe hilar infiltrate and there is same or increased compared to the morning. No heart failure is seen. Patient was given IV Lasix prior to chest x-ray. Pulmonary was consulted. Antibodies were added Flagyl along with ceftriaxone for possible aspiration. Speech and swallow evolution was done patient is only taking thickened liquids. Discussed with his sister/caregiver. Current CODE STATUS is DO NOT RESUSCITATE/DO NOT INTUBATE. Family is considering comfort care with the p atient does not improve in the next 24-48 hours. 10/15/2019 Patient is nonverbal at baseline but opens eyes with verbal commands. Seems to be awake and alert. Patient was again short of breath this morning. IV fluids have been discontinued. Patient is also n.p.o. due to aspiration precautions. Patient was given another dose of Lasix. Chest x-ray showed marked worsening in the patient's right lower lung airspace disease. Otherwise patient is being continued on antibiotics in the form of ceftriaxone and Flagyl for possible aspiration pneumonia. Patient has been afebrile. 10/16/2019 Patient is nonverbal at baseline. Resting in the bed comfortably. Seems to be more awake and alert today. Currently maintaining oxygen saturations on room air. Remains on antibiotics in the form of ceftriaxone and Flagyl due to possible aspiration pneumonia. Patient had CT head and cervical spine was done showed no acute intracranial abnormality. No cervical fractures noted. There is cerebral atrophy. Moderate anterior hypertrophic spurring in the cervical spine. Patient has been afebrile. Blood cultures showed no growth. Currently nothing by mouth and KVO. will try bedside swallow evaluation. Speech therapy is following. Current medications reviewed. Objective - Vital Signs Vital signs: Vital Signs Temp 97.9 F 10/16/19 14:48 Pulse 68 10/16/19 14:48 Resp 16 10/16/19 14:48 BP 157/98 10/16/19 14:48 Pulse Ox 96 10/16/19 14:48 Intake & Output 10/16/19 10/16/19 10/17/19 06:59 18:59 06:59 Intake Total 80 400 100 Output Total 250 Balance -170 400 100 Intake: IV 80 Sodium Chloride 0.9% 1, 80 000 ml @ 50 mls/hr IV . Q20H [facility] Rx#:[id number] Intake, IV Titration 400 100 Amount Valproate Sodium 625 mg 200 In Sodium Chloride 0.9% 100 ml @ 100 mls/hr IVPB Q6HR [facility] Rx#:[id number] cefTRIAXone 1 gm In 100 Sodium Chloride 0.9% 50 ml @ 100 mls/hr IVPB Q24HR [facility] Rx#:[id number] metroNIDAZOLE-NS PMX 500 100 100 mg In Saline 1 100ml.bag @ 100 mls/hr IVPB Q8H [facility] Rx#:[id number] Output: Urine 250 Other: Voiding Method Diaper Diaper # Bowel Movements 1 - Exam PHYSICAL EXAMINATION: Patient is lying in the bed comfortably, no acute distress, awake alert Not oriented.. HEENT: Normocephalic. Neck is supple. Pupils reactive. Nostrils clear. Oral cavity is moist. Ears reveal no drainage. Neck reveals no JVD, carotid bruits, or thyromegaly. CHEST EXAMINATION: Trachea is central. Symmetrical expansion. Copious bronchial secretions., No wheezing. right basilar crackles. CARDIAC: Normal S1, S2 with no gallops. No murmurs ABDOMEN: Soft. Bowel sounds normal. No organomegaly. No abdominal bruits. Extremities: reveal no edema. No clubbing or cyanosis. Neurologically awake, alert, Patient is mentally challenged. Able to move his extremities while in bed. Skin: No rash or skin lesions. Psychiatric: Coperative. Could not be assessed completely Musculoskeletal: No joint swelling or deformity. - Labs CBC & Chem 7: 10/12/19 15:32 10/12/19 15:32 Labs: Microbiology - Last 24 Hours (Table) 10/12/19 18:44 Blood Culture - Preliminary Blood No Growth after 96 hours Assessment and Plan Assessment: Failure to thrive with decreased oral intake Possible aspiration pneumonia with acute hypoxic respiratory failure Fecal impaction of colon Dehydration and volume depletion Recent right lower lobe pneumonia. Improving. Developmentally challenged Autism History of epilepsy Hypothyroidism DVT prophylaxis with heparin subcu. DNR/DNI Plan: Patient will be continued on gentle IV hydration and stool softeners and laxatives and suppositories were added. thin liquid diet as per speech/swallow evaluation. NPO now Continue with antibiotics the form of ceftriaxone and flagyl. Monitor fluid status. Continue with home medications Further recommendations based on the clinical course. Discussed with caregiver at bedside in detail. Time with Patient: Greater than 30
[2019-10-17] MEDS: metroNIDAZOLE-NS PMX 500 MG in SALINE 1 100ML.BAG IVPB SCH ×3 (03:33→21:28)
[2019-10-17] MEDS: SODIUM CHLORIDE 0.9% IVPB SCH ×4 (05:52→23:33)
[2019-10-17] MEDS: VALPROATE SODIUM IVPB SCH ×4 (05:52→23:33)
[2019-10-17] MEDS: OXCARBAZEPINE 600 MG PO SCH ×2 (05:53→17:44)
[2019-10-17] MEDS: LEVOTHYROXINE 25 MCG TAB PO SCH (05:53)
[2019-10-17] MEDS: BENZTROPINE MESYLATE 1 MG TAB PO SCH ×2 (05:53→21:29)
[2019-10-17 07:12] LABS: ABG PO2 53 mmHg (83-108)
[2019-10-17] MEDS: IPRATROPIUM-ALBUTEROL 3 ML NEB INHALATION SCH ×4 (08:36→21:45)
[2019-10-17] MEDS: HEPARIN SODIUM,PORCINE 5,000 UNIT/ML 1 ML VIAL SQ SCH ×3 (09:10→23:33)
--- NOTE | 2019-10-17 09:27 | P.PN ---
Subjective From records Patient is a 49-year-old male with a known history of developmentally challenged, autism and history of epilepsy who was recently discharged from the hospital on 10/02/2019, was treated for bacterial pneumonia, completed antibiotic course with Augmentin was brought to the hospital from [facility] home due to patient being more sleepy and falling and imbalance. Patient does have a legal guardian and called her PCP who recommended to go to ER. Patient has been having decreased oral intake and is more weak for the past few days. Patient is also having gurgling sounds on the lungs. Patient was also having decreased urinary output and also constipation. Patient did have a small bowel movement this morning otherwise. No complaints of vomiting. No fever no chills. Patient is nonverbal at baseline unable to provide any history. Most of the history was taken from the medical records and also caregiver/guardian at bedside. Vitals on admission blood pressure 137/93, pulse is 65 respiration 18 T-max 97.5 and pulse ox was 94% on room air Chest x-ray showed improving right-sided acute infiltrates. Suspect a retrocardiac acute infiltrate and atelectasis. Background lower lung volumes and cardiomegaly redemonstrated. KUB x-ray showed overall nonspecific but favored nonobstructive bowel gas pattern. Fairly moderate diffuse colonic fecal stasis noted. Laboratory data showed WBC 3.8, hemoglobin 13.2, platelets 219 Sodium 140 potassium 4.8 chloride 104, bicarb is 29, BUN 11 and creatinine 0.97 Liver enzymes are not elevated Magnesium 2.0 Lactic acid 1.4 Troponin x1- BNP 317 UA negative for infection 10/13/2019 Patient is currently lying in the bed but lethargic and confused. Able to open his eyes with verbal commands. Patient is being continued on IV fluids at 75 mL per hour which will be lower to 50 mL per hour. Currently saturating well on room air. Otherwise patient is not eating at all. Swallow study was ordered. Patient will be continued on stool softeners and laxatives. No diarrhea. no vomiting episodes. Complete review of systems could not be obtained from the patient. 10/14/2019 Patient is lethargic and confused. Not following verbal commands. Overnight patient became more short of breath. ABGs were done. Chest x-ray this morning showed probably some mild right lower lobe hilar infiltrate and there is same or increased compared to the morning. No heart failure is seen. Patient was given IV Lasix prior to chest x-ray. Pulmonary was consulted. Antibodies were added Flagyl along with ceftriaxone for possible aspiration. Speech and swallow evolution was done patient is only taking thickened liquids. Discussed with his sister/caregiver. Current CODE STATUS is DO NOT RESUSCITATE/DO NOT INTUBATE. Family is considering comfort care with the patient does not improve in the next 24-48 hours. 10/15/2019 Patient is nonverbal at baseline but opens eyes with verbal commands. Seems to be awake and alert. Patient was again short of breath this morning. IV fluids have been discontinued. Patient is also n.p.o. due to aspiration precautions. Patient was given another dose of Lasix. Chest x-ray showed marked worsening in the patient's right lower lung airspace disease. Otherwise patient is being continued on antibiotics in the form of ceftriaxone and Flagyl for possible aspiration pneumonia. Patient has been afebrile. 10/16/2019 Patient is nonverbal at baseline. Resting in the bed comfortably. Seems to be more awake and alert today. Currently maintaining oxygen saturations on room air. Remains on antibiotics in the form of ceftriaxone and Flagyl due to possible aspiration pneumonia. Patient had CT head and cervical spine was done showed no acute intracranial abnormality. No cervical fractures noted. There is cerebral atrophy. Moderate anterior hypertrophic spurring in the cervical spine. Subjective 10/17/2019 This is a pleasant 49 years old male with past medical history of developmental delay and autism and he has legal guardian. He was presented on 10/11, with confusion and aspiration pneumonia. Patient has currently on antibiotics with IV Flagyl and ceftriaxone. Patient himself is confused and cannot provide information. A does not follow most of the comments. However he does not look in distress. Patient is evaluated by pulmonary service and they recommended Dobbhoff/PEG tube for nutrition however as per my colleague Dr. whitlock's notes family/legal guardian are considering comfort care if no improvement in 24-48 hours Objective - Vital Signs Vital signs: Vital Signs Temp 98.2 F 10/17/19 07:00 Pulse 60 10/17/19 08:46 Resp 18 10/17/19 07:00 BP 162/85 10/17/19 07:00 Pulse Ox 92 L 10/17/19 07:00 Intake & Output 10/16/19 10/17/19 10/17/19 18:59 06:59 18:59 Intake Total 400 640 Output Total 1 Balance 400 639 Intake: IV 240 Sodium Chloride 0.9% 1, 240 000 ml @ 50 mls/hr IV . Q20H [facility] Rx#:[id number] Intake, IV Titration 400 400 Amount Valproate Sodium 625 mg 200 200 In Sodium Chloride 0.9% 100 ml @ 100 mls/hr IVPB Q6HR [facility] Rx#:[id number] cefTRIAXone 1 gm In 100 Sodium Chloride 0.9% 50 ml @ 100 mls/hr IVPB Q24HR [facility] Rx#:[id number] metroNIDAZOLE-NS PMX 500 100 200 mg In Saline 1 100ml.bag @ 100 mls/hr IVPB Q8H [facility] Rx#:[id number] Output: Urine 1 Other: Voiding Method Diaper Diaper # Voids 2 # Bowel Movements 2 - Exam -GENERAL: The patient is alert but confused, he is not answering questions or follow commands, not in any acute distress. Average pulled -HEENT: Pupils are round and equally reacting to light. EOMI. No scleral icterus. No conjunctival pallor. Normocephalic, atraumatic. No pharyngeal erythema. No thyromegaly. Left eye squint, he keeps turning his head to the right and left CARDIOVASCULAR: S1 and S2 present. No murmurs, rubs, or gallops. PULMONARY: Chest is clear to auscultation, no wheezing or crackles. ABDOMEN: Soft, nontender, nondistended, normoactive bowel sounds. No palpable organomegaly. MUSCULOSKELETAL: No joint swelling or deformity. EXTREMITIES: No cyanosis, clubbing, or pedal edema. NEUROLOGICAL: Gross neurological examination did not reveal any focal deficits. SKIN: No rashes. no petechiae. - Labs CBC & Chem 7: 10/12/19 15:32 10/12/19 15:32 Labs: Abnormal Lab Results - Last 24 Hours (Table) 10/14/19 Range/Units 00:00 ABG pO2 53 L* (83-108) mmHg Microbiology - Last 24 Hours (Table) 10/12/19 18:44 Blood Culture - Preliminary Blood No Growth after 96 hours Assessment and Plan Assessment: Failure to thrive with decreased oral intake Possible aspiration pneumonia with acute hypoxic respiratory failure Fecal impaction of colon Dehydration and volume depletion Recent right lower lobe pneumonia. Improving. Developmentally challenged Autism History of epilepsy Hypothyroidism DVT prophylaxis with heparin subcu. DNR/DNI Plan: This is a pleasant 1 years old male who presents with failure to thrive and aspiration pneumonia, his confusion does not follow commands. Pulmonary team recommended PEG tube placement. Her discharge, however her family/legal guardian are considering comfort care Labs and medication were reviewed.. Continue same treatment. Continue with symptomatic treatment. Resume home medication. Monitor lytes and vitals. DVT and GI prophylaxis. Further recommendations of the clinical course of the patient DVT prophylaxis: Subcutaneous heparin GI Prophylaxis: Pepcid Prognosis is guarded
[2019-10-17] MEDS: DEMECLOCYCLINE 150 MG TAB PO SCH ×3 (09:34→17:43)
[2019-10-17] MEDS: PSYLLIUM HUSK 100% 6 GM PACKET PO SCH (09:35)
[2019-10-17] MEDS: POLYETHYLENE GLYCOL 3350 17 GM POWD.PACK PO SCH (09:35)
[2019-10-17] MEDS: GABAPENTIN 300 MG CAP PO SCH ×4 (09:35→21:29)
[2019-10-17 11:21] LABS: African American GFR (CKD) >90 (>60 ml/min/1.73 sqM); Anion Gap 10 mmol/L; Blood Urea Nitrogen 24 mg/dL (9-20); Calcium 9.4 mg/dL (8.4-10.2); Carbon Dioxide 28 mmol/L (22-30); Chloride 109 mmol/L (98-107); Glucose 108 mg/dL (74-99); Non-African American GFR(CKD) >90 (>60 ml/min/1.73 sqM); Potassium 3.4 mmol/L (3.5-5.1); Sodium 147 mmol/L (137-145)
[2019-10-17 11:56] LABS: Basophils % (A) 0 %; Eosinophils # (A) 0.1 k/uL (0-0.7); Eosinophils % (A) 1 %; HCT 37.6 % (39.0-53.0); HGB 12.3 gm/dL (13.0-17.5); Lymphocytes # (A) 1.1 k/uL (1.0-4.8); Lymphocytes % (A) 14 %; MCH 29.4 pg (25.0-35.0); MCHC 32.8 g/dL (31.0-37.0); MCV 89.8 fL (80.0-100.0); Mean Platelet Volume 9.2; Monocytes # (A) 0.8 k/uL (0-1.0); Monocytes % (A) 10 %; Neutrophils # (A) 6.1 k/uL (1.3-7.7); Neutrophils % (A) 74 %; Platelet Count 205 k/uL (150-450); RBC 4.19 m/uL (4.30-5.90); RDW 13.8 % (11.5-15.5); WBC 8.3 k/uL (3.8-10.6)
[2019-10-17 12:30] LABS: Poikilocytosis (M) Present
--- NOTE | 2019-10-17 14:59 | P.PN ---
Subjective Progress Note Date: 10/17/19 The patient is seen today 10/16/2019. This is a 57-year-old gentleman with a history of autism. He had developed respiratory distress after episode of aspiration. He remains in aspiration precautions. Early this morning he was found on the floor. Computed tomography scan of the brain and C-spine revealed no acute intracranial abnormality. No cervical fractures noted. There is cerebral atrophy. Moderate anterior hypertrophic spurring in the cervical spine. Presently, he is resting in bed. Maintaining O2 saturations in the 90s on room air. He's afebrile. Hemodynamically stable. Blood culture revealing no growth. On 10/17/2019 patient seen in follow-up on general medical floor, she is resting comfortably in bed, he is nonverbal, he does not follow command, he does have underlying severe cognitive impairment related to autism. He's had no fever or chills, clinically appears to be stable, breathing is comfortable, room air pulse ox is 92%, afebrile. Hemodynamically stable, lung sounds reveal a few rhonchi bilaterally. Remains nothing by mouth for suspected aspiration related pneumonia, today's labs have been reviewed showing white blood cell count 8.3, hemoglobin of 12.3. Sodium is 147, potassium is 3.4, chloride is 109, CO2 is 28, BUN of 24 creatinine 0.82. His coronary virus PCR was negative. Urinalysis was clear. Patient has not been able to produce a sputum for culture, blood cultures have been negative. Antibiotic coverage includes ceftriaxone, and Flagyl. We recommended the PEG tube insertion, and apparently the guardian is considering comfort care, awaiting final decision. Objective - Vital Signs Vital signs: Vital Signs Temp 98.2 F 10/17/19 07:00 Pulse 60 10/17/19 12:40 Resp 18 10/17/19 07:00 BP 162/85 10/17/19 07:00 Pulse Ox 92 L 10/17/19 07:00 Intake & Output 10/16/19 10/17/19 10/17/19 18:59 06:59 18:59 Intake Total 400 640 Output Total 1 Balance 400 639 Intake: IV 240 Sodium Chloride 0.9% 1, 240 000 ml @ 50 mls/hr IV . Q20H [facility] Rx#:[id number] Intake, IV Titration 400 400 Amount Valproate Sodium 625 mg 200 200 In Sodium Chloride 0.9% 100 ml @ 100 mls/hr IVPB Q6HR [facility] Rx#:[id number] cefTRIAXone 1 gm In 100 Sodium Chloride 0.9% 50 ml @ 100 mls/hr IVPB Q24HR [facility] Rx#:[id number] metroNIDAZOLE-NS PMX 500 100 200 mg In Saline 1 100ml.bag @ 100 mls/hr IVPB Q8H [facility] Rx#:[id number] Output: Urine 1 Other: Voiding Method Diaper Diaper Diaper # Voids 2 1 # Bowel Movements 2 1 - Exam GENERAL EXAM: Alert, 49-year-old white male, on room air with a pulse ox of 92%, patient appears to have a chronic cognitive impairment comfortable in no apparent distress. HEAD: Normocephalic/atraumatic. EYES: Normal reaction of pupils, equal size. Conjunctiva pink, sclera white. NOSE: Clear with pink turbinates. THROAT: No erythema or exudates. NECK: No masses, no JVD, no thyroid enlargement, no adenopathy. CHEST: No chest wall deformity. Symmetrical expansion. LUNGS: Equal air entry with no crackles, wheeze, rhonchi or dullness. CVS: Regular rate and rhythm, normal S1 and S2, no gallops, no murmurs, no rubs ABDOMEN: Soft, nontender. No hepatosplenomegaly, normal bowel sounds, no guarding or rigidity. EXTREMITIES: No clubbing, no edema, no cyanosis, 2+ pulses and upper and lower extremities. MUSCULOSKELETAL: Muscle strength and tone normal. SPINE: No scoliosis or deformity SKIN: No rashes CENTRAL NERVOUS SYSTEM: Alert, unable to assess orientation patient is nonverbal. No focal deficits, tone is normal in all 4 extremities. - Labs CBC & Chem 7: 10/17/19 11:14 10/17/19 10:25 Labs: Abnormal Lab Results - Last 24 Hours (Table) 10/14/19 10/17/19 10/17/19 Range/Units 00:00 10:25 11:14 RBC 4.19 L (4.30-5.90) m/uL Hgb 12.3 L (13.0-17.5) gm/dL Hct 37.6 L (39.0-53.0) % ABG pO2 53 L* (83-108) mmHg Sodium 147 H (137-145) mmol/L Potassium 3.4 L (3.5-5.1) mmol/L Chloride 109 H (98-107) mmol/L BUN 24 H (9-20) mg/dL Glucose 108 H (74-99) mg/dL Microbiology - Last 24 Hours (Table) 10/12/19 18:44 Blood Culture - Preliminary Blood No Growth after 96 hours Assessment and Plan Plan: Assessment: #1. Acute aspiration of either liquid food, or medication, and acute hypoxic respiratory failure related to acute aspiration initially requiring BiPAP support, recovered, and is currently on room air #2. History of severe cognitive impairment related to history of autism #3. History of epilepsy #4. History of plica #5. Fecal impaction of: #6. History of hypothyroidism #7. Failure to thrive with decreased oral intake Plan: Continue current antibiotic coverage, patient is currently on room air, breathin g is comfortable, no acute distress, remains nothing by mouth and were awaiting final decision from patient's legal guardian in regards to PEG tube insertion. Continue IV fluids. We are informed by the nursing staff that the guardian may consider comfort care instead of PEG tube insertion, we'll continue supportive treatments, maintain aspiration precautions. I performed a history & physical examination of the patient and discussed their management with my nurse practitioner, Courtney Montoya. I reviewed the nurse practitioner's note and agree with the documented findings and plan of care. Lung sounds are positive for diffuse rhonchi. The findings and the impression was discussed with the patient. I attest to the documentation by the nurse practitioner. Time with Patient: Less than 30
[2019-10-17] MEDS: LORazepam 0.5 MG TAB PO SCH ×2 (16:33→21:29)
[2019-10-17] MEDS: FAMOTIDINE 20 MG/2 ML VIAL IV SCH (21:27)
[2019-10-17] MEDS: LORATADINE 10 MG TAB PO SCH (21:29)
[2019-10-17] MEDS: QUEtiapine 200 MG TAB PO SCH (21:29)
[2019-10-18] MEDS: metroNIDAZOLE-NS PMX 500 MG in SALINE 1 100ML.BAG IVPB SCH ×3 (03:26→20:22)
[2019-10-18 04:09] LABS: Glucose,Whole Blood 103 mg/dL (75-99)
[2019-10-18] MEDS: VALPROATE SODIUM IVPB SCH ×4 (05:09→23:33)
[2019-10-18] MEDS: SODIUM CHLORIDE 0.9% IVPB SCH ×4 (05:09→23:33)
[2019-10-18] MEDS: LEVOTHYROXINE 25 MCG TAB PO SCH (06:03)
[2019-10-18] MEDS: BENZTROPINE MESYLATE 1 MG TAB PO SCH ×2 (06:03→20:22)
[2019-10-18] MEDS: OXCARBAZEPINE 600 MG PO SCH ×2 (06:03→16:42)
[2019-10-18] MEDS: IPRATROPIUM-ALBUTEROL 3 ML NEB INHALATION SCH ×4 (07:26→20:27)
[2019-10-18] MEDS: HEPARIN SODIUM,PORCINE 5,000 UNIT/ML 1 ML VIAL SQ SCH ×3 (08:25→23:33)
[2019-10-18] MEDS: FAMOTIDINE 20 MG/2 ML VIAL IV SCH ×2 (08:25→21:31)
[2019-10-18] MEDS: DEMECLOCYCLINE 150 MG TAB PO SCH ×3 (08:37→17:34)
[2019-10-18] MEDS: GABAPENTIN 300 MG CAP PO SCH ×4 (08:37→21:32)
[2019-10-18] MEDS ORDERED: LORazepam 2 MG/ML INJ IV SCH (09:00)
[2019-10-18] MEDS: PSYLLIUM HUSK 100% 6 GM PACKET PO SCH (09:31)
[2019-10-18] MEDS: POLYETHYLENE GLYCOL 3350 17 GM POWD.PACK PO SCH (09:31)
--- NOTE | 2019-10-18 09:33 | P.PN ---
Subjective From records Patient is a 49-year-old male with a known history of developmentally challenged, autism and history of epilepsy who was recently discharged from the hospital on 10/02/2019, was treated for bacterial pneumonia, completed antibiotic course with Augmentin was brought to the hospital from [facility] home due to patient being more sleepy and falling and imbalance. Patient does have a legal guardian and called her PCP who recommended to go to ER. Patient has been having decreased oral intake and is more weak for the past few days. Patient is also having gurgling sounds on the lungs. Patient was also having decreased urinary output and also constipation. Patient did have a small bowel movement this morning otherwise. No complaints of vomiting. No fever no chills. Patient is nonverbal at baseline unable to provide any history. Most of the history was taken from the medical records and also caregiver/guardian at bedside. Vitals on admission blood pressure 137/93, pulse is 65 respiration 18 T-max 97.5 and pulse ox was 94% on room air Chest x-ray showed improving right-sided acute infiltrates. Suspect a retrocardiac acute infiltrate and atelectasis. Background lower lung volumes and cardiomegaly redemonstrated. KUB x-ray showed overall nonspecific but favored nonobstructive bowel gas pattern. Fairly moderate diffuse colonic fecal stasis noted. Laboratory data showed WBC 3.8, hemoglobin 13.2, platelets 219 Sodium 140 potassium 4.8 chloride 104, bicarb is 29, BUN 11 and creatinine 0.97 Liver enzymes are not elevated Magnesium 2.0 Lactic acid 1.4 Troponin x1- BNP 317 UA negative for infection 10/13/2019 Patient is currently lying in the bed but lethargic and confused. Able to open his eyes with verbal commands. Patient is being continued on IV fluids at 75 mL per hour which will be lower to 50 mL per hour. Currently saturating well on room air. Otherwise patient is not eating at all. Swallow study was ordered. Patient will be continued on stool softeners and laxatives. No diarrhea. no vomiting episodes. Complete review of systems could not be obtained from the patient. 10/14/2019 Patient is lethargic and confused. Not following verbal commands. Overnight patient became more short of breath. ABGs were done. Chest x-ray this morning showed probably some mild right lower lobe hilar infiltrate and there is same or increased compared to the morning. No heart failure is seen. Patient was given IV Lasix prior to chest x-ray. Pulmonary was consulted. Antibodies were added Flagyl along with ceftriaxone for possible aspiration. Speech and swallow evolution was done patient is only taking thickened liquids. Discussed with his sister/caregiver. Current CODE STATUS is DO NOT RESUSCITATE/DO NOT INTUBATE. Family is considering comfort care with the patient does not improve in the next 24-48 hours. 10/15/2019 Patient is nonverbal at baseline but opens eyes with verbal commands. Seems to be awake and alert. Patient was again short of breath this morning. IV fluids have been discontinued. Patient is also n.p.o. due to aspiration precautions. Patient was given another dose of Lasix. Chest x-ray showed marked worsening in the patient's right lower lung airspace disease. Otherwise patient is being continued on antibiotics in the form of ceftriaxone and Flagyl for possible aspiration pneumonia. Patient has been afebrile. 10/16/2019 Patient is nonverbal at baseline. Resting in the bed comfortably. Seems to be more awake and alert today. Currently maintaining oxygen saturations on room air. Remains on antibiotics in the form of ceftriaxone and Flagyl due to possible aspiration pneumonia. Patient had CT head and cervical spine was done showed no acute intracranial abnormality. No cervical fractures noted. There is cerebral atrophy. Moderate anterior hypertrophic spurring in the cervical spine. Subjective 10/17/2019 This is a pleasant 49 years old male with past medical history of developmental delay and autism and he has legal guardian. He was presented on 10/11, with confusion and aspiration pneumonia. Patient has currently on antibiotics with IV Flagyl and ceftriaxone. Patient himself is confused and cannot provide information. A does not follow most of the comments. However he does not look in distress. Patient is evaluated by pulmonary service and they recommended Dobbhoff/PEG tube for nutrition however as per my colleague Dr. whitlock's notes family/legal guardian are considering comfort care if no improvement in 24-48 hours 10/18/2019 Patient remains confused although he is awake and looking at team, he does not follow command. His nonverbal at baseline. Last night he developed a seizure, patient was not taking his oral Ativan because his nothing by mouth, Ativan was restarted as intravenously. No more seizure I discussed with the bedside nurse, looks like the guardian wanted patient to be no code, however records from her she cannot do that, however the guardian told me she still wants patient no code and she's petitioned the court because she thinks he got a PEG tube based on the recommendation of the speech therapist, this speech therapist thinks that patient might pull out his PEG tube due to his impulsivity And mental challenges and instead put him on a pured diet, explain ed to the guardian that he might try to place PEG tube and keep it away from his reach and at the same time he can still have pured diet, she is going to discussed with his brother as coguardian and that the medical team knows about her decision whether to place PEG tube Case was discussed with the bedside nurse, speech therapist and medical guardian Piper Azar at [phone] Review of systems:n/a Active Medications Generic Name Dose Route Start Last Admin Trade Name Freq PRN Reason Stop Dose Admin Albuterol/Ipratropium 3 ml 10/15/19 09:11 10/18/19 07:26 Duoneb 0.5 Mg-3 Mg/3 Ml Soln INHALATION 3 ml RT-QID [facility] Administration Benztropine Mesylate 1 mg 10/12/19 20:00 10/18/19 06:03 Cogentin PO Not Given BID@0600,2000 [facility] Bisacodyl 10 mg 10/12/19 17:47 Dulcolax RECTAL Q72H PRN Constipation Demeclocycline HCl 300 mg 10/12/19 18:30 10/18/19 08:37 Declomycin PO 300 mg PC-TID [facility] Administration Docusate Sodium 100 mg 10/12/19 17:47 Colace PO BID PRN Constipation Famotidine 20 mg 10/17/19 21:00 10/18/19 08:25 Pepcid IV 20 mg Q12HR [facility] Administration Flumazenil 0.2 mg 10/13/19 23:22 Romazicon IVP ONCE PRN benzodiazepime reversal Gabapentin 300 mg 10/12/19 18:00 10/18/19 08:37 Neurontin PO 300 mg QID [facility] Administration Heparin Sodium (Porcine) 5,000 unit 10/13/19 00:00 10/18/19 08:25 Heparin SQ 5,000 unit Q8HR [facility] Administration Valproic Acid 625 mg/ Sodium 106.25 mls @ 100 mls/hr 10/14/19:00 10/18/19 05:09 Chloride IVPB 100 mls/hr Q6HR [facility] Administration Metronidazole 500 mg/ IV 100 mls @ 100 mls/hr 10/15/19 12:00 10/18/19 03:26 Solution IVPB 100 mls/hr Q8H [facility] Administration Ceftriaxone Sodium 1 gm/ 50 mls @ 100 mls/hr 10/15/19 10:15 10/18/19 08:25 Sodium Chloride IVPB 100 mls/hr Q24HR [facility] Administration Dextrose/Sodium Chloride 1,000 mls @ 75 mls/hr 10/18/19 09:30 Dextrose 5%-1/2ns Iv Soln IV .[id number] [facility] Levothyroxine Sodium 25 mcg 10/13/19 06:00 10/18/19 06:03 Synthroid PO Not Given DAILY@0600 [facility] Loratadine 10 mg 10/12/19 22:00 10/17/19 21:29 Claritin PO 10 mg HS@2200 [facility] Administration Lorazepam 1 mg 10/12/19 17:47 Ativan PO DAILY PRN Seizures Lorazepam 0.5 mg 10/18/19 09:00 Ativan IV BID [facility] Miscellaneous Information 1 each 10/12/19 17:45 Pneumonia Protocol Utilized PO ONCE PRN Per Protocol Non-Formulary Medication 600 mg 10/12/19 18:00 10/18/19 06:03 Oxcarbazepine [Oxtellar Xr] PO Not Given BID@0600,1800 [facility] Polyethylene Glycol 17 gm 10/13/19 16:00 10/18/19 09:31 Miralax PO Not Given DAILY [facility] Psyllium Hydrophilic Mucilloid 6 gm 10/13/19 09:00 10/18/19 09:31 Metamucil PO Not Given DAILY [facility] Quetiapine Fumarate 200 mg 10/12/19 20:00 10/17/19 21:29 Seroquel PO 200 mg HS@2000 [facility] Administration Objective - Vital Signs Vital signs: Vital Signs Temp 98 F 10/18/19 07:00 Pulse 72 10/18/19 07:39 Resp 18 10/18/19 07:00 BP 145/91 10/18/19 07:00 Pulse Ox 95 10/18/19 07:00 Intake & Output 10/17/19 10/18/19 10/18/19 18:59 06:59 18:59 Intake Total 110 Output Total 1901 Balance 110 -1901 Intake: Oral 110 Output: Urine 1901 Straight 600 Other: Voiding Method Diaper Diaper # Voids 2 1 # Bowel Movements 1 1 - Exam -GENERAL: The patient is alert but confused, he is not answering questions or follow commands, not in any acute distress. Average pulled -HEENT: Pupils are round and equally reacting to light. EOMI. No scleral icterus. No conjunctival pallor. Normocephalic, atraumatic. No pharyngeal erythema. No thyromegaly. Left eye squint, he keeps turning his head to the right and left CARDIOVASCULAR: S1 and S2 present. No murmurs, rubs, or gallops. PULMONARY: Chest is clear to auscultation, no wheezing or crackles. ABDOMEN: Soft, nontender, nondistended, normoactive bowel sounds. No palpable organomegaly. MUSCULOSKELETAL: No joint swelling or deformity. EXTREMITIES: No cyanosis, clubbing, or pedal edema. NEUROLOGICAL: Gross neurological examination did not reveal any focal deficits. SKIN: No rashes. no petechiae. - Labs CBC & Chem 7: 10/17/19 11:14 10/17/19 10:25 Labs: Abnormal Lab Results - Last 24 Hours (Table) 10/17/19 10/17/19 10/18/19 Range/Units 10:25 11:14 04:01 RBC 4.19 L (4.30-5.90) m/uL Hgb 12.3 L (13.0-17.5) gm/dL Hct 37.6 L (39.0-53.0) % Sodium 147 H (137-145) mmol/L Potassium 3.4 L (3.5-5.1) mmol/L Chloride 109 H (98-107) mmol/L BUN 24 H (9-20) mg/dL Glucose 108 H (74-99) mg/dL POC Glucose (mg/dL) 103 H (75-99) mg/dL Microbiology - Last 24 Hours (Table) 10/12/19 18:44 Blood Culture - Preliminary Blood No Growth after 120 hours Assessment and Plan Assessment: Failure to thrive with decreased oral intake Possible aspiration pneumonia with acute hypoxic respiratory failure Fecal impaction of colon Dehydration and volume depletion Recent right lower lobe pneumonia. Improving. Developmentally challenged Autism History of epilepsy Hypothyroidism DVT prophylaxis with heparin subcu. DNR/DNI Plan: This is a pleasant 1 years old male who presents with failure to thrive and aspiration pneumonia, his confusion does not follow commands. Pulmonary team recommended PEG tube placement. however his family/legal guardian are deciding about placement of PEG tube and rule out the medical team Labs and medication were reviewed.. Continue same treatment. Continue with symptomatic treatment. Resume home medication. Monitor lytes and vitals. DVT and GI prophylaxis. Further recommendations of the clinical course of the patient DVT prophylaxis: Subcutaneous heparin GI Prophylaxis: Pepcid Prognosis is guarded
[2019-10-18] MEDS: DEXTROSE 5%-0.45% NACL 1,000 ML IV SCH (10:11)
[2019-10-18 10:50] LABS: African American GFR (CKD) >90 (>60 ml/min/1.73 sqM); Anion Gap 10 mmol/L; Blood Urea Nitrogen 23 mg/dL (9-20); Calcium 9.1 mg/dL (8.4-10.2); Carbon Dioxide 27 mmol/L (22-30); Chloride 113 mmol/L (98-107); Glucose 157 mg/dL (74-99); Non-African American GFR(CKD) >90 (>60 ml/min/1.73 sqM); Potassium 2.9 mmol/L (3.5-5.1); Sodium 150 mmol/L (137-145)
--- NOTE | 2019-10-18 11:43 | P.PN ---
Subjective Progress Note Date: 10/18/19 The patient is seen today 10/16/2019. This is a 57-year-old gentleman with a history of autism. He had developed respiratory distress after episode of aspiration. He remains in aspiration precautions. Early this morning he was found on the floor. Computed tomography scan of the brain and C-spine revealed no acute intracranial abnormality. No cervical fractures noted. There is cerebral atrophy. Moderate anterior hypertrophic spurring in the cervical spine. Presently, he is resting in bed. Maintaining O2 saturations in the 90s on room air. He's afebrile. Hemodynamically stable. Blood culture revealing no growth. On 10/17/2019 patient seen in follow-up on [facility] floor, she is resting comfortably in bed, he is nonverbal, he does not follow command, he does have underlying severe cognitive impairment related to autism. He's had no fever or chills, clinically appears to be stable, breathing is comfortable, room air pulse ox is 92%, afebrile. Hemodynamically stable, lung sounds reveal a few rhonchi bilaterally. Remains nothing by mouth for suspected aspiration related pneumonia, today's labs have been reviewed showing white blood cell count 8.3, hemoglobin of 12.3. Sodium is 147, potassium is 3.4, chloride is 109, CO2 is 28, BUN of 24 creatinine 0.82. His coronary virus PCR was negative. Urinalysis was clear. Patient has not been able to produce a sputum for culture, blood cultures have been negative. Antibiotic coverage includes ceftriaxone, and Flagyl. We recommended the PEG tube insertion, and apparently the guardian is considering comfort care, awaiting final decision. On 10/18/2019 patient seen in follow-up on the [facility] medical floor, he is calm and comfortable, awake and alert, room air pulse ox is 95%, he is afebrile, occasional cough, nonproductive. Lung sounds reveal some scattered rhonchi, good air entry noted bilaterally, apparently per nursing report patient had passed swallowing evaluation and he has been taking in some pudding. Speech therapy recommended pured diet with non-thickened liquids, strict aspiration precautions Objective - Vital Signs Vital signs: Vital Signs Temp 98 F 10/18/19 07:00 Pulse 72 10/18/19 07:39 Resp 18 10/18/19 07:00 BP 145/91 10/18/19 07:00 Pulse Ox 95 10/18/19 07:00 Intake & Output 10/17/19 10/18/19 10/18/19 18:59 06:59 18:59 Intake Total 110 Output Total 1901 Balance 110 -1901 Intake: Oral 110 Output: Urine 1901 Straight 600 Other: Voiding Method Diaper Diaper Diaper # Voids 2 1 # Bowel Movements 1 1 - Exam GENERAL EXAM: Alert, 49-year-old white male, on room air with a pulse ox of 92%, patient appears to have a chronic cognitive impairment comfortable in no apparent distress. HEAD: Normocephalic/atraumatic. EYES: Normal reaction of pupils, equal size. Conjunctiva pink, sclera white. NOSE: Clear with pink turbinates. THROAT: No erythema or exudates. NECK: No masses, no JVD, no thyroid enlargement, no adenopathy. CHEST: No chest wall deformity. Symmetrical expansion. LUNGS: Equal air entry with no crackles, wheeze, rhonchi or dullness. CVS: Regular rate and rhythm, normal S1 and S2, no gallops, no murmurs, no rubs ABDOMEN: Soft, nontender. No hepatosplenomegaly, normal bowel sounds, no guarding or rigidity. EXTREMITIES: No clubbing, no edema, no cyanosis, 2+ pulses and upper and lower extremities. MUSCULOSKELETAL: Muscle strength and tone normal. SPINE: No scoliosis or deformity SKIN: No rashes CENTRAL NERVOUS SYSTEM: Alert, unable to assess orientation patient is nonverbal. No focal deficits, tone is normal in all 4 extremities. - Labs CBC & Chem 7: 10/17/19 11:14 10/18/19 10:09 Labs: Abnormal Lab Results - Last 24 Hours (Table) 10/17/19 10/18/19 10/18/19 Range/Units 11:14 04:01 10:09 RBC 4.19 L (4.30-5.90) m/uL Hgb 12.3 L (13.0-17.5) gm/dL Hct 37.6 L (39.0-53.0) % Sodium 150 H (137-145) mmol/L Potassium 2.9 L (3.5-5.1) mmol/L Chloride 113 H (98-107) mmol/L BUN 23 H (9-20) mg/dL Glucose 157 H (74-99) mg/dL POC Glucose (mg/dL) 103 H (75-99) mg/dL Microbiology - Last 24 Hours (Table) 10/12/19 18:44 Blood Culture - Preliminary Blood No Growth after 120 hours Assessment and Plan Plan: Assessment: #1. Acute aspiration of either liquid food, or medication, and acute hypoxic respiratory failure related to acute aspiration initially requiring BiPAP support, recovered, and is currently on room air #2. History of severe cognitive impairment related to history of autism #3. History of epilepsy #4. History of plica #5. Fecal impaction of: #6. History of hypothyroidism #7. Failure to thrive with decreased oral intake Plan: Continue current medical coverage, patient is stable from pulmonary perspective, apparently he passed swallow evaluation with instructions for strict aspiration precautions, pured diet with thickened liquids and one-to-one supervision with no straws. he is tolerating oral intake well, he is on room air, no fever or chills. He remains on D5W at a rate 75 ML per hour. Maintain aspiration precautions. Recheck labs tomorrow. I performed a history & physical examination of the patient and discussed their management with my nurse practitioner, Courtney Montoya. I reviewed the nurse practitioner's note and agree with the documented findings and plan of care. Lung sounds are positive for diffuse rhonchi. The findings and the impression was discussed with the patient. I attest to the documentation by the nurse practitioner. Time with Patient: Less than 30
[2019-10-18 13:44] VITALS: BMI 21.2
[2019-10-18] MEDS: LORazepam 2 MG/ML INJ IV SCH ×2 (15:32→21:32)
[2019-10-18] MEDS ORDERED: Magnesium Replacement Protocol 1 EACH MISC MISCELLANE PRN (19:37)
[2019-10-18] MEDS ORDERED: Potassium Replacement Protocol 1 EACH MISC MISCELLANE PRN (19:37)
[2019-10-18] MEDS: QUEtiapine 200 MG TAB PO SCH (20:22)
[2019-10-18] MEDS: LORATADINE 10 MG TAB PO SCH (21:32)
[2019-10-19] MEDS: DEXTROSE 5%-0.45% NACL 1,000 ML IV SCH (02:32)
[2019-10-19] MEDS: metroNIDAZOLE-NS PMX 500 MG in SALINE 1 100ML.BAG IVPB SCH ×3 (04:45→22:00)
[2019-10-19] MEDS: BENZTROPINE MESYLATE 1 MG TAB PO SCH ×2 (05:44→21:52)
[2019-10-19] MEDS: OXCARBAZEPINE 600 MG PO SCH ×2 (05:44→17:13)
[2019-10-19] MEDS: VALPROATE SODIUM IVPB SCH ×3 (05:44→17:15)
[2019-10-19] MEDS: SODIUM CHLORIDE 0.9% IVPB SCH ×3 (05:44→17:15)
[2019-10-19] MEDS: LEVOTHYROXINE 25 MCG TAB PO SCH (05:44)
[2019-10-19] MEDS: HEPARIN SODIUM,PORCINE 5,000 UNIT/ML 1 ML VIAL SQ SCH ×3 (08:58→23:06)
[2019-10-19] MEDS: FAMOTIDINE 20 MG/2 ML VIAL IV SCH ×2 (08:58→21:54)
[2019-10-19] MEDS: GABAPENTIN 300 MG CAP PO SCH ×4 (08:58→21:52)
[2019-10-19] MEDS: PSYLLIUM HUSK 100% 6 GM PACKET PO SCH (08:58)
[2019-10-19] MEDS: POLYETHYLENE GLYCOL 3350 17 GM POWD.PACK PO SCH (08:58)
[2019-10-19] MEDS: DEMECLOCYCLINE 150 MG TAB PO SCH (09:01)
[2019-10-19] MEDS: IPRATROPIUM-ALBUTEROL 3 ML NEB INHALATION SCH ×4 (09:07→20:27)
[2019-10-19] MEDS ORDERED: DEXTROSE 5% IN WATER 1,000 ML IV ONE (09:59)
[2019-10-19] MEDS ORDERED: POTASSIUM CHLORIDE 40 MEQ in WATER FOR INJECTION 1 100ML.BAG IVPB STA (10:00)
[2019-10-19] MEDS: POTASSIUM CHLORIDE 20 MEQ in WATER FOR INJECTION 1 100ML.BAG IVPB SCH ×2 (10:40→12:20)
[2019-10-19 10:48] LABS: African American GFR (CKD) >90 (>60 ml/min/1.73 sqM); Anion Gap 9 mmol/L; Blood Urea Nitrogen 13 mg/dL (9-20); Carbon Dioxide 26 mmol/L (22-30); Chloride 111 mmol/L (98-107); Glucose 151 mg/dL (74-99); Magnesium 1.9 mg/dL (1.6-2.3); Non-African American GFR(CKD) >90 (>60 ml/min/1.73 sqM); Potassium 2.9 mmol/L (3.5-5.1); Sodium 146 mmol/L (137-145)
[2019-10-19] MEDS ORDERED: MAGNESIUM SULFATE-D5W PMX 1 GM in DEXTROSE/WATER 1 100ML.BAG IVPB ONE (11:22)
--- NOTE | 2019-10-19 11:50 | P.PN ---
Subjective From records Patient is a 49-year-old male with a known history of developmentally challenged, autism and history of epilepsy who was recently discharged from the hospital on 10/02/2019, was treated for bacterial pneumonia, completed antibiotic course with Augmentin was brought to the hospital from [facility] home due to patient being more sleepy and falling and imbalance. Patient does have a legal guardian and called her PCP who recommended to go to ER. Patient has been having decreased oral intake and is more weak for the past few days. Patient is also having gurgling sounds on the lungs. Patient was also having decreased urinary output and also constipation. Patient did have a small bowel movement this morning otherwise. No complaints of vomiting. No fever no chills. Patient is nonverbal at baseline unable to provide any history. Most of the history was taken from the medical records and also caregiver/guardian at bedside. Vitals on admission blood pressure 137/93, pulse is 65 respiration 18 T-max 97.5 and pulse ox was 94% on room air Chest x-ray showed improving right-sided acute infiltrates. Suspect a retrocardiac acute infiltrate and atelectasis. Background lower lung volumes and cardiomegaly redemonstrated. KUB x-ray showed overall nonspecific but favored nonobstructive bowel gas pattern. Fairly moderate diffuse colonic fecal stasis noted. Laboratory data showed WBC 3.8, hemoglobin 13.2, platelets 219 Sodium 140 potassium 4.8 chloride 104, bicarb is 29, BUN 11 and creatinine 0.97 Liver enzymes are not elevated Magnesium 2.0 Lactic acid 1.4 Troponin x1- BNP 317 UA negative for infection 10/13/2019 Patient is currently lying in the bed but lethargic and confused. Able to open his eyes with verbal commands. Patient is being continued on IV fluids at 75 mL per hour which will be lower to 50 mL per hour. Currently saturating well on room air. Otherwise patient is not eating at all. Swallow study was ordered. Patient will be continued on stool softeners and laxatives. No diarrhea. no vomiting episodes. Complete review of systems could not be obtained from the patient. 10/14/2019 Patient is lethargic and confused. Not following verbal commands. Overnight patient became more short of breath. ABGs were done. Chest x-ray this morning showed probably some mild right lower lobe hilar infiltrate and there is same or increased compared to the morning. No heart failure is seen. Patient was given IV Lasix prior to chest x-ray. Pulmonary was consulted. Antibodies were added Flagyl along with ceftriaxone for possible aspiration. Speech and swallow evolution was done patient is only taking thickened liquids. Discussed with his sister/caregiver. Current CODE STATUS is DO NOT RESUSCITATE/DO NOT INTUBATE. Family is considering comfort care with the patient does not improve in the next 24-48 hours. 10/15/2019 Patient is nonverbal at baseline but opens eyes with verbal commands. Seems to be awake and alert. Patient was again short of breath this morning. IV fluids have been discontinued. Patient is also n.p.o. due to aspiration precautions. Patient was given another dose of Lasix. Chest x-ray showed marked worsening in the patient's right lower lung airspace disease. Otherwise patient is being continued on antibiotics in the form of ceftriaxone and Flagyl for possible aspiration pneumonia. Patient has been afebrile. 10/16/2019 Patient is nonverbal at baseline. Resting in the bed comfortably. Seems to be more awake and alert today. Currently maintaining oxygen saturations on room air. Remains on antibiotics in the form of ceftriaxone and Flagyl due to possible aspiration pneumonia. Patient had CT head and cervical spine was done showed no acute intracranial abnormality. No cervical fractures noted. There is cerebral atrophy. Moderate anterior hypertrophic spurring in the cervical spine. Subjective 10/17/2019 This is a pleasant 49 years old male with past medical history of developmental delay and autism and he has legal guardian. He was presented on 10/11, with confusion and aspiration pneumonia. Patient has currently on antibiotics with IV Flagyl and ceftriaxone. Patient himself is confused and cannot provide information. A does not follow most of the comments. However he does not look in distress. Patient is evaluated by pulmonary service and they recommended Dobbhoff/PEG tube for nutrition however as per my colleague Dr. whitlock's notes family/legal guardian are considering comfort care if no improvement in 24-48 hours 10/18/2019 Patient remains confused although he is awake and looking at team, he does not follow command. His nonverbal at baseline. Last night he developed a seizure, patient was not taking his oral Ativan because his nothing by mouth, Ativan was restarted as intravenously. No more seizure I discussed with the bedside nurse, looks like the guardian wanted patient to be no code, however records from her she cannot do that, however the guardian told me she still wants patient no code and she's petitioned the court because she thinks he got a PEG tube based on the recommendation of the speech therapist, this speech therapist thinks that patient might pull out his PEG tube due to his impulsivity And mental challenges and instead put him on a pured diet, explain ed to the guardian that he might try to place PEG tube and keep it away from his reach and at the same time he can still have pured diet, she is going to discussed with his brother as coguardian and that the medical team knows about her decision whether to place PEG tube Case was discussed with the bedside nurse, speech therapist and medical guardian Piper Askew at [phone] 10/19/2019 Patient is nonverbal at baseline. His more awake and alert today. Sodium skin down to 146, her metastases on D5W. Low potassium 2.9 and borderline magnesium is been replaced. Patient is tolerating diet, modified with [facility]. Most likely patient will not need PEG tube but we will keep monitoring. Pulmonary input is appreciated Possible discharge in 24-48 hours if keep improvement Review of systems:n/a Objective - Vital Signs Vital signs: Vital Signs Temp 97.7 F 10/19/19 07:20 Pulse 60 10/19/19 09:18 Resp 18 10/19/19 07:20 BP 153/88 10/19/19 07:20 Pulse Ox 93 L 10/19/19 07:20 Intake & Output 10/18/19 10/19/19 10/19/19 18:59 06:59 18:59 Intake Total 200 225 Output Total 950 Balance 200 -725 Weight 63.503 kg Intake: Intake, IV Titration 225 Amount Dextrose 5%-0.45% NaCl 1, 125 000 ml @ 75 mls/hr IV . [id number] [facility] Rx#:[id number] Valproate Sodium 625 mg 100 In Sodium Chloride 0.9% 100 ml @ 100 mls/hr IVPB Q6HR [facility] Rx#:[id number] Oral 200 Output: Urine 950 Straight 950 Other: Voiding Method Diaper Diaper # Voids 1 1 # Bowel Movements 1 - Exam -GENERAL: The patient is alert but confused, he is not answering questions or follow commands, not in any acute distress. Average pulled -HEENT: Pupils are round and equally reacting to light. EOMI. No scleral icterus. No conjunctival pallor. Normocephalic, atraumatic. No pharyngeal erythema. No thyromegaly. Left eye squint, he keeps turning his head to the right and left CARDIOVASCULAR: S1 and S2 present. No murmurs, rubs, or gallops. PULMONARY: Chest is clear to auscultation, no wheezing or crackles. ABDOMEN: Soft, nontender, nondistended, normoactive bowel sounds. No palpable organomegaly. MUSCULOSKELETAL: No joint swelling or deformity. EXTREMITIES: No cyanosis, clubbing, or pedal edema. NEUROLOGICAL: Gross neurological examination did not reveal any focal deficits. SKIN: No rashes. no petechiae. - Labs CBC & Chem 7: 10/17/19 11:14 10/19/19 10:10 Labs: Abnormal Lab Results - Last 24 Hours (Table) 10/19/19 Range/Units 10:10 Sodium 146 H (137-145) mmol/L Potassium 2.9 L (3.5-5.1) mmol/L Chloride 111 H (98-107) mmol/L Glucose 151 H (74-99) mg/dL Microbiology - Last 24 Hours (Table) 10/12/19 18:44 Blood Culture - Final Blood No Growth after 144 hours Assessment and Plan Assessment: Failure to thrive with decreased oral intake Possible aspiration pneumonia with acute hypoxic respiratory failure Fecal impaction of colon Dehydration and volume depletion Recent right lower lobe pneumonia. Improving. Developmentally challenged Autism History of epilepsy Hypothyroidism DVT prophylaxis with heparin subcu. DNR/DNI Plan: This is a pleasant 1 years old male who presents with failure to thrive and aspiration pneumonia, his confusion does not follow commands. Pulmonary team recommended PEG tube placement. however his family/legal guardian are deciding about placement of PEG tube and rule out the medical team Labs and medication were reviewed.. Continue same treatment. Continue with symptomatic treatment. Resume home medication. Monitor lytes and vitals. DVT and GI prophylaxis. Further recommendations of the clinical course of the patient DVT prophylaxis: Subcutaneous heparin GI Prophylaxis: Pepcid Prognosis is guarded
--- NOTE | 2019-10-19 12:11 | P.PN ---
Subjective Progress Note Date: 10/19/19 The patient is seen today 10/16/2019. This is a 57-year-old gentleman with a history of autism. He had developed respiratory distress after episode of aspiration. He remains in aspiration precautions. Early this morning he was found on the floor. Computed tomography scan of the brain and C-spine revealed no acute intracranial abnormality. No cervical fractures noted. There is cerebral atrophy. Moderate anterior hypertrophic spurring in the cervical spine. Presently, he is resting in bed. Maintaining O2 saturations in the 90s on room air. He's afebrile. Hemodynamically stable. Blood culture revealing no growth. On 10/17/2019 patient seen in follow-up on [facility] floor, she is resting comfortably in bed, he is nonverbal, he does not follow command, he does have underlying severe cognitive impairment related to autism. He's had no fever or chills, clinically appears to be stable, breathing is comfortable, room air pulse ox is 92%, afebrile. Hemodynamically stable, lung sounds reveal a few rhonchi bilaterally. Remains nothing by mouth for suspected aspiration related pneumonia, today's labs have been reviewed showing white blood cell count 8.3, hemoglobin of 12.3. Sodium is 147, potassium is 3.4, chloride is 109, CO2 is 28, BUN of 24 creatinine 0.82. His coronary virus PCR was negative. Urinalysis was clear. Patient has not been able to produce a sputum for culture, blood cultures have been negative. Antibiotic coverage includes ceftriaxone, and Flagyl. We recommended the PEG tube insertion, and apparently the guardian is considering comfort care, awaiting final decision. On 10/18/2019 patient seen in follow-up on the [facility] floor, he is calm and comfortable, awake and alert, room air pulse ox is 95%, he is afebrile, occasional cough, nonproductive. Lung sounds reveal some scattered rhonchi, good air entry noted bilaterally, apparently per nursing report patient had passed swallowing evaluation and he has been taking in some pudding. Speech therapy recommended pured diet with non-thickened liquids, strict aspiration precautions On 10/19/2019 patient seen in follow[facility] on [facility]. He is calm and comfortable, appears to be in no acute distress, no signs of any respiratory difficulty, room air pulse ox is 93%, afebrile, hemodynamically patient is stable, he is awake and alert. Lung sounds reveal a few scattered rhonchi. Patient is on a modified diet with nectar thick liquids and according to the nursing staff has been tolerating oral intake well. Today's labs have been reviewed and his sodium is down to 146, however potassium is still low at 2.9, BUN is 13 creatinine 0.91. His current IV fluids are D5 0.9 at a rate of 75, we'll switch to D5 W at a rate of 100 ML per hour, encourage oral intake. No diarrhea. Patient is incontinent of bladder. Current antibiotic coverage includes Rocephin. Blood culture is negative. Vital signs are stable. Objective - Vital Signs Vital signs: Vital Signs Temp 97.7 F 10/19/19 07:20 Pulse 60 10/19/19 09:18 Resp 18 10/19/19 07:20 BP 153/88 10/19/19 07:20 Pulse Ox 93 L 10/19/19 07:20 Intake & Output 10/18/19 10/19/19 10/19/19 18:59 06:59 18:59 Intake Total 200 225 Output Total 950 Balance 200 -725 Weight 63.503 kg Intake: Intake, IV Titration 225 Amount Dextrose 5%-0.45% NaCl 1, 125 000 ml @ 75 mls/hr IV . [id number] [facility] Rx#:[id number] Valproate Sodium 625 mg 100 In Sodium Chloride 0.9% 100 ml @ 100 mls/hr IVPB Q6HR [facility] Rx#:[id number] Oral 200 Output: Urine 950 Straight 950 Other: Voiding Method Diaper Diaper # Voids 1 1 # Bowel Movements 1 - Exam GENERAL EXAM: Alert, 49-year-old white male, on room air with a pulse ox of 92%, patient appears to have a chronic cognitive impairment comfortable in no apparent distress. HEAD: Normocephalic/atraumatic. EYES: Normal reaction of pupils, equal size. Conjunctiva pink, sclera white. NOSE: Clear with pink turbinates. THROAT: No erythema or exudates. NECK: No masses, no JVD, no thyroid enlargement, no adenopathy. CHEST: No chest wall deformity. Symmetrical expansion. LUNGS: Equal air entry with no crackles, wheeze, rhonchi or dullness. CVS: Regular rate and rhythm, normal S1 and S2, no gallops, no murmurs, no rubs ABDOMEN: Soft, nontender. No hepatosplenomegaly, normal bowel sounds, no guarding or rigidity. EXTREMITIES: No clubbing, no edema, no cyanosis, 2+ pulses and upper and lower extremities. MUSCULOSKELETAL: Muscle strength and tone normal. SPINE: No scoliosis or deformity SKIN: No rashes CENTRAL NERVOUS SYSTEM: Alert, unable to assess orientation patient is nonverbal. No focal deficits, tone is normal in all 4 extremities. - Labs CBC & Chem 7: 10/17/19 11:14 10/19/19 10:10 Labs: Abnormal Lab Results - Last 24 Hours (Table) 10/19/19 Range/Units 10:10 Sodium 146 H (137-145) mmol/L Potassium 2.9 L (3.5-5.1) mmol/L Chloride 111 H (98-107) mmol/L Glucose 151 H (74-99) mg/dL Microbiology - Last 24 Hours (Table) 10/12/19 18:44 Blood Culture - Final Blood No Growth after 144 hours Assessment and Plan Plan: Assessment: #1. Acute aspiration of either liquid food, or medication, and acute hypoxic respiratory failure related to acute aspiration initially requiring BiPAP support, recovered, and is currently on room air #2. History of severe cognitive impairment related to history of autism #3. History of epilepsy #4. History of pica #5. Fecal impaction #6. History of hypothyroidism #7. Failure to thrive with decreased oral intake #8. Hyponatremia related to free water deficit, improving with D5W IV fluid infusion Plan: Patient is clinically stable, he is on room air, breathing is comfortable, no fever or chills, continue current antibiotic coverage, maintain aspiration precautions, switch IV fluids to D5W at a rate of 100 ML per hour, encourage oral intake, patient is on modified diet with nectar thick liquids, we will stop the demeclocycline. Recheck labs in the morning I performed a history & physical examination of the patient and discussed their management with my nurse practitioner, Courtney Montoya. I reviewed the nurse practitioner's note and agree with the documented findings and plan of care. Lung sounds are positive for diffuse rhonchi. The findings and the impression was discussed with the patient. I attest to the documentation by the nurse practitioner. Time with Patient: Less than 30
[2019-10-19] MEDS: LORazepam 2 MG/ML INJ IV SCH ×2 (17:15→21:53)
[2019-10-19] MEDS ORDERED: Potassium Replacement Protocol 1 EACH MISC MISCELLANE PRN (18:12)
[2019-10-19] MEDS: POTASSIUM CHLORIDE 10 MEQ in WATER FOR INJECTION 1 100ML.BAG IVPB SCH ×2 (19:19→23:06)
[2019-10-19] MEDS: QUEtiapine 200 MG TAB PO SCH (21:52)
[2019-10-19] MEDS: LORATADINE 10 MG TAB PO SCH (21:52)
[2019-10-20] MEDS: VALPROATE SODIUM IVPB SCH ×4 (00:21→16:26)
[2019-10-20] MEDS: SODIUM CHLORIDE 0.9% IVPB SCH ×4 (00:21→16:26)
[2019-10-20] MEDS: POTASSIUM CHLORIDE 10 MEQ in WATER FOR INJECTION 1 100ML.BAG IVPB SCH ×2 (01:59→03:08)
[2019-10-20] MEDS: metroNIDAZOLE-NS PMX 500 MG in SALINE 1 100ML.BAG IVPB SCH ×2 (04:46→11:33)
[2019-10-20] MEDS: OXCARBAZEPINE 600 MG PO SCH ×2 (07:11→16:28)
[2019-10-20 07:29] VITALS: RESP 16
[2019-10-20] MEDS: LEVOTHYROXINE 25 MCG TAB PO SCH (08:13)
[2019-10-20] MEDS: GABAPENTIN 300 MG CAP PO SCH ×2 (08:23→13:05)
[2019-10-20] MEDS: FAMOTIDINE 20 MG/2 ML VIAL IV SCH (08:24)
[2019-10-20] MEDS: POLYETHYLENE GLYCOL 3350 17 GM POWD.PACK PO SCH (08:24)
[2019-10-20] MEDS: HEPARIN SODIUM,PORCINE 5,000 UNIT/ML 1 ML VIAL SQ SCH ×2 (08:24→16:26)
[2019-10-20] MEDS: PSYLLIUM HUSK 100% 6 GM PACKET PO SCH (08:24)
[2019-10-20] MEDS: BENZTROPINE MESYLATE 1 MG TAB PO SCH (08:24)
[2019-10-20] MEDS: IPRATROPIUM-ALBUTEROL 3 ML NEB INHALATION SCH ×3 (08:42→16:03)
[2019-10-20 10:41] LABS: African American GFR (CKD) >90 (>60 ml/min/1.73 sqM); Anion Gap 6 mmol/L; Blood Urea Nitrogen 7 mg/dL (9-20); Calcium 8.6 mg/dL (8.4-10.2); Carbon Dioxide 29 mmol/L (22-30); Chloride 108 mmol/L (98-107); Glucose 100 mg/dL (74-99); Magnesium 1.9 mg/dL (1.6-2.3); Non-African American GFR(CKD) >90 (>60 ml/min/1.73 sqM); Potassium 3.6 mmol/L (3.5-5.1); Sodium 143 mmol/L (137-145)
--- NOTE | 2019-10-20 14:12 | P.PN ---
Subjective Progress Note Date: 10/20/19 The patient is seen today 10/20/2019 in follow-up on the regular medical floor. He is currently resting comfortably in bed. He is awake and alert. Maintaining O2 saturation in the mid 90s on room air. He's been afebrile. Hemodynamically stable. Blood cultures reveal no growth. Sodium 143. Potassium 3.6. Chloride 108. Creatinine 0.82. He has been on metronidazole, ceftriaxone. Objective - Vital Signs Vital signs: Vital Signs Temp 98 F 10/20/19 07:00 Pulse 88 10/20/19 08:44 Resp 16 10/20/19 08:00 BP 141/82 10/20/19 07:00 Pulse Ox 95 10/20/19 07:00 Intake & Output 10/19/19 10/20/19 10/20/19 18:59 06:59 18:59 Intake Total 1250 250 Output Total 650 Balance 1250 -650 250 Intake: Intake, IV Titration 1250 250 Amount Magnesium Sulfate-D5w Pmx 750 1 gm In Dextrose/Water 1 100ml.bag @ 100 mls/hr IVPB ONCE ONE Rx#: [id number] Potassium Chloride 20 meq 200 In Water For Injection 1 100ml.bag @ 50 mls/hr IVPB Q2H [facility] Rx#: [id number] Valproate Sodium 625 mg 100 100 In Sodium Chloride 0.9% 100 ml @ 100 mls/hr IVPB Q6HR [facility] Rx#:[id number] cefTRIAXone 1 gm In 100 50 Sodium Chloride 0.9% 50 ml @ 100 mls/hr IVPB Q24HR [facility] Rx#:[id number] metroNIDAZOLE-NS PMX 500 100 100 mg In Saline 1 100ml.bag @ 100 mls/hr IVPB Q8H [facility] Rx#:[id number] Output: Urine 650 Other: Voiding Method Diaper Diaper Diaper # Voids 1 2 - Exam GENERAL EXAM: Alert, frail, autistic, mentally challenged 49-year-old gentleman, on room air, appears comfortable in no apparent distress. HEAD: Normocephalic. EYES: Normal reaction of pupils, equal size. NOSE: Clear with pink turbinates. THROAT: No erythema or exudates. NECK: No masses, no JVD. CHEST: No chest wall deformity. LUNGS: Equal air entry with crackles in the right base CVS: S1 and S2 normal with no audible murmur, regular rhythm. ABDOMEN: No hepatosplenomegaly, normal bowel sounds, no guarding or rigidity. SPINE: Some deformities SKIN: No rashes CENTRAL NERVOUS SYSTEM: Unable to assess, tone is normal in all 4 extremities. EXTREMITIES: Contractures. There is no peripheral edema. No clubbing, no cyanosis. Peripheral pulses are intact. - Labs CBC & Chem 7: 10/17/19 11:14 10/20/19 09:42 Labs: Abnormal Lab Results - Last 24 Hours (Table) 10/19/19 10/20/19 Range/Units 15:59 09:42 Potassium 3.4 L (3.5-5.1) mmol/L Chloride 108 H (98-107) mmol/L BUN 7 L (9-20) mg/dL Glucose 100 H (74-99) mg/dL Assessment and Plan Assessment: 1 Acute aspiration of either liquid food or medication with acute hypoxic respiratory failure initially requiring BiPAP and AirVo high flow oxygen device, recovered and currently on room air 2 History of seizure disorder 3 History of autism 4 History of pica 5 Fecal impaction 6 Hypothyroidism 7 Failure to thrive with decreased oral intake 8 Hypernatremia, improved current sodium 143. Plan: The patient was seen and evaluated by Dr. Malhotra Cleared for discharge from the pulmonary standpoint Continue aspiration precautions We'll see him on an as-needed basis I, the cosigning physician, performed a history & physical examination of the patient. Lungs sounds crackles in the right lung base. Maintaining good O2 saturations in the 90s on room air. I discussed the assessment and plan of care with my nurse practitioner, Yolanda Leung. I attest to the above note as dictated by her.
[2019-10-20 15:30] VITALS: BP 155/93; TEMP 98.7
[2019-10-20 16:10] VITALS: PULSE 76
[2019-10-20] MEDS: LORazepam 2 MG/ML INJ IV SCH (16:24)
--- NOTE | 2019-10-20 23:00 | P.DS ---
Providers Date of admission: 10/12/19 17:45 Attending physician: Pedro Veliz Consults: 10/14/19 01:26 Consult Physician Routine Consulting Provider: Jeffery Ybarra Reason/Comments: pneumonia Do you want consulting provider notified?: Yes, Notify in am Primary care physician: Grayson Diego [facility] Course: Diagnoses: Failure to thrive with decreased oral intake Dehydration and volume depletion, with hypernatremia. improved Possible aspiration pneumonia with acute hypoxic respiratory failure, improved Fecal impaction of colon Developmentally challenged Autism History of epilepsy Hypothyroidism DVT prophylaxis with heparin subcu. Hospital course: Patient is a 49-year-old male with a known history of developmentally challenged, autism and history of epilepsy who was recently discharged from the hospital on 10/02/2019, was treated for bacterial pneumonia, completed antibiotic course with Augmentin was brought to the hospital from [facility] home due to patient being more sleepy and falling and imbalance. Patient does have a legal guardian . Found to have aspiration pneumonia, which was treated successfully and patient is breathing quietly now. Patient is followed by pulmonary. Swallow evaluation was done and he was placed on modified diet with assistance (pured diet, nocturnal liquids, thin liquids, sitting up with feeding at 90, No stroke, liquids from [place], small bites and sips, direct supervision). Patient tolerated diet well, no need for PEG tube placement for now. Patient is cleared for discharge by pulmonary service Patient was found stable and can be discharged home and guarded prognosis however he needs follow-up as an outpatient. However patient needs to follow up with PCP within one week and patient agrees today and spoke with the medical guardian was liquids over the phone and discussed the discharge plan with her and she verbalized agreement. Also she agrees that patient will be discharged on modified diet with help, diet instructions is discussed with her as well. Prognosis: patient long-term prognosis is poor, with concerns regarding quality of life. Patient is also at higher risk of aspiration pneumonia and recurrent hospitalization. -Gen: patient is a confused at baseline, nonverbal, does not follow commands, no distress CVS: S1-S2, RRR, no murmur Lungs: B/L CTA, no wheezing Abdomen: soft, no distention, no tenderness, positive bowel sounds Extremity: no leg edema or induration Time spent more than 35 minutes Patient Condition at Discharge: Fair Plan - Discharge Summary Discharge Rx Participant: No New Discharge Prescriptions: New Cefuroxime Axetil [Ceftin] 500 mg PO BID 5 Days #10 tab Albuterol Inhaler [Ventolin Hfa Inhaler] 2 puff INHALATION RT-QID #1 inh Continue Demeclocycline HCl 300 mg PO PC-TID Benztropine Mesylate 1 mg PO BID@0600,2000 Levothyroxine Sodium [Synthroid] 25 mcg PO DAILY@0600 LORazepam [Ativan] 1 mg PO DAILY PRN PRN Reason: Seizures Gabapentin [Neurontin] 300 mg PO QID Vitamin E 100 unit PO TID@0600,1800,2200 Sodium Chloride Tab 1 gm PO TID@0600,1200,1800 QUEtiapine [SEROquel] 200 mg PO HS@2000 OXcarbazepine [Oxtellar Xr] 600 mg PO BID@0600,1800 LORazepam [Ativan] 0.5 mg PO BID@1600,2200 Vitamin B Complex/Folic Acid [Vitamin B Complex Tablet] 0.4 mg PO DAILY@0600 Divalproex [Depakote] 1,500 mg PO DAILY@0600 Divalproex [Depakote] 1,000 mg PO DAILY@1800 Selenium Sul 1% Shampoo 1 applic TOPICAL DIRECTED PRN PRN Reason: DANDRUFF Diastat 10mg 10 mg RECTAL ONCE PRN PRN Reason: seizures over 4min Tamsulosin [Flomax] 0.4 mg PO HS #30 cap.er.24h Psyllium Husk 100% [Metamucil Packet] 6 gm PO DAILY #30 packet Selsun Blue Sha 1% 1 applic TOPICAL DIRECTED Bisacodyl 10 mg RECTAL Q72H PRN PRN Reason: Constipation Cetirizine HCl [Zyrtec] 10 mg PO HS@2200 Docusate [Colace] 100 mg PO BID PRN PRN Reason: Constipation Discharge Medication List Benztropine Mesylate 1 mg PO BID@0600,199909/25/19 [History] Demeclocycline HCl 300 mg PO PC-TID 09/25/19 [History] Divalproex [Depakote] 1,500 mg PO DAILY@0600 09/25/19 [History] Gabapentin [Neurontin] 300 mg PO QID 09/25/19 [History] LORazepam [Ativan] 0.5 mg PO BID@1600,2200 09/25/19 [History] LORazepam [Ativan] 1 mg PO DAILY PRN 09/25/19 [History] Levothyroxine Sodium [Synthroid] 25 mcg PO DAILY@0600 09/25/19 [History] OXcarbazepine [Oxtellar Xr] 600 mg PO BID@0600,1800 09/25/19 [History] QUEtiapine [SEROquel] 200 mg PO HS@199909/25/19 [History] Sodium Chloride Tab 1 gm PO TID@0600,1200,1800 09/25/19 [History] Vitamin B Complex/Folic Acid [Vitamin B Complex Tablet] 0.4 mg PO DAILY@59909/25/19 [History] Vitamin E 100 unit PO TID@0600,1800,219909/25/19 [History] Diastat 10mg 10 mg RECTAL ONCE PRN 09/26/19 [History] Divalproex [Depakote] 1,000 mg PO DAILY@179909/26/19 [History] Selenium Sul 1% Shampoo 1 applic TOPICAL DIRECTED PRN 09/26/19 [History] Psyllium Husk 100% [Metamucil Packet] 6 gm PO DAILY #30 packet 10/02/19 [Rx] Tamsulosin [Flomax] 0.4 mg PO HS #30 cap.er.24h 10/02/19 [Rx] Bisacodyl 10 mg RECTAL Q72H PRN 10/12/19 [History] Cetirizine HCl [Zyrtec] 10 mg PO HS@219910/12/19 [History] Docusate [Colace] 100 mg PO BID PRN 10/12/19 [History] Selsun Blue Sha 1% 1 applic TOPICAL DIRECTED 10/12/19 [History] Albuterol Inhaler [Ventolin Hfa Inhaler] 2 puff INHALATION RT-QID #1 inh 10/20/19 [Rx] Cefuroxime Axetil [Ceftin] 500 mg PO BID 5 Days #10 tab 10/20/19 [Rx] Follow up Appointment(s)/Referral(s): Grayson Diego MD [Primary Care Provider] - 1-2 days Residential Home,Health [NON-STAFF] - As Needed Patient Instructions/Handouts: Community Acquired Pneumonia (DC) Activity/Diet/Wound Care/Special Instructions: CALL ANGELA FROM [facility] FOR D/C TRANSPORT [phone] CELL [phone] Dietary recommendation: (pured diet, nocturnal liquids, thin liquids, sitting up with feeding at 90, No stroke, liquids from [place], small bites and sips, direct supervision) Discharge Disposition: OTHER INSTITUTION NOT DEFINED
--- NOTE | 2019-10-22 08:08 | CDI ---
Documentation Clarification Form Date: 10/22/19 From: Lubna Jimenez Phone: If you have a question about this query, please contact Patience Menjivar, [employer] at [phone] between 8am and 5pm. Admit Date: 10/12/19 Discharge Date: 10/20/19 Patient Name: KELLY ROSARIO Visit Number: [id number] ATTENTION: The Clinical Documentation Specialists (CDI) and [facility] Coding Staff appreciate your assistance in clarifying documentation. Please respond to the clarification below the line at the bottom and electronically sign. The CDI & [facility] Coding staff will review the response and follow-up if needed. Please note: Queries are made part of the Legal Health Record. If you have any questions, please contact the author of this message via ITS. Dear Dr. Sosa Sheet, Conflicting documentation has been found in the medical record: Per H&P the patient was admitted with pneumonia. On 10/13 per PN "possible aspiration pneumonia". History/Risk Factors: Recurrent pneumonia, autistic, hypernatremia, fecal impaction, dehydration, adult failure to thrive. OCD Clinical Indicators: 10/11 CXR- Improving right sided acute infiltrates.Suspect retrocardiac acute infiltrate and/or atelectasis. Background low lung volumes and cardiomegaly redemonstrated. 10/11 VS: t-97.5, P-65, R-18, BP-137/93, O2 sat- 94 Treatment: Started on pneumonia protocol, IV Rocephin, 10/13 IV Flagyl In your opinion, what is the most clinically appropriate diagnosis of pneumonia for this patient? Pneumonia Aspiration pneumonia Other explanation of clinical findings Unable to determine (no explanation for clinical findings) Aspiration pneumonia MTDD
== END 2019-10-20 18:14 | disposition home health service (06) | DRG 177 ==
LOC: EC 14:49 → 4SSUR 17:45
PROVIDERS: ADMIT Internal Medicine; ATTEND Internal Medicine
PROC: 5A09357 Assistance with Respiratory Ventilation, Less than 24 Consecutive Hours, Continuous Positive Airway Pressure (ICD-10-PCS; principal; 2019-10-13 11:35)
PROC: 05HF33Z Insertion of Infusion Device into Left Cephalic Vein, Percutaneous Approach (ICD-10-PCS; 2019-10-13 11:35)
DX: J69.0 Pneumonitis due to inhalation of food and vomit (principal); J96.01 Acute respiratory failure with hypoxia; F84.0 Autistic disorder; E87.0 Hyperosmolality and hypernatremia; K56.41 Fecal impaction; G40.909 Epilepsy, unspecified, not intractable, without status epilepticus; M46.02 Spinal enthesopathy, cervical region; G31.9 Degenerative disease of nervous system, unspecified; Z66 Do not resuscitate; F50.89 Other specified eating disorder; R62.7 Adult failure to thrive; R54 Age-related physical debility; Z20.828 Contact with and (suspected) exposure to other viral communicable diseases; E86.0 Dehydration; E03.9 Hypothyroidism, unspecified; I51.7 Cardiomegaly; F42.9 Obsessive-compulsive disorder, unspecified; R32 Unspecified urinary incontinence; F81.9 Developmental disorder of scholastic skills, unspecified; R29.6 Repeated falls; Z68.20 Body mass index [BMI] 20.0-20.9, adult; Z79.890 Hormone replacement therapy; Z79.899 Other long term (current) drug therapy; Z87.01 Personal history of pneumonia (recurrent); Z74.01 Bed confinement status; Z88.0 Allergy status to penicillin; Z88.2 Allergy status to sulfonamides; Z88.8 Allergy status to other drugs, medicaments and biological substances
CPT/HCPCS: 36410; 36415; 36600; 70450; 71045; 71046; 72125; 74018; 76937; 80048; 80053; 80164; 81003; 82550; 82805; 83605; 83735; 83880; 84132; 84484; 85025; 85610; 85730; 87040; 93005; 94640; 94660; 94760; 96361; 96365; 99285

== ENCOUNTER 2019-10-22 12:57 | Emergency (ER) | payer MEDICARE, OTHER ==
[2019-10-22 13:08] VITALS: TEMP 97.8
--- NOTE | 2019-10-22 13:16 | ED ---
General Adult HPI - General Chief complaint: Altered Mental Status Stated complaint: AMS Time Seen by Provider: 10/22/19 13:04 Source: RN/MD, RN notes reviewed Mode of arrival: EMS Limitations: altered mental status, physical limitation - History of Present Illness Initial comments: Patient is a 49-year-old male presenting to the emergency department by EMS for reported change in mental status. Patient was found by staff slumped over a chair and less responsive. Patient has become more responsive since EMS arrival and is reported at normal status at this time. Patient is nonverbal secondary to chronic mental problems. Patient does have history of seizures however no seizure was witnessed today. Patient was recently in the hospital and disch arged. - Related Data Home Medications Medication Instructions Recorded Confirmed Benztropine Mesylate 1 mg PO BID@599,199909/25/19 10/12/19 Demeclocycline HCl 300 mg PO PC-TID 09/25/19 10/12/19 Divalproex [Depakote] 1,500 mg PO DAILY@59909/25/19 10/12/19 Gabapentin [Neurontin] 300 mg PO QID 09/25/19 10/12/19 LORazepam [Ativan] 0.5 mg PO BID@1600,219909/25/19 10/12/19 LORazepam [Ativan] 1 mg PO DAILY PRN 09/25/19 10/12/19 Levothyroxine Sodium [Synthroid] 25 mcg PO DAILY@59909/25/19 10/12/19 OXcarbazepine [Oxtellar Xr] 600 mg PO BID@0600,179909/25/19 10/12/19 QUEtiapine [SEROquel] 200 mg PO HS@199909/25/19 10/12/19 Sodium Chloride Tab 1 gm PO TID@0600,1200,1800 09/25/19 10/12/19 Vitamin B Complex/Folic Acid 0.4 mg PO DAILY@59909/25/19 10/12/19 [Vitamin B Complex Tablet] Vitamin E 100 unit PO TID@0600,1800,0 09/25/19 10/12/19 Diastat 10mg 10 mg RECTAL ONCE PRN 09/26/19 10/12/19 Divalproex [Depakote] 1,000 mg PO DAILY@1800 09/26/19 10/12/19 Selenium Sul 1% Shampoo 1 applic TOPICAL DIRECTED PRN 09/26/19 10/12/19 Bisacodyl 10 mg RECTAL Q72H PRN 10/12/19 10/12/19 Cetirizine HCl [Zyrtec] 10 mg PO HS@2200 10/12/19 10/12/19 Docusate [Colace] 100 mg PO BID PRN 10/12/19 10/12/19 Selsun Blue Sha 1% 1 applic TOPICAL DIRECTED 10/12/19 10/12/19 Previous Rx's Medication Instructions Recorded Psyllium Husk 100% [Metamucil 6 gm PO DAILY #30 packet 10/02/19 Packet] Tamsulosin [Flomax] 0.4 mg PO HS #30 cap.er.24h 10/02/19 Albuterol Inhaler [Ventolin Hfa 2 puff INHALATION RT-QID #1 inh 10/20/19 Inhaler] Cefuroxime Axetil [Ceftin] 500 mg PO BID 5 Days #10 tab 10/20/19 Gabapentin [Neurontin] 300 mg PO QID #40 cap 10/22/19 Allergies Allergy/AdvReac Type Severity Reaction Status Date / Time brivaracetam [From Briviact] Allergy Unknown Verified 10/12/19 16:02 escitalopram [From Lexapro] Allergy Unknown Verified 10/12/19 16:02 fluoxetine [From Prozac] Allergy Unknown Verified 10/12/19 16:02 haloperidol [From Haldol] Allergy Unknown Verified 10/12/19 16:02 lacosamide [From Vimpat] Allergy Unknown Verified 10/12/19 16:02 methylphenidate Allergy Unknown Verified 10/12/19 16:02 [From Ritalin] Penicillins Allergy Unknown Verified 10/12/19 16:02 phenobarbital Allergy Unknown Verified 10/12/19 16:02 phenytoin [From Dilantin] Allergy Unknown Verified 10/12/19 16:02 sulfamethoxazole Allergy Unknown Verified 10/12/19 16:02 [From Bactrim] trimethoprim [From Bactrim] Allergy Unknown Verified 10/12/19 16:02 Review of Systems ROS Statement: Those systems with pertinent positive or pertinent negative responses have been documented in the HPI. ROS Other: All systems not noted in ROS Statement are negative. Limitations: ROS unobtainable due to patients medical condition Past Medical History Additional Past Medical History / Comment(s): autism, pica, epilepsy History of Any Multi-Drug Resistant Organisms: None Reported Past Surgical History: No Surgical Hx Reported Past Anesthesia/Blood Transfusion Reactions: No Reported Reaction Past Psychological History: Unable to Obtain Smoking Status: Never smoker Past Alcohol Use History: Unable to Obtain Past Drug Use History: Unable to Obtain General Exam Limitations: altered mental status, physical limitation General appearance: alert, in no apparent distress Head exam: Present: atraumatic Eye exam: Present: normal appearance, PERRL, other (Disconjugate gaze) Neck exam: Present: normal inspection. Absent: tenderness Respiratory exam: Present: normal lung sounds bilaterally Cardiovascular Exam: Present: regular rate, normal rhythm, normal heart sounds GI/Abdominal exam: Present: soft. Absent: tenderness Extremities exam: Present: normal inspection, full ROM. Absent: tenderness Neurological exam: Present: alert, other (Nonverbal. Does not follow commands. Somewhat limited exam. Does move all extremities without apparent weakness) Expanded Neurological exam: Present: protecting the airway Motor strength exam: RUE: 5, LUE: 5, RLE: 5, LLE: 5 Eye Response: (4) open spontaneously Motor Response: (5) localizes to pain Verbal Response: (1) no verbal response Psychiatric exam: Present: other (Nonverbal) Skin exam: Present: normal color Course Vital Signs 10/22/19 13:04 Temperature 97.8 F Pulse Rate 80 Respiratory 18 Rate Blood Pressure 127/89 O2 Sat by Pulse 96 Oximetry EKG Findings - EKG Comments: EKG Findings:: Normal sinus rhythm 80. OR 170. QRS 108. QT 372. QTC 429. Right axis. Incomplete right bundle-branch block. No acute ST change Medical Decision Making - Medical Decision Making Patient reevaluated and resting comfortably in bed. Case was discussed with Dr. hernandez who is familiar with this patient and recommends discharge. He does recommend writing prescription for gabapentin 300 4 times a day. Retinal Surgeon is present and in agreement with plan. Cause of episode is unknown at this time. It is most likely the patient had a seizure that was not witnessed and was somewhat postictal following this. Patient improved upon arrival to emergency department. - Lab Data Result diagrams: 10/22/19 13:02 10/22/19 13:02 Lab Results 10/22/19 10/22/19 10/22/19 Range/Units 13:02 13:02 13:02 WBC 5.8 (3.8-10.6) k/uL RBC 3.59 L (4.30-5.90) m/uL Hgb 10.4 L (13.0-17.5) gm/dL Hct 32.8 L (39.0-53.0) % MCV 91.3 (80.0-100.0) fL MCH 29.0 (25.0-35.0) pg MCHC 31.7 (31.0-37.0) g/dL RDW 14.0 (11.5-15.5) % Plt Count 298 (150-450) k/uL Neutrophils % 58 % Lymphocytes % 28 % Monocytes % 9 % Eosinophils % 2 % Basophils % 1 % Neutrophils # 3.4 (1.3-7.7) k/uL Lymphocytes # 1.6 (1.0-4.8) k/uL Monocytes # 0.5 (0-1.0) k/uL Eosinophils # 0.1 (0-0.7) k/uL Basophils # 0.1 (0-0.2) k/uL PT 12.2 H (9.0-12.0) sec INR 1.2 H (<1.2) APTT 24.8 (22.0-30.0) sec Sodium 141 (137-145) mmol/L Potassium 3.7 (3.5-5.1) mmol/L Chloride 104 (98-107) mmol/L Carbon Dioxide 31 H (22-30) mmol/L Anion Gap 6 mmol/L BUN 15 (9-20) mg/dL Creatinine 0.91 (0.66-1.25) mg/dL Est GFR (CKD-EPI)AfAm >90 (>60 ml/min/1.73 sqM) Est GFR (CKD-EPI)NonAf >90 (>60 ml/min/1.73 sqM) Glucose 97 (74-99) mg/dL Calcium 8.7 (8.4-10.2) mg/dL Total Bilirubin 0.3 (0.2-1.3) mg/dL AST 27 (17-59) U/L ALT 19 (4-49) U/L Alkaline Phosphatase 78 (38-126) U/L Troponin I (0.000-0.034) ng/mL Total Protein 5.7 L (6.3-8.2) g/dL Albumin 3.0 L (3.5-5.0) g/dL Urine Color Urine Appearance (Clear) Urine pH (5.0-8.0) Ur Specific [place] (1.001-1.035) Urine Protein (Negative) Urine Glucose (UA) (Negative) Urine Ketones (Negative) Urine Blood (Negative) Urine Nitrite (Negative) Urine Bilirubin (Negative) Urine Urobilinogen (<2.0) mg/dL Ur Leukocyte Esterase (Negative) Valproic Acid 115.3 ug/mL 10/22/19 10/22/19 Range/Units 13:02 14:14 WBC (3.8-10.6) k/uL RBC (4.30-5.90) m/uL Hgb (13.0-17.5) gm/dL Hct (39.0-53.0) % MCV (80.0-100.0) fL MCH (25.0-35.0) pg MCHC (31.0-37.0) g/dL RDW (11.5-15.5) % Plt Count (150-450) k/uL Neutrophils % % Lymphocytes % % Monocytes % % Eosinophils % % Basophils % % Neutrophils # (1.3-7.7) k/uL Lymphocytes # (1.0-4.8) k/uL Monocytes # (0-1.0) k/uL Eosinophils # (0-0.7) k/uL Basophils # (0-0.2) k/uL PT (9.0-12.0) sec INR (<1.2) APTT (22.0-30.0) sec Sodium (137-145) mmol/L Potassium (3.5-5.1) mmol/L Chloride (98-107) mmol/L Carbon Dioxide (22-30) mmol/L Anion Gap mmol/L BUN (9-20) mg/dL Creatinine (0.66-1.25) mg/dL Est GFR (CKD-EPI)AfAm (>60 ml/min/1.73 sqM) Est GFR (CKD-EPI)NonAf (>60 ml/min/1.73 sqM) Glucose (74-99) mg/dL Calcium (8.4-10.2) mg/dL Total Bilirubin (0.2-1.3) mg/dL AST (17-59) U/L ALT (4-49) U/L Alkaline Phosphatase (38-126) U/L Troponin I <0.012 (0.000-0.034) ng/mL Total Protein (6.3-8.2) g/dL Albumin (3.5-5.0) g/dL Urine Color Yellow Urine Appearance Clear (Clear) Urine pH 7.0 (5.0-8.0) Ur Specific [place] 1.013 (1.001-1.035) Urine Protein Negative (Negative) Urine Glucose (UA) Negative (Negative) Urine Ketones Negative (Negative) Urine Blood Negative (Negative) Urine Nitrite Negative (Negative) Urine Bilirubin Negative (Negative) Urine Urobilinogen <2.0 (<2.0) mg/dL Ur Leukocyte Esterase Negative (Negative) Valproic Acid ug/mL - Radiology Data Radiology results: report reviewed (Computed tomography scan the brain shows no acute process), image reviewed (Chest x-ray shows continued right basilar airspace disease) Disposition Clinical Impression: Decreased responsiveness Disposition: HOME SELF-CARE Condition: Stable Instructions (If sedation given, give patient instructions): Altered Mental Status (ED), Recurrent Seizures in Adults (ED) Additional Instructions: Please follow-up with primary care physician in the next couple days for recheck. Return for recurrent seizures, fevers, difficult to breathing, worsening or changing symptoms or other concerns. Prescription sent to [facility] Prescriptions: Gabapentin [Neurontin] 300 mg PO QID #40 cap Is patient prescribed a controlled substance at d/c from ED?: No Referrals: Grayson Diego MD [Primary Care Provider] - 1-2 days Time of Disposition: 15:30
[2019-10-22 13:33] LABS: Basophils # (A) 0.1 k/uL (0-0.2); Basophils % (A) 1 %; Eosinophils # (A) 0.1 k/uL (0-0.7); Eosinophils % (A) 2 %; HCT 32.8 % (39.0-53.0); HGB 10.4 gm/dL (13.0-17.5); Lymphocytes # (A) 1.6 k/uL (1.0-4.8); Lymphocytes % (A) 28 %; MCHC 31.7 g/dL (31.0-37.0); MCV 91.3 fL (80.0-100.0); Monocytes # (A) 0.5 k/uL (0-1.0); Monocytes % (A) 9 %; Neutrophils # (A) 3.4 k/uL (1.3-7.7); Neutrophils % (A) 58 %; Platelet Count 298 k/uL (150-450); RBC 3.59 m/uL (4.30-5.90); WBC 5.8 k/uL (3.8-10.6)
[2019-10-22 13:37] LABS: ALT 19 U/L (4-49); AST 27 U/L (17-59); African American GFR (CKD) >90 (>60 ml/min/1.73 sqM); Alkaline Phosphatase 78 U/L (38-126); Anion Gap 6 mmol/L; Blood Urea Nitrogen 15 mg/dL (9-20); Calcium 8.7 mg/dL (8.4-10.2); Carbon Dioxide 31 mmol/L (22-30); Chloride 104 mmol/L (98-107); Glucose 97 mg/dL (74-99); INR 1.2 (<1.2); Non-African American GFR(CKD) >90 (>60 ml/min/1.73 sqM); Partial Thromboplastin Time 24.8 sec (22.0-30.0); Potassium 3.7 mmol/L (3.5-5.1); Prothrombin Time 12.2 sec (9.0-12.0); Sodium 141 mmol/L (137-145); Total Bilirubin 0.3 mg/dL (0.2-1.3); Total Protein 5.7 g/dL (6.3-8.2)
[2019-10-22 13:42] LABS: Valproic Acid (Depakene) 115.3 ug/mL
[2019-10-22] MEDS ORDERED: LORazepam 1 MG TAB PO STA (13:49)
--- NOTE | 2019-10-22 14:06 | CT ---
EXAMINATION TYPE: CT brain wo con DATE OF EXAM: 10/22/2019 COMPARISON: Previous study dated 10/16/2019. HISTORY: Altered mental status CT DLP: 1158.4 mGycm Automated exposure control for dose reduction was used. FINDINGS: There are mild changes of sulcal prominence and ventriculomegaly compatible with atrophic change. The re is diffuse periventricular white matter lucency, compatible with chronic white matter ischemic naif nge. There is physiologic calcification of the basal ganglia. There is no acute focal lesion, mass ef fect or midline shift identified. I do not see evidence of intracranial blood. Visualized portions of the paranasal sinuses and mastoids are clear. The bony calvarium is intact. IMPRESSION: 1. NO ACUTE INTRACRANIAL ABNORMALITY. 2. MILD DEGENERATIVE CHANGE.
--- NOTE | 2019-10-22 14:07 | XR ---
EXAMINATION TYPE: XR chest 2V DATE OF EXAM: 10/22/2019 HISTORY: altered mental status. REFERENCE: Previous study dated 10/15/2019 there is an S-shaped scoliosis convex to the left in the th oracic region and to the right in the lumbar region. There continues to be extensive right lower lung airspace disease. The right lung appears clear. Hear t size is obscured. I suspect a right-sided effusion.. FINDINGS: Continuing, extensive right basilar airspace disease. IMPRESSION:
[2019-10-22 15:08] LABS: Appearance,Urine Clear (Clear); Bilirubin,Urine Negative (Negative); Blood,Urine Negative (Negative); Color,Urine Yellow; Glucose,Urine (UA) Negative (Negative); Ketones,Urine Negative (Negative); Leukocyte Esterase,Urine Negative (Negative); Nitrite,Urine Negative (Negative); Protein,Urine Negative (Negative); Specific Gravity,Urine 1.013 (1.001-1.035); Urobilinogen,Urine <2.0 mg/dL (<2.0)
[2019-10-22 15:57] VITALS: BP 123/78; PULSE 76; RESP 18
== END 2019-10-22 15:45 | disposition home or self-care (01) ==
LOC: EC 12:57
DX: F84.0 Autistic disorder (principal); Z88.0 Allergy status to penicillin; Z88.2 Allergy status to sulfonamides; Z88.8 Allergy status to other drugs, medicaments and biological substances
CPT/HCPCS: 36415; 70450; 71046; 80053; 80164; 81003; 84484; 85025; 85610; 85730; 93005; 99285

== ENCOUNTER 2020-07-12 00:39 | Observation (INO) | payer MEDICARE, OTHER ==
--- NOTE | 2020-07-12 01:16 | ED ---
URI HPI - General Chief Complaint: Upper Respiratory Infection Stated Complaint: Fever Time Seen by Provider: 07/12/20 01:06 Source: family, EMS, RN notes reviewed Mode of arrival: EMS Limitations: no limitations - History of Present Illness Initial Comments: Patient is a 49-year-old male that presents to emergency department with his family after testing positive for Covid in [place]. They decided to transfer him over to our emergency department due to his history of developing pneumonias. He was laying in bed covered in blankets in no apparent distress or pain. Unable to obtain review of systems due to patient's mental status. Family states that he'll have any paperwork from his [place] visit. - Related Data Home Medications Medication Instructions Recorded Confirmed Benztropine Mesylate 1 mg PO BID@599,199909/25/19 10/12/19 Demeclocycline HCl 300 mg PO PC-TID 09/25/19 10/12/19 Divalproex [Depakote] 1,500 mg PO DAILY@59909/25/19 10/12/19 Gabapentin [Neurontin] 300 mg PO QID 09/25/19 10/12/19 LORazepam [Ativan] 0.5 mg PO BID@1600,219909/25/19 10/12/19 LORazepam [Ativan] 1 mg PO DAILY PRN 09/25/19 10/12/19 Levothyroxine Sodium [Synthroid] 25 mcg PO DAILY@59909/25/19 10/12/19 OXcarbazepine [Oxtellar Xr] 600 mg PO BID@0600,179909/25/19 10/12/19 QUEtiapine [SEROquel] 200 mg PO HS@199909/25/19 10/12/19 Sodium Chloride Tab 1 gm PO TID@0600,1200,1800 09/25/19 10/12/19 Vitamin B Complex/Folic Acid 0.4 mg PO DAILY@59909/25/19 10/12/19 [Vitamin B Complex Tablet] Vitamin E 100 unit PO TID@0600,1800,0 09/25/19 10/12/19 Diastat 10mg 10 mg RECTAL ONCE PRN 09/26/19 10/12/19 Divalproex [Depakote] 1,000 mg PO DAILY@1800 09/26/19 10/12/19 Selenium Sul 1% Shampoo 1 applic TOPICAL DIRECTED PRN 09/26/19 10/12/19 Cetirizine HCl [Zyrtec] 10 mg PO HS@2200 10/12/19 10/12/19 Docusate [Colace] 100 mg PO BID PRN 10/12/19 10/12/19 Selsun Blue Sha 1% 1 applic TOPICAL DIRECTED 10/12/19 10/12/19 bisacodyL [Bisacodyl] 10 mg RECTAL Q72H PRN 10/12/19 10/12/19 Previous Rx's Medication Instructions Recorded Psyllium Husk 100% [Metamucil 6 gm PO DAILY #30 packet 10/02/19 Packet] Tamsulosin [Flomax] 0.4 mg PO HS #30 cap.er.24h 10/02/19 Albuterol Inhaler [Ventolin Hfa 2 puff INHALATION RT-QID #1 inh 10/20/19 Inhaler] Cefuroxime Axetil [Ceftin] 500 mg PO BID 5 Days #10 tab 10/20/19 Gabapentin [Neurontin] 300 mg PO QID #40 cap 10/22/19 Allergies Allergy/AdvReac Type Severity Reaction Status Date / Time brivaracetam [From Briviact] Allergy Unknown Verified 07/12/20 01:02 escitalopram [From Lexapro] Allergy Unknown Verified 07/12/20 01:02 fluoxetine [From Prozac] Allergy Unknown Verified 07/12/20 01:02 haloperidol [From Haldol] Allergy Unknown Verified 07/12/20 01:02 lacosamide [From Vimpat] Allergy Unknown Verified 07/12/20 01:02 methylphenidate Allergy Unknown Verified 07/12/20 01:02 [From Ritalin] Penicillins Allergy Unknown Verified 07/12/20 01:02 phenobarbital Allergy Unknown Verified 07/12/20 01:02 phenytoin [From Dilantin] Allergy Unknown Verified 07/12/20 01:02 sulfamethoxazole Allergy Unknown Verified 07/12/20 01:02 [From Bactrim] trimethoprim [From Bactrim] Allergy Unknown Verified 07/12/20 01:02 Review of Systems ROS Statement: Those systems with pertinent positive or pertinent negative responses have been documented in the HPI. ROS Other: All systems not noted in ROS Statement are negative. Past Medical History Additional Past Medical History / Comment(s): autism, pica, epilepsy History of Any Multi-Drug Resistant Organisms: None Reported Past Surgical History: No Surgical Hx Reported Past Anesthesia/Blood Transfusion Reactions: No Reported Reaction Past Psychological History: Unable to Obtain Smoking Status: Never smoker Past Alcohol Use History: Unable to Obtain Past Drug Use History: Unable to Obtain General Exam Limitations: language barrier, physical limitation General appearance: alert, in no apparent distress Head exam: Present: atraumatic, normocephalic, normal inspection Eye exam: Present: normal appearance, PERRL, EOMI. Absent: scleral icterus, conjunctival injection, periorbital swelling ENT exam: Present: normal exam, mucous membranes moist Neck exam: Present: normal inspection. Absent: tenderness, meningismus, lymphadenopathy Respiratory exam: Present: normal lung sounds bilaterally. Absent: respiratory distress, wheezes, rales, rhonchi, stridor Cardiovascular Exam: Present: regular rate, normal rhythm, normal heart sounds. Absent: systolic murmur, diastolic murmur, rubs, gallop, clicks GI/Abdominal exam: Present: soft, normal bowel sounds. Absent: distended, tenderness, guarding, rebound, rigid Extremities exam: Present: normal inspection, normal capillary refill. Absent: tenderness, pedal edema, joint swelling, calf tenderness Back exam: Present: normal inspection Neurological exam: Present: alert, oriented X3, CN II-XII intact Psychiatric exam: Present: normal mood Skin exam: Present: warm, dry, intact, normal color. Absent: rash Course Vital Signs 07/12/20 00:59 Temperature 97.8 F Pulse Rate 77 Respiratory 16 Rate Blood Pressure 104/89 O2 Sat by Pulse 97 Oximetry Medical Decision Making - Medical Decision Making 49-year-old male transferred from [place] being Covid positive. Labs from [place] used. Case discussed with Dr. Atwood, patient will be admitted. Disposition Clinical Impression: COVID-19 Disposition: ADMITTED IP TO THIS [facility] Condition: Stable Is patient prescribed a controlled substance at d/c from ED?: No Referrals: Grayson Diego MD [Primary Care Provider] - 1-2 days Time of Disposition: 02:30
[2020-07-12] MEDS ORDERED: ALBUTEROL HFA INHALER INHALATION PRN (02:58)
[2020-07-12] MEDS ORDERED: ONDANSETRON 4 MG/2 ML VIAL IVP PRN (02:58)
[2020-07-12] MEDS ORDERED: NALOXONE 0.4 MG/ML 1 ML VIAL IV PRN (02:58)
[2020-07-12] MEDS ORDERED: MORPHINE SULFATE 4 MG/ML SYRINGE IV PRN (02:58)
[2020-07-12] MEDS: SODIUM CHLORIDE 0.9% 1,000 ML IV SCH ×3 (05:02→23:30)
[2020-07-12] MEDS ORDERED: bisacodyL 10 MG SUPP RECTAL PRN (10:27)
[2020-07-12] MEDS ORDERED: MAGNESIUM HYDROXIDE 2,400 MG/10 ML CUP PO PRN (10:27)
[2020-07-12] MEDS ORDERED: LORazepam 1 MG TAB PO PRN (10:27)
[2020-07-12] MEDS: OXCARBAZEPINE 600 MG PO SCH ×2 (11:25→19:41)
[2020-07-12] MEDS: LEVOTHYROXINE 25 MCG TAB PO SCH (11:38)
[2020-07-12] MEDS: GABAPENTIN 300 MG CAP PO SCH ×4 (11:38→22:16)
[2020-07-12] MEDS: levETIRAcetam 250 MG TAB PO SCH ×2 (11:39→22:29)
[2020-07-12] MEDS: LORazepam 0.5 MG TAB PO SCH ×3 (11:39→22:28)
[2020-07-12] MEDS: SODIUM CHLORIDE TAB 1 GM TAB PO SCH ×2 (11:39→21:08)
[2020-07-12] MEDS: DIVALPROEX 250 MG TABLET.DR PO SCH ×3 (11:40→21:14)
[2020-07-12] MEDS ORDERED: CHOLECALCIFEROL 25 MCG (1000 IU) TABLET PO SCH (12:00)
[2020-07-12] MEDS: DIVALPROEX 500 MG TABLET.DR PO SCH ×2 (12:14→21:06)
--- NOTE | 2020-07-12 14:29 | XR ---
EXAMINATION TYPE: XR chest 1V portable DATE OF EXAM: 07/12/2020 Comparison: 07/11/2020 Clinical History: 49-year-old male COVID-19/congested Findings: Low lung volumes. Heart borderline to mildly enlarged. Increasing patchy and interstitial opacity. No sizable effusion. Impression: 1. Borderline to mild cardiomegaly. Heart size may be accentuated due to low lung volumes. 2. Increasing interstitial and patchy opacities. Correlate to exclude developing mild CHF vs COVID pn eumonia
[2020-07-12] MEDS: dexAMETHasone 2 MG TAB PO SCH (14:54)
[2020-07-12] MEDS: ENOXAPARIN 40 MG/0.4 ML SYRINGE SQ SCH (14:55)
[2020-07-12] MEDS ORDERED: FERROUS SULFATE 325 MG TAB PO SCH (16:00)
[2020-07-12] MEDS ORDERED: PSYLLIUM HUSK 100% 6 GM PACKET PO SCH (18:00)
[2020-07-12] MEDS ORDERED: DIVALPROEX 500 MG TABLET.DR PO SCH (18:00)
[2020-07-12] MEDS: VITAMIN E 100 UNIT PO SCH ×2 (19:49→22:17)
[2020-07-12] MEDS: BENZTROPINE MESYLATE 1 MG TAB PO SCH (21:09)
--- NOTE | 2020-07-12 21:49 | P.HPIM ---
History of Present Illness H&P Date: 07/12/20 Chief Complaint: Congested History of presenting complaint: This is a 49-year-old patient who is a resident at [facility] home. Patient to baseline is independent. Does not communicate. Patient was transferred here from [facility] for testing positive for COVID. Is felt to be developing pneumonia. Patient himself is not able to give any history. Patient has advanced autism. Baseline nonverbal. Chronic stable conditions include normocytic anemia, hypothyroid, seizure activity Admitting review of systems cannot be done as patient is nonverbal Past medical history to include: Autism, pica, epilepsy, hypothyroid Social history: Does not smoke or drink alcohol. [facility] Patient's legal guardian is Azar-patient's brother Family history: Patient cannot state Physical examination: VITAL SIGNS: 97.8, 77, 16, 104/89, 97% on room air-on presentation GENERAL: BMI 24.3, moving all 4 limbs.. EYES: Pupils equal. Conjunctiva normal. HEENT: External appearance of nose and ears normal, oral cavity grossly normal. NECK: JVD not raised; masses not palpable. HEART: First and second heart sounds are normal; no edema. LUNGS: Respiratory rate increased, decreased breath sounds. ABDOMEN: Soft, nontender, liver spleen not palpable, no masses palpable. PSYCH: Unable to assess, patient nonverbal. NEUROLOGICAL: [Cranial nerves grossly intact; no facial asymmetry, moving all 4 limbs LYMPHATICS: No lymph nodes palpable in the axilla and neck INVESTIGATIONS, reviewed in the clinical context: D-dimer 2.3 bun CRP 83.7 Assessment and plan: -COVID 19 pneumonia. Patient's pulse ox on room air is 96%. Patient not in any respiratory distress or tachypneic. Patient replaced on 6 mg of dexamethasone and subcu Lovenox. -Advanced autism, fall precautions -Patient to baseline is nonverbal -Normocytic anemia cause unknown -Hypothyroid, continue with Synthroid - seizure activity., Continue with Depakote and Neurontin Keppra As the patient is doing well on room air pulse ox. We'll watch overnight. If remains stable. Does not desaturate should be able to be discharged in the morning. Will be placed on observation. manager protein informed. Assisted living currently does not have staff for the e evening and will take the patient back in the morning. Past Medical History Additional Past Medical History / Comment(s): autism, pica, epilepsy History of Any Multi-Drug Resistant Organisms: None Reported Past Surgical History: No Surgical Hx Reported Past Anesthesia/Blood Transfusion Reactions: No Reported Reaction Past Psychological History: Unable to Obtain Smoking Status: Never smoker Past Alcohol Use History: Unable to Obtain Past Drug Use History: Unable to Obtain Medications and Allergies Home Medications Medication Instructions Recorded Confirmed Type Benztropine Mesylate 1 mg PO BID@0600,1800 09/25/19 07/12/20 History Divalproex [Depakote] 1,000 mg PO DAILY@0600 09/25/19 07/12/20 History LORazepam [Ativan] 0.5 mg PO BID@1600,219909/25/19 07/12/20 History LORazepam [Ativan] 1 mg PO DAILY PRN 09/25/19 07/12/20 History Levothyroxine Sodium [Synthroid] 25 mcg PO DAILY@59909/25/19 07/12/20 History OXcarbazepine [Oxtellar Xr] 600 mg PO BID@0600,1800 09/25/19 07/12/20 History QUEtiapine [SEROquel] 200 mg PO HS@219909/25/19 07/12/20 History Sodium Chloride Tab 1 gm PO TID@0600,1200,1800 09/25/19 07/12/20 History Vitamin B Complex/Folic Acid 0.4 mg PO DAILY@0600 09/25/19 07/12/20 History [Vitamin B Complex Tablet] Vitamin E 100 unit PO TID@0600,1800,219909/25/19 07/12/20 History Divalproex [Depakote] 500 mg PO DAILY@1800 09/26/19 07/12/20 History Cetirizine HCl [Zyrtec] 10 mg PO HS@219910/12/19 07/12/20 History Docusate [Colace] 100 mg PO BID PRN 10/12/19 07/12/20 History Selsun Blue Sha 1% 1 applic TOPICAL DIRECTED 10/12/19 07/12/20 History bisacodyL [Bisacodyl] 10 mg RECTAL Q72H PRN 10/12/19 07/12/20 History Gabapentin [Neurontin] 300 mg PO QID #40 cap 10/22/19 07/12/20 Rx Albuterol Nebulized [Ventolin 2.5 mg INHALATION RT-Q8H PRN 07/12/20 07/12/20 History Nebulized] Albuterol Sulfate [Proair Hfa] 2 puff INHALATION RT-QID PRN 07/12/20 07/12/20 History Cholecalciferol (Vitamin D3) 125 mcg PO DAILY@1200 07/12/20 07/12/20 History [Vitamin D3 (5000 Iu)] Divalproex [Depakote] 250 mg PO DAILY@1800 07/12/20 07/12/20 History Ferrous Sulfate [Feosol] 325 mg PO DAILY@1600 07/12/20 07/12/20 History Magnesium Hydroxide [Milk of 2,400 mg PO DAILY PRN 07/12/20 07/12/20 History Magnesia] Psyllium Husk (with Sugar) 6 gm PO DAILY@1800 07/12/20 07/12/20 History [Metamucil Powder] Tamsulosin [Flomax] 0.4 mg PO HS@2200 07/12/20 07/12/20 History levETIRAcetam [Keppra] 250 mg PO BID@0600,1800 07/12/20 07/12/20 History Allergies Allergy/AdvReac Type Severity Reaction Status Date / Time brivaracetam [From Briviact] Allergy Unknown Verified 07/12/20 08:54 escitalopram [From Lexapro] Allergy Unknown Verified 07/12/20 08:54 fluoxetine [From Prozac] Allergy Unknown Verified 07/12/20 08:54 haloperidol [From Haldol] Allergy Unknown Verified 07/12/20 08:54 lacosamide [From Vimpat] Allergy Unknown Verified 07/12/20 08:54 methylphenidate Allergy Unknown Verified 07/12/20 08:54 [From Ritalin] Penicillins Allergy Unknown Verified 07/12/20 08:54 phenobarbital Allergy Unknown Verified 07/12/20 08:54 phenytoin [From Dilantin] Allergy Unknown Verified 07/12/20 08:54 sulfamethoxazole Allergy Unknown Verified 07/12/20 08:54 [From Bactrim] trimethoprim [From Bactrim] Allergy Unknown Verified 07/12/20 08:54 Physical Exam Vitals: Vital Signs Temp Pulse Resp BP Pulse Ox 07/12/20 06:19 99.6 F 82 18 132/77 99 07/12/20 00:59 97.8 F 77 16 104/89 97 Intake and Output 07/11/20 07/12/20 07/12/20 22:59 06:59 14:59 Other: Weight 72.575 kg
[2020-07-12] MEDS ORDERED: TAMSULOSIN 0.4 MG CAP.ER.24H PO SCH (22:00)
[2020-07-12] MEDS ORDERED: QUEtiapine 200 MG TAB PO SCH (22:00)
[2020-07-13 05:16] LABS: Basophils % (A) 0 %; Eosinophils % (A) 0 %; HCT 34.5 % (39.0-53.0); HGB 12.2 gm/dL (13.0-17.5); Lymphocytes # (A) 1.2 k/uL (1.0-4.8); Lymphocytes % (A) 25 %; MCH 30.5 pg (25.0-35.0); MCHC 35.2 g/dL (31.0-37.0); MCV 86.5 fL (80.0-100.0); Mean Platelet Volume 7.4; Monocytes # (A) 0.6 k/uL (0-1.0); Monocytes % (A) 14 %; Neutrophils # (A) 2.8 k/uL (1.3-7.7); Neutrophils % (A) 60 %; Platelet Count 137 k/uL (150-450); RBC 3.99 m/uL (4.30-5.90); RDW 12.8 % (11.5-15.5); WBC 4.7 k/uL (3.8-10.6)
[2020-07-13 05:33] LABS: ALT 15 U/L (4-49); AST 24 U/L (17-59); African American GFR (CKD) >90 (>60 ml/min/1.73 sqM); Albumin 3.9 g/dL (3.5-5.0); Albumin/Globulin Ratio 1.4; Alkaline Phosphatase 65 U/L (38-126); Anion Gap 9 mmol/L; Blood Urea Nitrogen 24 mg/dL (9-20); C Reactive Protein 84.7 mg/L (<10.0); Calcium 8.9 mg/dL (8.4-10.2); Carbon Dioxide 26 mmol/L (22-30); Chloride 102 mmol/L (98-107); Globulin 2.8 g/dL; Glucose 107 mg/dL (74-99); Magnesium 2.1 mg/dL (1.6-2.3); Non-African American GFR(CKD) >90 (>60 ml/min/1.73 sqM); Phosphorus 4.7 mg/dL (2.5-4.5); Potassium 4.6 mmol/L (3.5-5.1); Sodium 137 mmol/L (137-145); Total Bilirubin 0.4 mg/dL (0.2-1.3); Total Protein 6.7 g/dL (6.3-8.2)
[2020-07-13] MEDS: LEVOTHYROXINE 25 MCG TAB PO SCH (05:34)
[2020-07-13] MEDS ORDERED: NON FORMULARY DRUG (Vitamin B Complex/Folic Acid [Vitamin B Complex Tablet] 0.4 MG Tablet) PO SCH (06:00)
[2020-07-13] MEDS: DIVALPROEX 500 MG TABLET.DR PO SCH (06:12)
[2020-07-13] MEDS: levETIRAcetam 250 MG TAB PO SCH (06:12)
[2020-07-13] MEDS: BENZTROPINE MESYLATE 1 MG TAB PO SCH (06:13)
[2020-07-13] MEDS: SODIUM CHLORIDE TAB 1 GM TAB PO SCH (06:13)
[2020-07-13] MEDS: VITAMIN E 100 UNIT PO SCH (06:14)
[2020-07-13] MEDS: OXCARBAZEPINE 600 MG PO SCH (06:14)
[2020-07-13 09:30] VITALS: RESP 16
[2020-07-13] MEDS: ENOXAPARIN 40 MG/0.4 ML SYRINGE SQ SCH (11:28)
[2020-07-13] MEDS: dexAMETHasone 2 MG TAB PO SCH (11:28)
[2020-07-13] MEDS: GABAPENTIN 300 MG CAP PO SCH (11:28)
[2020-07-13 13:33] VITALS: BP 111/71; PULSE 68; TEMP 98
--- NOTE | 2020-07-13 22:58 | P.DS ---
Providers Date of admission: 07/12/20 02:59 Expected date of discharge: 07/13/20 Attending physician: Randy Lawrence Primary care physician: Gr[facility] Course: Chief Complaint: Congested History of presenting complaint: This is a 49-year-old patient who is a resident at [facility] home. Patient to baseline is independent. Does not communicate. Patient was transferred here from [facility] for testing positive for COVID. Is felt to be developing pneumonia. Patient himself is not able to give any history. Patient has advanced autism. Baseline nonverbal. Chronic stable conditions include normocytic anemia, hypothyroid, seizure activity Admitted with COVID 19 pneumonia. Pulse ox is good on room air 9596%. No respiratory symptoms as such. No further fever. Put on dexamethasone and subcu Lovenox. Today-patient appears to be comfortable. No fever. Stable for DC. Past medical history to include: Autism, pica, epilepsy, hypothyroid Social history: Does not smoke or drink alcohol. Resident of [facility] Patient's legal guardian is Azar-patient's brother Family history: Patient cannot state Physical examination: Vitals: 98, 68, 16, 111/71, 99% room air GENERAL: BMI 24.3, moving all 4 limbs.. EYES: Pupils equal. Conjunctiva normal. HEENT: External appearance of nose and ears normal, oral cavity grossly normal. NECK: JVD not raised; masses not palpable. HEART: First and second heart sounds are normal; no edema. LUNGS: Respiratory rate increased, decreased breath sounds. ABDOMEN: Soft, nontender, liver spleen not palpable, no masses palpable. PSYCH: Unable to assess, patient nonverbal. INVESTIGATIONS, reviewed in the clinical context: July 13: WBC 4.7 d-dimer 1.84 potassium 4.6 creatinine 0.8 date CRP 84.7 D-dimer 2.3 bun CRP 83.7 Assessment and plan: -COVID 19 pneumonia. Patient's pulse ox on room air is 96%. Patient not in any respiratory distress or tachypneic. Patient be discharged on complete a course of Decadron and also xarelto. -Advanced autism, fall precautions -Patient to baseline is nonverbal -Normocytic anemia cause unknown -Hypothyroid, continue with Synthroid - seizure activity., Continue with Depakote and Neurontin Keppra Disposition: [facility] Patient Condition at Discharge: Stable Plan - Discharge Summary New Discharge Prescriptions: New dexAMETHasone [Hexadrol] 6 mg PO DAILY #7 tablet Rivaroxaban [Xarelto] 2.5 mg PO DAILY #30 tablet Continue Benztropine Mesylate 1 mg PO BID@0600,1800 Levothyroxine Sodium [Synthroid] 25 mcg PO DAILY@0600 LORazepam [Ativan] 1 mg PO DAILY PRN PRN Reason: Seizures Vitamin E 100 unit PO TID@0600,1800,2200 Sodium Chloride Tab 1 gm PO TID@0600,1200,1800 QUEtiapine [SEROquel] 200 mg PO HS@2200 OXcarbazepine [Oxtellar Xr] 600 mg PO BID@0600,1800 LORazepam [Ativan] 0.5 mg PO BID@1600,2200 Vitamin B Complex/Folic Acid [Vitamin B Complex Tablet] 0.4 mg PO DAILY@0600 Divalproex [Depakote] 1,000 mg PO DAILY@0600 Divalproex [Depakote] 500 mg PO DAILY@1800 Selsun Blue Sha 1% 1 applic TOPICAL DIRECTED bisacodyL [Bisacodyl] 10 mg RECTAL Q72H PRN PRN Reason: Constipation Cetirizine HCl [Zyrtec] 10 mg PO HS@2200 Docusate [Colace] 100 mg PO BID PRN PRN Reason: Constipation Gabapentin [Neurontin] 300 mg PO QID #40 cap Magnesium Hydroxide [Milk of Magnesia] 2,400 mg PO DAILY PRN PRN Reason: Constipation Albuterol Sulfate [Proair Hfa] 2 puff INHALATION RT-QID PRN PRN Reason: Shortness Of Breath Albuterol Nebulized [Ventolin Nebulized] 2.5 mg INHALATION RT-Q8H PRN PRN Reason: Shortness Of Breath Tamsulosin [Flomax] 0.4 mg PO HS@2200 Cholecalciferol (Vitamin D3) [Vitamin D3 (5000 Iu)] 125 mcg PO DAILY@1200 Psyllium Husk (with Sugar) [Metamucil Powder] 6 gm PO DAILY@1800 levETIRAcetam [Keppra] 250 mg PO BID@0600,1800 Ferrous Sulfate [Iron (65 MG Elemental)] 325 mg PO DAILY@1600 Divalproex [Depakote] 250 mg PO DAILY@1800 Discharge Medication List Benztropine Mesylate 1 mg PO BID@0600,1800 09/25/19 [History] Divalproex [Depakote] 1,000 mg PO DAILY@59909/25/19 [History] LORazepam [Ativan] 0.5 mg PO BID@1600,22009/25/19 [History] LORazepam [Ativan] 1 mg PO DAILY PRN 09/25/19 [History] Levothyroxine Sodium [Synthroid] 25 mcg PO DAILY@59909/25/19 [History] OXcarbazepine [Oxtellar Xr] 600 mg PO BID@0600,1800 09/25/19 [History] QUEtiapine [SEROquel] 200 mg PO HS@219909/25/19 [History] Sodium Chloride Tab 1 gm PO TID@0600,1200,179909/25/19 [History] Vitamin B Complex/Folic Acid [Vitamin B Complex Tablet] 0.4 mg PO DAILY@59909/25/19 [History] Vitamin E 100 unit PO TID@0600,1800,219909/25/19 [History] Divalproex [Depakote] 500 mg PO DAILY@179909/26/19 [History] Cetirizine HCl [Zyrtec] 10 mg PO HS@219910/12/19 [History] Docusate [Colace] 100 mg PO BID PRN 10/12/19 [History] Selsun Blue Sha 1% 1 applic TOPICAL DIRECTED 10/12/19 [History] bisacodyL [Bisacodyl] 10 mg RECTAL Q72H PRN 10/12/19 [History] Gabapentin [Neurontin] 300 mg PO QID #40 cap 10/22/19 [Rx] Albuterol Nebulized [Ventolin Nebulized] 2.5 mg INHALATION RT-Q8H PRN 07/12/20 [History] Albuterol Sulfate [Proair Hfa] 2 puff INHALATION RT-QID PRN 07/12/20 [History] Cholecalciferol (Vitamin D3) [Vitamin D3 (5000 Iu)] 125 mcg PO DAILY@1200 07/12/20 [History] Divalproex [Depakote] 250 mg PO DAILY@1800 07/12/20 [History] Ferrous Sulfate [Iron (65 MG Elemental)] 325 mg PO DAILY@1600 07/12/20 [History] Magnesium Hydroxide [Milk of Magnesia] 2,400 mg PO DAILY PRN 07/12/20 [History] Psyllium Husk (with Sugar) [Metamucil Powder] 6 gm PO DAILY@1800 07/12/20 [History] Tamsulosin [Flomax] 0.4 mg PO HS@2200 07/12/20 [History] levETIRAcetam [Keppra] 250 mg PO BID@0600,1800 07/12/20 [History] Rivaroxaban [Xarelto] 2.5 mg PO DAILY #30 tablet 07/13/20 [Rx] dexAMETHasone [Hexadrol] 6 mg PO DAILY #7 tablet 07/13/20 [Rx] Follow up Appointment(s)/Referral(s): Grayson Diego MD [Primary Care Provider] - 1-2 days Patient Instructions/Handouts: Coronavirus Disease 2019 (COVID-19) Activity/Diet/Wound Care/Special Instructions: covid 19 dc instructiions Discharge Disposition: HOME WITH HOME HEALTH SERVICES
== END 2020-07-13 14:17 | disposition home health service (06) ==
LOC: EC 00:39 → 4SSUR 02:59 → INTOOBSV 02:59 → 4SSUR 13:29 → 6NMEDSUR 22:12
PROVIDERS: ADMIT Hospitalist; ATTEND Hospitalist
DX: U07.1 COVID-19 (principal); J12.82 Pneumonia due to coronavirus disease 2019; F84.0 Autistic disorder; D64.9 Anemia, unspecified; G40.909 Epilepsy, unspecified, not intractable, without status epilepticus; E03.9 Hypothyroidism, unspecified; F50.89 Other specified eating disorder; Z68.24 Body mass index [BMI] 24.0-24.9, adult; I51.7 Cardiomegaly; Z79.890 Hormone replacement therapy; Z79.899 Other long term (current) drug therapy; Z88.0 Allergy status to penicillin; Z88.1 Allergy status to other antibiotic agents; Z88.2 Allergy status to sulfonamides; Z88.8 Allergy status to other drugs, medicaments and biological substances
CPT/HCPCS: 96361; 96372 ×2; 96360; 99285; 94640; 85379 ×2; 80053; 83735; 84100; 85025; 86140 ×2; 71045; G0378 ×3; J1650 ×2; J8540 ×2

== ENCOUNTER 2021-09-02 08:57 | Observation (INO) | payer MEDICARE, OTHER ==
[2021-09-02] MEDS ORDERED: ACETAMINOPHEN SUPPOSITORY 650 MG SUPP RECTAL STA ×2 (09:41→19:15)
[2021-09-02 09:50] LABS: Basophils % (A) 1 %; Eosinophils # (A) 0.1 k/uL (0-0.7); Eosinophils % (A) 1 %; HCT 38.1 % (39.0-53.0); HGB 12.7 gm/dL (13.0-17.5); Lymphocytes # (A) 0.7 k/uL (1.0-4.8); Lymphocytes % (A) 14 %; MCH 29.2 pg (25.0-35.0); MCHC 33.5 g/dL (31.0-37.0); MCV 87.2 fL (80.0-100.0); Monocytes # (A) 0.5 k/uL (0-1.0); Monocytes % (A) 9 %; Neutrophils # (A) 3.8 k/uL (1.3-7.7); Neutrophils % (A) 73 %; Platelet Count 189 k/uL (150-450); RBC 4.37 m/uL (4.30-5.90); RDW 14.2 % (11.5-15.5); WBC 5.2 k/uL (3.8-10.6)
--- NOTE | 2021-09-02 10:01 | ED ---
Seizure HPI - General Chief Complaint: Seizure Stated Complaint: seizures Time Seen by Provider: 09/02/21 09:04 Source: EMS, RN notes reviewed, Caregiver Mode of arrival: EMS Limitations: altered mental status, physical limitation - History of Present Illness Initial Comments: This a 51-year-old male presents emergency department via EMS from [facility] home for evaluation of multiple seizures. Patient reported 5 seizures and which staff had to give the patient Diastat. Patient is on medications for seizures. Patient has not missed any doses. Patient recently has been diagnosed with COVID-19. Patient had mild cough congestion fever. Patient is nonverbal does not provide any information on information given by caregiver. - Related Data Home Medications Medication Instructions Recorded Confirmed Benztropine Mesylate 1 mg PO BID@0800,199909/25/19 09/02/21 LORazepam [Ativan] 0.5 mg PO BID@1600,219909/25/19 09/02/21 LORazepam [Ativan] 1 mg PO DAILY PRN 09/25/19 09/02/21 Levothyroxine Sodium [Synthroid] 25 mcg PO DAILY@0800 09/25/19 09/02/21 OXcarbazepine [Oxtellar Xr] 600 mg PO BID@0800,199909/25/19 09/02/21 Vitamin B Complex/Folic Acid 0.4 mg PO DAILY@0800 09/25/19 09/02/21 [Vitamin B Complex Tablet] Vitamin E 100 unit PO TID@0800,1600,199909/25/19 09/02/21 Docusate [Colace] 100 mg PO BID@0800,199910/12/19 09/02/21 Selsun Blue Sha 1% 1 applic TOPICAL SUWESA@199910/12/19 09/02/21 bisacodyL 10 mg RECTAL Q72H PRN 10/12/19 09/02/21 Cholecalciferol (Vitamin D3) 125 mcg PO DAILY@1600 07/12/20 09/02/21 [Vitamin D3 (5000 Iu)] Magnesium Hydroxide [Milk of 2,400 mg PO DAILY PRN 07/12/20 09/02/21 Magnesia] Tamsulosin [Flomax] 0.4 mg PO HS@2200 07/12/20 09/02/21 Acetaminophen Tab [Tylenol Tab] 1,000 mg PO Q8H PRN 09/02/21 09/02/21 Divalproex Sodium [Depakote] 1,000 mg PO DAILY@0800 09/02/21 09/02/21 Divalproex Sodium [Depakote] 750 mg PO HS@199909/02/21 09/02/21 Famotidine [Pepcid] 20 mg PO BID@0800,199909/02/21 09/02/21 Fluoride (Sodium) [Sodium Fluoride 1 applic DENTAL HS@199909/02/21 09/02/21 5000 Plus] Gabapentin [Neurontin] 300 mg PO BID@0800,199909/02/21 09/02/21 Guaifenesin/Dextromethorphan 1 cap PO Q6H PRN 09/02/21 09/02/21 [Coricidin Hbp Softgel] Lactulose 20 gm PO Q48H PRN 09/02/21 09/02/21 Loratadine 10 mg PO DAILY@0800 09/02/21 09/02/21 Melatonin 3 mg PO HS@159909/02/21 09/02/21 Menthol-Zinc Oxide Oint 1 applic TOPICAL DAILY@0800 09/02/21 09/02/21 [Calmoseptine Ointment] QUEtiapine [SEROquel] 100 mg PO BID@0800,199909/02/21 09/02/21 Sennosides [Senna] 17.2 mg PO BID@0800,199909/02/21 09/02/21 diazePAM [Diastat] 10 mg RECTAL ONCE PRN 09/02/21 09/02/21 levETIRAcetam [Keppra] 500 mg PO BID@0800,199909/02/21 09/02/21 Allergies Allergy/AdvReac Type Severity Reaction Status Date / Time brivaracetam [From Briviact] Allergy Unknown Verified 09/02/21 10:20 escitalopram [From Lexapro] Allergy Unknown Verified 09/02/21 10:20 fluoxetine [From Prozac] Allergy Unknown Verified 09/02/21 10:20 haloperidol [From Haldol] Allergy Unknown Verified 09/02/21 10:20 lacosamide [From Vimpat] Allergy Unknown Verified 09/02/21 10:20 methylphenidate Allergy Unknown Verified 09/02/21 10:20 [From Ritalin] Penicillins Allergy Unknown Verified 09/02/21 10:20 phenobarbital Allergy Unknown Verified 09/02/21 10:20 phenytoin [From Dilantin] Allergy Unknown Verified 09/02/21 10:20 sulfamethoxazole Allergy Unknown Verified 09/02/21 10:20 [From Bactrim] trimethoprim [From Bactrim] Allergy Unknown Verified 09/02/21 10:20 oxcarbazepine AdvReac Unknown Verified 09/02/21 10:20 [From Trileptal] Review of Systems ROS Statement: Those systems with pertinent positive or pertinent negative responses have been documented in the HPI. ROS Other: All systems not noted in ROS Statement are negative. Past Medical History Past Medical History: Seizure Disorder Additional Past Medical History / Comment(s): autism, pica, epilepsy History of Any Multi-Drug Resistant Organisms: ESBL Date of last positivie culture/infection: 10/17/20 ESBL-Proteus MDRO Source:: ESBL-Urine Past Surgical History: No Surgical Hx Reported Past Anesthesia/Blood Transfusion Reactions: No Reported Reaction Past Psychological History: Unable to Obtain Smoking Status: Never smoker Past Alcohol Use History: Unable to Obtain Past Drug Use History: Unable to Obtain General Exam Limitations: altered mental status, physical limitation Head exam: Present: atraumatic, normocephalic, normal inspection Eye exam: Present: normal appearance, PERRL, EOMI. Absent: scleral icterus, conjunctival injection, periorbital swelling ENT exam: Present: normal exam, normal oropharynx, mucous membranes moist Neck exam: Present: normal inspection, full ROM. Absent: tenderness, meningismus, lymphadenopathy Respiratory exam: Present: normal lung sounds bilaterally. Absent: respiratory distress, wheezes, rales, rhonchi, stridor Cardiovascular Exam: Present: regular rate, normal rhythm, normal heart sounds. Absent: systolic murmur, diastolic murmur, rubs, gallop, clicks Neurological exam: Present: alert, oriented X3 Skin exam: Present: warm, dry, intact, normal color. Absent: rash Course Vital Signs 09/02/21 09/02/21 09/02/21 08:58 09:02 11:03 Temperature 99.8 F H 101.2 F H Pulse Rate 93 85 Respiratory 18 20 Rate Blood Pressure 143/90 118/75 O2 Sat by Pulse 96 96 Oximetry Medical Decision Making - Medical Decision Making 51-year-old presented for multiple seizures. Patient had more than 5 seconds of seizures morning. Patient was given rectal medications. Patient CT does not reveal any acute changes. Patient be admitted for recurrent seizures,valporic acid toxicity, COVID-19. - Lab Data Result diagrams: 09/02/21 09:34 09/02/21 09:34 Lab Results 09/02/21 09/02/21 Range/Units 09:34 09:34 WBC 5.2 (3.8-10.6) k/uL RBC 4.37 (4.30-5.90) m/uL Hgb 12.7 L (13.0-17.5) gm/dL Hct 38.1 L (39.0-53.0) % MCV 87.2 (80.0-100.0) fL MCH 29.2 (25.0-35.0) pg MCHC 33.5 (31.0-37.0) g/dL RDW 14.2 (11.5-15.5) % Plt Count 189 (150-450) k/uL MPV 7.0 Neutrophils % 73 % Lymphocytes % 14 % Monocytes % 9 % Eosinophils % 1 % Basophils % 1 % Neutrophils # 3.8 (1.3-7.7) k/uL Lymphocytes # 0.7 L (1.0-4.8) k/uL Monocytes # 0.5 (0-1.0) k/uL Eosinophils # 0.1 (0-0.7) k/uL Basophils # 0.0 (0-0.2) k/uL Sodium 140 (137-145) mmol/L Potassium 4.4 (3.5-5.1) mmol/L Chloride 103 (98-107) mmol/L Carbon Dioxide 27 (22-30) mmol/L Anion Gap 10 mmol/L BUN 20 (9-20) mg/dL Creatinine 1.16 (0.66-1.25) mg/dL Est GFR (CKD-EPI)AfAm 84 (>60 ml/min/1.73 sqM) Est GFR (CKD-EPI)NonAf 73 (>60 ml/min/1.73 sqM) Glucose 101 H (74-99) mg/dL Calcium 9.2 (8.4-10.2) mg/dL Magnesium 1.6 (1.6-2.3) mg/dL Total Bilirubin 0.5 (0.2-1.3) mg/dL AST 25 (17-59) U/L ALT 20 (4-49) U/L Alkaline Phosphatase 71 (38-126) U/L Total Protein 7.5 (6.3-8.2) g/dL Albumin 4.1 (3.5-5.0) g/dL Valproic Acid 130.1 H* ug/mL Disposition Clinical Impression: Intractable seizure disorder, COVID-19, Valproic acid toxicity Disposition: ADMITTED IP TO THIS [facility] Instructions (If sedation given, give patient instructions): Seizure/Epilepsy Discharge Instructions & Follow-Up Referrals: Russell Smith MD [Primary Care Provider] - 1-2 days Time of Disposition: 12:13
[2021-09-02 10:02] LABS: Albumin 4.1 g/dL (3.5-5.0); Calcium 9.2 mg/dL (8.4-10.2); Magnesium 1.6 mg/dL (1.6-2.3); Potassium 4.4 mmol/L (3.5-5.1); Total Bilirubin 0.5 mg/dL (0.2-1.3); Total Protein 7.5 g/dL (6.3-8.2)
--- NOTE | 2021-09-02 10:07 | CT ---
EXAMINATION TYPE: CT brain wo con DATE OF EXAM: 09/02/2021 COMPARISON: CT dated 10/22/2019 HISTORY: seizure CT DLP: 1129.4 mGycm Automated exposure control for dose reduction was used. TECHNIQUE: CT scan of the brain is performed without IV contrast administration. FINDINGS: Brain volume loss changes, more than expected for the patient's age. No acute intracranial hemorrhage . No gross acute cortical infarct. No midline shift, herniation or ventriculomegaly. Unremarkable basal cisterns, sella and CP angles. No gross space-occupying lesion, vasogenic edema or mass effect. Unremarkable orbits. Mucosal thickening of the left maxillary sinus and ethmoid air cells. Clear mast oid air cells. Unremarkable calvarial bones. IMPRESSION: No acute intracranial abnormality or gross space-occupying lesion by this nonenhanced CT scan. Brain volume loss changes more than expected for the patient's age. Paranasal sinus disease as descri bed above. If seizures persist, further MRI assessment can be considered.
[2021-09-02 10:21] LABS: Valproic Acid (Depakene) 130.1 ug/mL
[2021-09-02] MEDS ORDERED: NALOXONE 0.4 MG/ML 1 ML VIAL IV PRN (12:23)
[2021-09-02] MEDS ORDERED: MAGNESIUM HYDROXIDE 2,400 MG/10 ML CUP PO PRN (12:24)
[2021-09-02] MEDS ORDERED: ACETAMINOPHEN TAB 500 MG TAB PO PRN (12:24)
[2021-09-02] MEDS ORDERED: LORazepam 1 MG TAB PO PRN (12:24)
[2021-09-02] MEDS ORDERED: LORazepam 2 MG/ML INJ IV PRN (12:26)
--- NOTE | 2021-09-02 13:38 | P.HPIM ---
History of Present Illness H&P Date: 09/02/21 Chief Complaint: Seizures This is a 51-year-old patient, follows with visiting physicians Dr. Smith. History is obtained by the caregiver Marianna at the bedside. Patient is a resident of [facility]. At the baseline able to walk around. Nonverbal. Can feed himself. Sometimes patient will yell and make tractor-like noises. He has underlying history of autism, severe mental retardation, OCD and seizure disorder. He does hear bruits. Patient's neurologist is Dr. Stephens. Patient developed a fever yesterday. Of 101. Was taken out of the [place] ER she was diagnosed with COVID. To discharge to home. Patient only received 1 dose of Moderna as decided by his POA. That is his sister Azar Saldaña. Today patient had about 5 episodes of seizures. Staff at the [facility] didn't give the patientDiastat. Currently the patient's post ictal. Laying in bed. Lethargic. Review of systems: See above. And a baseline patient nonverbal. Past medical history to include: Autism, severe mental retardation, OCD, seizure disorder, Social history: Lives at [facility]. Patient's guardian is his sister Azar Saldaña. No history of smoking alcohol Family history: Patient cannot tell Physical examination: VITAL SIGNS: 101.2, 85, 20, 118/75, 96% room air GENERAL: BMI 25.8, laying in bed, lethargic. EYES: Pupils equal. Conjunctiva normal. HEENT: External appearance of nose and ears normal, oral cavity grossly normal. NECK: JVD not raised; masses not palpable. HEART: First and second heart sounds are normal; no edema. LUNGS:[ Respiratory rate normal; decreased breath sounds. ABDOMEN: Soft, nontender, liver spleen not palpable, no masses palpable. PSYCH: Patient lethargic, unable to assessl. MUSCULOSKELETAL:No Clubbing/cyanosis;muscles-grossly intact NEUROLOGICAL: Cranial nerves grossly intact; no facial asymmetry, power and sensation grossly intact. LYMPHATICS: No lymph nodes palpable in the axilla and neck INVESTIGATIONS, reviewed in the clinical context: White count 5.2 hemoglobin 12.7 platelets 49 potassium 4.4 creatinine 1.16 Valproic acid 130.1 EKG tracing personally reviewed by me-normal sinus rhythm. Assessment and plan: -Status epilepticus in a patient with known seizures. Seizure precaution. Neurology consulted. Continue Depakote, Neurontin, CARBAMAZEPINE, Keppra. -Valproic acid toxicity Follow with neurology -Acute COVID-19 in a patient received only 1 dose of Moderna vaccine. Patient's pulse ox is good on room air. Supportive care. -Severe mental retardation from underlying autism -Obsessive-compulsive disorder -Legal guardian: Sister: Azar Saldaña Seizure precautions. Antiseizure medications per neurology. Other home medications to be resumed. Supportive medications for COVID-19 including vitamin C vitamin D zinc. Care was discussed with the caregiver at the bedside. Past Medical History Past Medical History: Seizure Disorder Additional Past Medical History / Comment(s): autism, pica, epilepsy History of Any Multi-Drug Resistant Organisms: ESBL Date of last positivie culture/infection: 10/17/20 ESBL-Proteus MDRO Source:: ESBL-Urine Past Surgical History: No Surgical Hx Reported Past Anesthesia/Blood Transfusion Reactions: No Reported Reaction Past Psychological History: Unable to Obtain Smoking Status: Never smoker Past Alcohol Use History: Unable to Obtain Past Drug Use History: Unable to Obtain Medications and Allergies Home Medications Medication Instructions Recorded Confirmed Type Benztropine Mesylate 1 mg PO BID@0800,199909/25/19 09/02/21 History LORazepam [Ativan] 0.5 mg PO BID@1600,2200 09/25/19 09/02/21 History LORazepam [Ativan] 1 mg PO DAILY PRN 09/25/19 09/02/21 History Levothyroxine Sodium [Synthroid] 25 mcg PO DAILY@0800 09/25/19 09/02/21 History OXcarbazepine [Oxtellar Xr] 600 mg PO BID@0800,199909/25/19 09/02/21 History Vitamin B Complex/Folic Acid 0.4 mg PO DAILY@0800 09/25/19 09/02/21 History [Vitamin B Complex Tablet] Vitamin E 100 unit PO TID@0800,1600,199909/25/19 09/02/21 History Docusate [Colace] 100 mg PO BID@0800,199910/12/19 09/02/21 History Selsun Blue Sha 1% 1 applic TOPICAL SUWESA@199910/12/19 09/02/21 History bisacodyL 10 mg RECTAL Q72H PRN 10/12/19 09/02/21 History Cholecalciferol (Vitamin D3) 125 mcg PO DAILY@159907/12/20 09/02/21 History [Vitamin D3 (5000 Iu)] Magnesium Hydroxide [Milk of 2,400 mg PO DAILY PRN 07/12/20 09/02/21 History Magnesia] Tamsulosin [Flomax] 0.4 mg PO HS@219907/12/20 09/02/21 History Acetaminophen Tab [Tylenol Tab] 1,000 mg PO Q8H PRN 09/02/21 09/02/21 History Divalproex Sodium [Depakote] 1,000 mg PO DAILY@79909/02/21 09/02/21 History Divalproex Sodium [Depakote] 750 mg PO HS@199909/02/21 09/02/21 History Famotidine [Pepcid] 20 mg PO BID@0800,199909/02/21 09/02/21 History Fluoride (Sodium) [Sodium Fluoride 1 applic DENTAL HS@199909/02/21 09/02/21 History 5000 Plus] Gabapentin [Neurontin] 300 mg PO BID@0800,199909/02/21 09/02/21 History Guaifenesin/Dextromethorphan 1 cap PO Q6H PRN 09/02/21 09/02/21 History [Coricidin Hbp Softgel] Lactulose 20 gm PO Q48H PRN 09/02/21 09/02/21 History Loratadine 10 mg PO DAILY@0809/02/21 09/02/21 History Melatonin 3 mg PO HS@159909/02/21 09/02/21 History Menthol-Zinc Oxide Oint 1 applic TOPICAL DAILY@79909/02/21 09/02/21 History [Calmoseptine Ointment] QUEtiapine [SEROquel] 100 mg PO BID@799,199909/02/21 09/02/21 History Sennosides [Senna] 17.2 mg PO BID@0800,199909/02/21 09/02/21 History diazePAM [Diastat] 10 mg RECTAL ONCE PRN 09/02/21 09/02/21 History levETIRAcetam [Keppra] 500 mg PO BID@0800,199909/02/21 09/02/21 History Allergies Allergy/AdvReac Type Severity Reaction Status Date / Time brivaracetam [From Briviact] Allergy Unknown Verified 09/02/21 10:20 escitalopram [From Lexapro] Allergy Unknown Verified 09/02/21 10:20 fluoxetine [From Prozac] Allergy Unknown Verified 09/02/21 10:20 haloperidol [From Haldol] Allergy Unknown Verified 09/02/21 10:20 lacosamide [From Vimpat] Allergy Unknown Verified 09/02/21 10:20 methylphenidate Allergy Unknown Verified 09/02/21 10:20 [From Ritalin] Penicillins Allergy Unknown Verified 09/02/21 10:20 phenobarbital Allergy Unknown Verified 09/02/21 10:20 phenytoin [From Dilantin] Allergy Unknown Verified 09/02/21 10:20 sulfamethoxazole Allergy Unknown Verified 09/02/21 10:20 [From Bactrim] trimethoprim [From Bactrim] Allergy Unknown Verified 09/02/21 10:20 oxcarbazepine AdvReac Unknown Verified 09/02/21 10:20 [From Trileptal] Physical Exam Vitals: Vital Signs Temp Pulse Resp BP Pulse Ox 09/02/21 11:03 101.2 F H 85 20 118/75 96 09/02/21 09:02 93 18 143/90 96 09/02/21 08:58 99.8 F H Intake and Output 09/01/21 09/02/21 09/02/21 22:59 06:59 14:59 Other: Weight 81.647 kg Results CBC & Chem 7: 09/02/21 09:34 09/02/21 09:34 Labs: Abnormal Lab Results - Last 24 Hours (Table) 09/02/21 09/02/21 Range/Units 09:34 09:34 Hgb 12.7 L (13.0-17.5) gm/dL Hct 38.1 L (39.0-53.0) % Lymphocytes # 0.7 L (1.0-4.8) k/uL Glucose 101 H (74-99) mg/dL Valproic Acid 130.1 H* ug/mL
[2021-09-02] MEDS: ASCORBIC ACID 500 MG TAB PO SCH ×2 (13:57→22:27)
[2021-09-02] MEDS: ZINC SULFATE 220 MG CAP PO SCH (13:57)
--- NOTE | 2021-09-02 14:29 | P.CNNES ---
History of Present Illness Consult date: 09/02/21 Requesting physician: Jose Russell Reason for Consult: multiple seizure History of Present Illness: This is a 51-year-old gentleman with history of epilepsy, autism, developemental delay, non-verbal at baseline, OCD who presented emergency department via EMS because of multiple seizure. History was obtained from his healthcare insurance sales agent from his [facility] home (who is at bedside). It seems that the patient had the multiple seizures from the [facility] home. And had a total of 5 seizures as a result the patient was given Diastat. His seizures were generalized tonic-clonic seizures lasting about 1-2 minutes. It seems the patient was initially diagnosed with COVID-19 infection and tested positive yesterday and had mild cough, congestion and fever. He's been compliant taking his antiepileptic drugs. Patient is on Depakote 1000 mg daily, 750 mg daily at bedtime, Keppra 500 mg 1 tablet twice a day, Oxtellar 600 mg 1 tablet twice a day. Diastat 10 mg rectally when necessary. Patient follows-up with Dr. Griffith for his neurological management. He was last seen by his neurologist within the last one month and none of his medica tion were changed. He has been same medications for a while. Baseline is he uses a wheel chair PRN. Otherwise as stated above is non-verbal but would make nonsensical voices and does not follow commands but sometimes if he told to go to bathroom he would. Some of the workup in the hospital consisted of: Initial vital signs is a blood pressure of 143/90, heart rate of 93, respiratory of 18, temperature of 99.8 Fahrenheit axillary the repeat is 101.2 Fahrenheit axillary, pulse ox of 96% room air. White blood cells 5.2 thousand which is within normal limits. The chemistry panel is within normal limits Valproic acid is 130.1 and the therapeutic range is supposed to be between 5220 and a possible toxic level is a above 100. Given the head is reported as no acute intracranial abnormality gross occupying lesion by this nonenhanced head computed tomography scan. Brain volume loss change wasn't expected for the patient's age. Paranasal sinus disease as described above. I personally reviewed this to the head and I agree with the report. Of note patient was last seen by Dr. Hirsch (neuro-hospitalist) on 10/01/2019 for his seizures and had a breakthrough seizure at that time. 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 Please for to his note for further details. Review of Systems Review of system is limited but the prone positive and negative as per HPI. Past Medical History Past Medical History: Seizure Disorder Additional Past Medical History / Comment(s): autism, pica, epilepsy History of Any Multi-Drug Resistant Organisms: ESBL Date of last positivie culture/infection: 10/17/20 ESBL-Proteus MDRO Source:: ESBL-Urine Past Surgical History: No Surgical Hx Reported Past Anesthesia/Blood Transfusion Reactions: No Reported Reaction Past Psychological History: Unable to Obtain Smoking Status: Never smoker Past Alcohol Use History: Unable to Obtain Past Drug Use History: Unable to Obtain Medications and Allergies Home Medications Medication Instructions Recorded Confirmed Type Benztropine Mesylate 1 mg PO BID@0800,199909/25/19 09/02/21 History LORazepam [Ativan] 0.5 mg PO BID@1600,219909/25/19 09/02/21 History LORazepam [Ativan] 1 mg PO DAILY PRN 09/25/19 09/02/21 History Levothyroxine Sodium [Synthroid] 25 mcg PO DAILY@0800 09/25/19 09/02/21 History OXcarbazepine [Oxtellar Xr] 600 mg PO BID@0800,199909/25/19 09/02/21 History Vitamin B Complex/Folic Acid 0.4 mg PO DAILY@0800 09/25/19 09/02/21 History [Vitamin B Complex Tablet] Vitamin E 100 unit PO TID@0800,1600,199909/25/19 09/02/21 History Docusate [Colace] 100 mg PO BID@0800,199910/12/19 09/02/21 History Selsun Blue Sha 1% 1 applic TOPICAL SUWESA@199910/12/19 09/02/21 History bisacodyL 10 mg RECTAL Q72H PRN 10/12/19 09/02/21 History Cholecalciferol (Vitamin D3) 125 mcg PO DAILY@1600 07/12/20 09/02/21 History [Vitamin D3 (5000 Iu)] Magnesium Hydroxide [Milk of 2,400 mg PO DAILY PRN 07/12/20 09/02/21 History Magnesia] Tamsulosin [Flomax] 0.4 mg PO HS@2200 07/12/20 09/02/21 History Acetaminophen Tab [Tylenol Tab] 1,000 mg PO Q8H PRN 09/02/21 09/02/21 History Divalproex Sodium [Depakote] 1,000 mg PO DAILY@0800 09/02/21 09/02/21 History Divalproex Sodium [Depakote] 750 mg PO HS@199909/02/21 09/02/21 History Famotidine [Pepcid] 20 mg PO BID@0800,199909/02/21 09/02/21 History Fluoride (Sodium) [Sodium Fluoride 1 applic DENTAL HS@199909/02/21 09/02/21 History 5000 Plus] Gabapentin [Neurontin] 300 mg PO BID@0800,199909/02/21 09/02/21 History Guaifenesin/Dextromethorphan 1 cap PO Q6H PRN 09/02/21 09/02/21 History [Coricidin Hbp Softgel] Lactulose 20 gm PO Q48H PRN 09/02/21 09/02/21 History Loratadine 10 mg PO DAILY@0800 09/02/21 09/02/21 History Melatonin 3 mg PO HS@1600 09/02/21 09/02/21 History Menthol-Zinc Oxide Oint 1 applic TOPICAL DAILY@0800 09/02/21 09/02/21 History [Calmoseptine Ointment] QUEtiapine [SEROquel] 100 mg PO BID@0800,199909/02/21 09/02/21 History Sennosides [Senna] 17.2 mg PO BID@0800,199909/02/21 09/02/21 History diazePAM [Diastat] 10 mg RECTAL ONCE PRN 09/02/21 09/02/21 History levETIRAcetam [Keppra] 500 mg PO BID@0800,199909/02/21 09/02/21 History Allergies Allergy/AdvReac Type Severity Reaction Status Date / Time brivaracetam [From Briviact] Allergy Unknown Verified 09/02/21 10:20 escitalopram [From Lexapro] Allergy Unknown Verified 09/02/21 10:20 fluoxetine [From Prozac] Allergy Unknown Verified 09/02/21 10:20 haloperidol [From Haldol] Allergy Unknown Verified 09/02/21 10:20 lacosamide [From Vimpat] Allergy Unknown Verified 09/02/21 10:20 methylphenidate Allergy Unknown Verified 09/02/21 10:20 [From Ritalin] Penicillins Allergy Unknown Verified 09/02/21 10:20 phenobarbital Allergy Unknown Verified 09/02/21 10:20 phenytoin [From Dilantin] Allergy Unknown Verified 09/02/21 10:20 sulfamethoxazole Allergy Unknown Verified 09/02/21 10:20 [From Bactrim] trimethoprim [From Bactrim] Allergy Unknown Verified 09/02/21 10:20 oxcarbazepine AdvReac Unknown Verified 09/02/21 10:20 [From Trileptal] Physical Examination - Vital Signs Vital Signs: Vital Signs Temp Pulse Resp BP Pulse Ox 09/02/21 11:03 101.2 F H 85 20 118/75 96 09/02/21 09:02 93 18 143/90 96 09/02/21 08:58 99.8 F H Intake and Output 09/01/21 09/02/21 09/02/21 22:59 06:59 14:59 Other: Weight 81.647 kg GENERAL: The patient is lying in bed and does not seem in acute distress. CHEST: The heart rate is regular rate rhythm. No murmurs to auscultation. LUNG: Clear to auscultation bilaterally no wheezing noted throughout. Not labored breathing. ABDOMEN/GI: Bowel sounds present in all 4 quadrants. No tenderness to palpation throughout. NEUROLOGICAL: Very limited because of his condition. Higher mental function: The patient is severely drowsy but is minimally awakeable to voice. Does not follow commands or verbalize (baseline). Cranial nerves: The pupils are round, equal and reactive to light. Has extropia of left eyes (baseline, according to career development manager). No facial weakness. Otherwise rest is limited. Motor: The strength is lifting the right side spontaneously. Normal tone and bulk. Cerebellum: Sensation: Unable to assess. Reflexes (right/left): 1+ throughout. Plantars are mute bilaterally. Results - Laboratory Findings CBC and BMP: 09/02/21 09:34 09/02/21 09:34 Abnormal Lab Findings: Abnormal Labs 09/02/21 09/02/21 09:34 09:34 Hgb 12.7 L Hct 38.1 L Lymphocytes # 0.7 L Glucose 101 H Valproic Acid 130.1 H* Assessment and Plan Assessment: Breakthrough seizure. 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 If the patient has toxic level of valproic acid down the line or has supratherapeutic level and is symptomatic recommend increasing the Keppra if patient has no behavioral side-effects from medication and slightly lower on the valproic acid and we'll defer as an outpatient. If patient has side effects from Keppra can also consider Vimpat 50mg 1 tab bid. EEG is not warranted since patient has known history of seizures and will not change coordinator at this time. Keppra level is ordered by the ED team is pending Q4 hour neuro checks. Seizure precaution and seizure pads. On Ativan 1mg Q4 HR PRN. Will defer the rest of medical management to the primary team. Upon discharge, the patient needs to follow-up with his neurologist (Dr. Griffith). The plan is discussed with his career development manager from his [facility] and his nurse. Thank you for the consultation. Rico Ybarra M.D. Neuro-Hospitalist Time with Patient: Greater than 30
[2021-09-02] MEDS: SODIUM CHLORIDE 0.9% 1,000 ML IV SCH (15:14)
--- NOTE | 2021-09-02 15:56 | XR ---
EXAMINATION TYPE: XR chest 1V portable DATE OF EXAM: 09/02/2021 CLINICAL HISTORY: Cough. COVID infection TECHNIQUE: Single AP portable upright view of the chest is obtained. COMPARISON: Chest x-ray from July 12, 2020 FINDINGS: Cardiomegaly redemonstrated. Some chronic parenchymal changes bilaterally redemonstrated w ith some increased multifocal opacities in the lower lungs similar to prior. IMPRESSION: Cardiomegaly with multifocal left greater than right lower lung opacities could reflect p roducts of recurrent covid-19 infection infiltrates versus parenchymal scarring. Correlate clinically .
[2021-09-02] MEDS: LORazepam 0.5 MG TAB PO SCH ×2 (16:28→22:40)
[2021-09-02] MEDS ORDERED: LORazepam 2 MG/ML INJ IV STA (16:31)
[2021-09-02] MEDS: levETIRAcetam IV 500 MG in SODIUM CHLORIDE 0.9% 100 ML IVPB SCH (16:38)
[2021-09-02] MEDS: CHOLECALCIFEROL 125 MCG (5000 IU) TABLET PO SCH (16:48)
[2021-09-02] MEDS: MELATONIN 3 MG TABLET PO SCH (16:49)
[2021-09-02] MEDS ORDERED: levETIRAcetam 500 MG TAB PO SCH (20:00)
[2021-09-02] MEDS ORDERED: VALPROATE SODIUM 750 MG in SODIUM CHLORIDE 0.9% 50 ML IVPB SCH (21:00)
[2021-09-02] MEDS: OXcarbazepine 300 MG TAB PO SCH (22:27)
[2021-09-02] MEDS: TAMSULOSIN 0.4 MG CAP.ER.24H PO SCH (22:27)
[2021-09-02] MEDS: BENZTROPINE MESYLATE 1 MG TAB PO SCH (22:27)
[2021-09-02] MEDS: GABAPENTIN 300 MG CAP PO SCH (22:27)
[2021-09-02] MEDS: FAMOTIDINE 20 MG TAB PO SCH (22:28)
[2021-09-02] MEDS: DOCUSATE 100 MG CAP PO SCH (22:28)
[2021-09-02] MEDS: SENNOSIDES 8.6 MG TAB PO SCH (22:28)
[2021-09-02] MEDS: QUEtiapine 100 MG TAB PO SCH (22:39)
[2021-09-02] MEDS: OXCARBAZEPINE 600 MG PO SCH (22:44)
[2021-09-03] MEDS: SODIUM CHLORIDE 0.9% 1,000 ML IV SCH ×2 (01:33→14:13)
[2021-09-03] MEDS: ZINC SULFATE 220 MG CAP PO SCH (07:53)
[2021-09-03] MEDS: DOCUSATE 100 MG CAP PO SCH ×2 (07:53→23:17)
[2021-09-03] MEDS: LEVOTHYROXINE 25 MCG TAB PO SCH (07:53)
[2021-09-03] MEDS: VITAMIN E (DL,TOCOPHERYL ACET) 400 UNIT (180 MG) CAP PO SCH (07:53)
[2021-09-03] MEDS: GABAPENTIN 300 MG CAP PO SCH ×2 (07:53→23:18)
[2021-09-03] MEDS: SENNOSIDES 8.6 MG TAB PO SCH ×2 (07:53→23:17)
[2021-09-03] MEDS: OXCARBAZEPINE 600 MG PO SCH ×2 (07:54→23:19)
[2021-09-03] MEDS: ASCORBIC ACID 500 MG TAB PO SCH ×2 (07:54→23:17)
[2021-09-03] MEDS: BENZTROPINE MESYLATE 1 MG TAB PO SCH ×2 (07:54→23:18)
[2021-09-03] MEDS: QUEtiapine 100 MG TAB PO SCH ×2 (07:54→23:18)
[2021-09-03] MEDS: LORATADINE 10 MG TAB PO SCH (07:54)
[2021-09-03] MEDS: OXcarbazepine 300 MG TAB PO SCH ×2 (07:54→23:18)
[2021-09-03] MEDS: FAMOTIDINE 20 MG TAB PO SCH ×2 (07:54→23:17)
[2021-09-03] MEDS ORDERED: NON FORMULARY DRUG (Vitamin B Complex/Folic Acid [Vitamin B Complex Tablet] 0.4 MG Tablet) PO SCH (08:00)
[2021-09-03] MEDS ORDERED: VALPROATE SODIUM 1,000 MG in SODIUM CHLORIDE 0.9% 50 ML IVPB SCH (09:00)
[2021-09-03] MEDS ORDERED: bisacodyL 10 MG SUPP RECTAL PRN (09:00)
[2021-09-03] MEDS ORDERED: LACTULOSE 20 GM/30 ML CUP PO PRN (09:00)
[2021-09-03] MEDS ORDERED: levETIRAcetam 500 MG TAB PO SCH (09:30)
[2021-09-03] MEDS ORDERED: DIVALPROEX 500 MG TABLET.DR PO SCH (09:30)
[2021-09-03] MEDS: levETIRAcetam IV 500 MG in SODIUM CHLORIDE 0.9% 100 ML IVPB SCH (09:36)
[2021-09-03] MEDS: levETIRAcetam ORAL SOLN 500 MG/5 ML CUP PO SCH (10:00)
[2021-09-03] MEDS: DIVALPROEX SPRINKLE 125 MG CAP.SPRINK PO SCH (10:00)
[2021-09-03] MEDS: MELATONIN 3 MG TABLET PO SCH (14:14)
[2021-09-03] MEDS: CHOLECALCIFEROL 125 MCG (5000 IU) TABLET PO SCH (15:56)
[2021-09-03] MEDS: LORazepam 0.5 MG TAB PO SCH (15:57)
--- NOTE | 2021-09-03 16:27 | P.PN ---
Subjective Progress Note Date: 09/03/21 According to the patient nurse no further seizures in our facility. He is more awake and seems to be at baseline. Objective - Vital Signs Vital signs: Vital Signs Temp 98.3 F 09/03/21 08:00 Pulse 69 09/03/21 08:00 Resp 16 09/03/21 08:00 BP 127/81 09/03/21 08:00 Pulse Ox 95 09/03/21 08:00 Intake & Output 09/02/21 09/03/21 09/03/21 18:59 06:59 18:59 Weight 81.647 kg 81.647 kg Other: Voiding Method Incontinent # Voids 2 - Exam GENERAL: The patient is lying in bed and does not seem in acute distress. NEUROLOGICAL: Very limited because of his condition. Higher mental function: The patient is awake and does not follow commands or verbalize (appears baseline). Cranial nerves: The pupils are round, equal and reactive to light. Has extropia of left eyes (baseline, according to personal carer). No facial weakness. Otherwise rest is limited. - Labs CBC & Chem 7: 09/02/21 09:34 09/02/21 09:34 Labs: Abnormal Lab Results - Last 24 Hours (Table) 09/02/21 09/03/21 Range/Units 14:30 07:50 D-Dimer 1.39 H (<0.60) mg/L FEU C-Reactive Protein 7.4 H (<1.0) mg/dL Assessment and Plan Assessment: Breakthrough seizure. 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 If the patient has toxic level of valproic acid down the line or has supratherapeutic level and is symptomatic recommend increasing the Keppra if patient has no behavioral side-effects from medication and slightly lower on the valproic acid and we'll defer as an outpatient. If patient has side effects from Keppra can also consider Vimpat 50mg 1 tab bid. EEG is not warranted since patient has known history of seizures and will not address change clerk at this time. Keppra level: 16.9 Ordered Valproic acid and free level. Q4 hour neuro checks. Seizure precaution and seizure pads. On Ativan 1mg Q4 HR PRN. Will defer the rest of medical management to the primary team. Upon discharge, the patient needs to follow-up with his neurologist (Dr. Griffith). The plan is discussed with the nurse. Otherwise no additional testing needed. Rico Ybarra M.D. Neuro-Hospitalist Time with Patient: Less than 30
--- NOTE | 2021-09-03 17:01 | P.PN ---
Progress Note - Text Progress Note Date: 09/03/21 Chief Complaint: Seizures This is a 51-year-old patient, follows with visiting physicians Dr. Smith. History is obtained by the caregiver Marianna at the bedside. Patient is a resident of [facility]. At the baseline able to walk around. Nonverbal. Can feed himself. Sometimes patient will yell and make tractor-like noises. He has underlying history of autism, severe mental retardation, OCD and seizure disorder. He does hear bruits. Patient's neurologist is Dr. Stephens. Patient developed a fever yesterday. Of 101. Was taken out of the [place] ER she was diagnosed with COVID. To discharge to home. Patient only received 1 dose of Moderna as decided by his POA. That is his sister Azar Saldaña. Today patient had about 5 episodes of seizures. Staff at the alf didn't give the patientDiastat. Currently the patient's post ictal. Laying in bed. Lethargic. September 03: Patient taking his medications. Eating with assistance. Antiseizure medications being adjusted by neurology. Active Medications Acetaminophen (Acetaminophen Tab 500 Mg Tab) 1,000 mg PO Q8H PRN PRN Reason: Mild Pain Ascorbic Acid (Ascorbic Acid 500 Mg Tab) 500 mg PO BID [facility] Last Admin: 09/03/21 07:54 Dose: 500 mg Documented by: Benztropine Mesylate (Benztropine Mesylate 1 Mg Tab) 1 mg PO BID@0800,1999 [facility] Last Admin: 09/03/21 07:54 Dose: 1 mg Documented by: Bisacodyl (Bisacodyl 10 Mg Supp) 10 mg RECTAL Q72H PRN PRN Reason: Constipation Cholecalciferol (Cholecalciferol 125 Mcg (5000 Iu) Tablet) 125 mcg PO DAILY@1600 [facility] Last Admin: 09/03/21 15:56 Dose: 125 mcg Documented by: Divalproex Sodium (Divalproex Sprinkle 125 Mg Cap.Sprink) 1,000 mg PO DAILY [facility] Last Admin: 09/03/21 10:00 Dose: 1,000 mg Documented by: Divalproex Sodium (Divalproex Sprinkle 125 Mg Cap.Sprink) 750 mg PO [facility] Docusate Sodium (Docusate 100 Mg Cap) 100 mg PO BID@0800,1999 [facility] Last Admin: 09/03/21 07:53 Dose: 100 mg Documented by: Famotidine (Famotidine 20 Mg Tab) 20 mg PO BID@ [facility] Last Admin: 09/03/21 07:54 Dose: 20 mg Documented by: Gabapentin (Gabapentin 300 Mg Cap) 300 mg PO BID@ [facility] Last Admin: 09/03/21 07:53 Dose: 300 mg Documented by: Sodium Chloride (Saline 0.9%) 1,000 mls @ 75 mls/hr IV .[id number] [facility] Last Admin: 09/03/21 14:13 Dose: 75 mls/hr Documented by: Lactulose (Lactulose 20 Gm/30 Ml Cup) 20 gm PO Q48H PRN PRN Reason: Constipation Levetiracetam (Levetiracetam Oral Soln 500 Mg/5 Ml Cup) 500 mg PO Q12HR [facility] Last Admin: 09/03/21 10:00 Dose: 500 mg Documented by: Levothyroxine Sodium (Levothyroxine 25 Mcg Tab) 25 mcg PO DAILY@0630 [facility] Last Admin: 09/03/21 07:53 Dose: 25 mcg Documented by: Loratadine (Loratadine 10 Mg Tab) 10 mg PO DAILY@08 [facility] Last Admin: 09/03/21 07:54 Dose: 10 mg Documented by: Lorazepam (Lorazepam 0.5 Mg Tab) 0.5 mg PO BID@1600,2200 [facility] Last Admin: 09/03/21 15:57 Dose: 0.5 mg Documented by: Lorazepam (Lorazepam 1 Mg Tab) 1 mg PO DAILY PRN PRN Reason: Seizures Lorazepam (Lorazepam 2 Mg/Ml Inj) 1 mg IV Q4HR PRN PRN Reason: Seizures Magnesium Hydroxide (Magnesium Hydroxide 2,400 Mg/10 Ml Cup) 2,400 mg PO DAILY PRN PRN Reason: Constipation Melatonin (Melatonin 3 Mg Tablet) 3 mg PO HS@1600 [facility] Last Admin: 09/03/21 14:14 Dose: Not Given Documented by: Naloxone HCl (Naloxone 0.4 Mg/Ml 1 Ml Vial) 0.2 mg IV Q2M PRN PRN Reason: Opioid Reversal Patient's Own ( Oxcarbazepine [ Oxtellar Xr] 600 Mg Tab.Er.24h) 600 mg PO BID@ [facility] Last Admin: 09/03/21 07:54 Dose: Not Given Documented by: Patient's Own ( Selsun Blue Sha 1% 1 Applic) 1 applic TOPICAL SUWESA@1999 [facility] Oxcarbazepine (Oxcarbazepine 300 Mg Tab) 600 mg PO BID [facility] Last Admin: 09/03/21 07:54 Dose: 600 mg Documented by: Quetiapine Fumarate (Quetiapine 100 Mg Tab) 100 mg PO BID@ [facility] Last Admin: 09/03/21 07:54 Dose: 100 mg Documented by: Senna (Sennosides 8.6 Mg Tab) 17.2 mg PO BID@ [facility] Last Admin: 09/03/21 07:53 Dose: 17.2 mg Documented by: Tamsulosin HCl (Tamsulosin 0.4 Mg Cap.Er.24h) 0.4 mg PO HS@2199 [facility] Last Admin: 09/02/21 22:27 Dose: 0.4 mg Documented by: Vitamin E (Vitamin E (Dl,Tocopheryl Acet) 400 Unit (180 Mg) Cap) 400 unit PO DAILY@799 [facility] Last Admin: 09/03/21 07:53 Dose: 400 unit Documented by: Zinc Sulfate (Zinc Sulfate 220 Mg Cap) 220 mg PO DAILY [facility] Last Admin: 09/03/21 07:53 Dose: 220 mg Documented by: Review of systems: See above. And a baseline patient nonverbal. Past medical history to include: Autism, severe mental retardation, OCD, seizure disorder, Social history: Lives at [facility]. Patient's guardian is his sister Azar hernandez. No history of smoking alcohol Family history: Patient cannot tell Physical examination: VITAL SIGNS: 98.3, 78, 14, 126 with 76, 96% room air GENERAL: BMI 25.8, laying in bed, tired EYES: Pupils equal. Conjunctiva normal. HEENT: External appearance of nose and ears normal, oral cavity grossly normal. NECK: JVD not raised; masses not palpable. HEART: First and second heart sounds are normal; no edema. LUNGS:[ Respiratory rate normal; decreased breath sounds. ABDOMEN: Soft, nontender, liver spleen not palpable, no masses palpable. PSYCH: Nonverbal, unable to assessl. MUSCULOSKELETAL:No Clubbing/cyanosis;muscles-grossly intact INVESTIGATIONS, reviewed in the clinical context: White count 5.2 hemoglobin 12.7 platelets 49 potassium 4.4 creatinine 1.16 Valproic acid 130.1 EKG tracing personally reviewed by me-normal sinus rhythm. Chest x-ray film personally reviewed by me-bilateral infiltrates Assessment and plan: -Status epilepticus in a patient with known seizures.: Better Seizure precaution. Neurology consulted. Continue Depakote, Neurontin, CARBAMAZEPINE, Keppra. -Valproic acid toxicity Follow with neurology -Acute COVID-19 pneumonitis in a patient received only 1 dose of Moderna vaccine. Patient's pulse ox is good on room air. Supportive care. -Severe mental retardation from underlying autism -Obsessive-compulsive disorder -Legal guardian: Sister: Azar Saldaña Seizure precautions. Antiseizure medications per neurology. Feeding with assistance.
[2021-09-03 18:39] VITALS: RESP 16
[2021-09-03] MEDS ORDERED: DIVALPROEX 250 MG TABLET.DR PO SCH (21:00)
[2021-09-03] MEDS ORDERED: DIVALPROEX SPRINKLE 125 MG CAP.SPRINK PO SCH (21:00)
[2021-09-04] MEDS: TAMSULOSIN 0.4 MG CAP.ER.24H PO SCH (00:47)
[2021-09-04] MEDS: LORazepam 0.5 MG TAB PO SCH ×2 (00:47→15:54)
[2021-09-04] MEDS: levETIRAcetam ORAL SOLN 500 MG/5 ML CUP PO SCH ×2 (00:48→07:12)
[2021-09-04] MEDS: LEVOTHYROXINE 25 MCG TAB PO SCH (06:06)
[2021-09-04] MEDS: SODIUM CHLORIDE 0.9% 1,000 ML IV SCH ×2 (06:06→15:54)
[2021-09-04] MEDS: ZINC SULFATE 220 MG CAP PO SCH ×2 (07:10→07:11)
[2021-09-04] MEDS: VITAMIN E (DL,TOCOPHERYL ACET) 400 UNIT (180 MG) CAP PO SCH (07:10)
[2021-09-04] MEDS: DOCUSATE 100 MG CAP PO SCH (07:10)
[2021-09-04] MEDS: ASCORBIC ACID 500 MG TAB PO SCH (07:11)
[2021-09-04] MEDS: BENZTROPINE MESYLATE 1 MG TAB PO SCH (07:11)
[2021-09-04] MEDS: QUEtiapine 100 MG TAB PO SCH (07:11)
[2021-09-04] MEDS: LORATADINE 10 MG TAB PO SCH (07:11)
[2021-09-04] MEDS: GABAPENTIN 300 MG CAP PO SCH (07:11)
[2021-09-04] MEDS: FAMOTIDINE 20 MG TAB PO SCH (07:11)
[2021-09-04] MEDS: OXcarbazepine 300 MG TAB PO SCH (07:11)
[2021-09-04] MEDS: SENNOSIDES 8.6 MG TAB PO SCH (07:11)
[2021-09-04] MEDS: OXCARBAZEPINE 600 MG PO SCH (07:12)
[2021-09-04] MEDS: DIVALPROEX SPRINKLE 125 MG CAP.SPRINK PO SCH (07:12)
[2021-09-04 08:52] LABS: HCT 37.5 % (39.0-53.0); HGB 12.9 gm/dL (13.0-17.5); MCH 29.7 pg (25.0-35.0); MCHC 34.3 g/dL (31.0-37.0); MCV 86.7 fL (80.0-100.0); Mean Platelet Volume 8.9; Platelet Count 150 k/uL (150-450); RBC 4.33 m/uL (4.30-5.90); RDW 13.9 % (11.5-15.5); WBC 3.2 k/uL (3.8-10.6)
[2021-09-04 10:52] LABS: Band Neutrophils % 2 %; Monocytes # (M) 0.58 k/uL (0-1.0); Neutrophils % (M) 49 %; Nucleated Red Blood Cells 0 /100 WBC (0-0); Total Cells Counted 100
[2021-09-04 10:55] LABS: RBC Morphology Normal
--- NOTE | 2021-09-04 12:34 | P.PN ---
Subjective Progress Note Date: 09/04/21 The patient is seen at bedside and no further seizures that is reported by nursing staff. Objective - Vital Signs Vital signs: Vital Signs Temp 97.6 F 09/04/21 09:50 Pulse 69 09/04/21 09:50 Resp 16 09/04/21 09:50 BP 144/84 09/04/21 09:50 Pulse Ox 97 09/04/21 09:50 Intake & Output 09/03/21 09/04/21 09/04/21 18:59 06:59 18:59 Other: Voiding Method Incontinent Incontinent Incontinent External Catheter External Catheter # Voids 1 3 - Exam GENERAL: The patient is lying in bed and does not seem in acute distress. NEUROLOGICAL: Very limited because of his condition. Higher mental function: The patient is awake and does not follow commands or verbalize (appears baseline). Cranial nerves: The pupils are round, equal and reactive to light. Has extropia of left eyes (baseline, according to director critical care). No facial weakness. Otherwi se rest is limited. - Labs CBC & Chem 7: 09/04/21 07:01 09/02/21 09:34 Labs: Abnormal Lab Results - Last 24 Hours (Table) 09/04/21 Range/Units 07:01 WBC 3.2 L (3.8-10.6) k/uL Hgb 12.9 L (13.0-17.5) gm/dL Hct 37.5 L (39.0-53.0) % Lymphocytes # (Manual) 0.90 L (1.0-4.8) k/uL Assessment and Plan Assessment: Breakthrough seizure. 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 If the patient has toxic level of valproic acid down the line or has supratherapeutic level and is symptomatic recommend increasing the Keppra if patient has no behavioral side-effects from medication and slightly lower on the valproic acid and we'll defer as an outpatient. If patient has side effects from Keppra can also consider Vimpat 50mg 1 tab bid. EEG is not warranted since patient has known history of seizures and will not change consultant at this time. Keppra level: 16.9. Repeated Valproic acid level is 68.9 (therapeutic level). Pending free level of Valproic acid. Q4 hour neuro checks. Seizure precaution and seizure pads. On Ativan 1mg Q4 HR PRN. Will defer the rest of medical management to the primary team. Upon discharge, the patient needs to follow-up with his neurologist (Dr. Griffith). The plan is discussed with the primary team. Otherwise no additional testing needed. Patient is clear for discharge from neurological perspective. Rico Ybarra M.D. Neuro-Hospitalist Time with Patient: Less than 30
[2021-09-04] MEDS: MELATONIN 3 MG TABLET PO SCH (15:54)
[2021-09-04] MEDS: CHOLECALCIFEROL 125 MCG (5000 IU) TABLET PO SCH (15:54)
[2021-09-04 17:02] VITALS: BP 124/87; PULSE 65; TEMP 97.8
--- NOTE | 2021-09-04 19:29 | P.DS ---
Providers Date of admission: 09/02/21 12:18 Expected date of discharge: 09/04/21 Attending physician: Randy Lawrence Consults: 09/02/21 12:24 Consult Physician Urgent Consulting Provider: Rico Ybarra Consult Reason/Comments: Multiple seizures Do you want consulting provider notified?: Yes [facility] Course: Chief Complaint: Seizures This is a 51-year-old patient, follows with visiting physicians Dr. Smith. History is obtained by the caregiver Marianna at the bedside. Patient is a resident of [facility]. At the baseline able to walk around. Nonverbal. Can feed himself. Sometimes patient will yell and make tractor-like noises. He has underlying history of autism, severe mental retardation, OCD and seizure disorder. He does hear bruits. Patient's neurologist is Dr. Stephens. Patient developed a fever yesterday. Of 101. Was taken out of the [facility] she was diagnosed with COVID. To discharge to home. Patient only received 1 dose of Moderna as decided by his POA. That is his sister Azar Saldaña. Today patient had about 5 episodes of seizures. Staff at the [facility] didn't give the patientDiastat. Currently the patient's post ictal. Laying in bed. Lethargic. September 03: Patient taking his medications. Eating with assistance. Antiseizure medications being adjusted by neurology. September 04: Patient didn't tolerate diet well. No further seizures. Cleared by neurology. Patient follow-up with neurologist Dr. Stephens. Discharge planning more than 35 minutes Review of systems: See above. And a baseline patient nonverbal. Past medical history to include: Autism, severe mental retardation, OCD, seizure disorder, Social history: Lives at [facility]. Patient's guardian is his sister Azar Saldaña. No history of smoking alcohol Family history: Patient cannot tell Physical examination: VITAL SIGNS: 97.8, 65, 16, 124/87, 97% room air GENERAL: laying in bed, comfortable EYES: Pupils equal. Conjunctiva normal. HEENT: External appearance of nose and ears normal, oral cavity grossly normal. NECK: JVD not raised; masses not palpable. HEART: First and second heart sounds are normal; no edema. LUNGS:[ Respiratory rate normal; decreased breath sounds. ABDOMEN: Soft, nontender, liver spleen not palpable, no masses palpable. PSYCH: Nonverbal, unable to assessl. MUSCULOSKELETAL:No Clubbing/cyanosis;muscles-grossly intact INVESTIGATIONS, reviewed in the clinical context: September 04: White count 3.2 hemoglobin 12.9 White count 5.2 hemoglobin 12.7 platelets 49 potassium 4.4 creatinine 1.16 Valproic acid 130.1 EKG tracing personally reviewed by me-normal sinus rhythm. Chest x-ray film personally reviewed by me-bilateral infiltrates Assessment and plan: -Status epilepticus in a patient with known seizures.: Better Seizure precaution. Neurology consulted. Continue Depakote, Neurontin, CARBAMAZEPINE, Keppra. -Valproic acid toxicity Follow with neurology -Acute COVID-19 pneumonitis in a patient received only 1 dose of Moderna vaccine. Patient's pulse ox is good on room air. Supportive care. -Severe mental retardation from underlying autism -Obsessive-compulsive disorder -Legal guardian: Sister: Azar Saldaña Disposition: longterm Plan - Discharge Summary New Discharge Prescriptions: New Zinc Sulfate [Orazinc] 220 mg PO DAILY #14 cap OXcarbazepine [Trileptal] 600 mg PO BID #60 tab OXcarbazepine [Oxtellar Xr] 600 mg PO BID@799,1999 #1 tab Ascorbic Acid [Vitamin C] 500 mg PO BID #60 tab Continue Benztropine Mesylate 1 mg PO BID@799,1999 Levothyroxine Sodium [Synthroid] 25 mcg PO DAILY@0800 LORazepam [Ativan] 1 mg PO DAILY PRN PRN Reason: Seizures Vitamin E 100 unit PO TID@0800,1599,1999 OXcarbazepine [Oxtellar Xr] 600 mg PO BID@799,1999 LORazepam [Ativan] 0.5 mg PO BID@1600,2200 Vitamin B Complex/Folic Acid [Vitamin B Complex Tablet] 0.4 mg PO DAILY@0800 Selsun Blue Sha 1% 1 applic TOPICAL SUWESA@1999 bisacodyL 10 mg RECTAL Q72H PRN PRN Reason: Constipation Docusate [Colace] 100 mg PO BID@0800,1999 Magnesium Hydroxide [Milk of Magnesia] 2,400 mg PO DAILY PRN PRN Reason: Constipation Tamsulosin [Flomax] 0.4 mg PO HS@2200 Cholecalciferol (Vitamin D3) [Vitamin D3 (5000 Iu)] 125 mcg PO DAILY@1600 Lactulose 20 gm PO Q48H PRN PRN Reason: Constipation Sennosides [Senna] 17.2 mg PO BID@08,1999 QUEtiapine [SEROquel] 100 mg PO BID@799,1999 Menthol-Zinc Oxide Oint [Calmoseptine Ointment] 1 applic TOPICAL DAILY@0800 Loratadine 10 mg PO DAILY@0800 levETIRAcetam [Keppra] 500 mg PO BID@799,1999 Guaifenesin/Dextromethorphan [Coricidin Hbp Chest Khanh-Cough] 1 cap PO Q6H PRN PRN Reason: Cough Divalproex Sodium [Depakote] 1,000 mg PO DAILY@0800 Divalproex Sodium [Depakote] 750 mg PO HS@1999 Gabapentin [Neurontin] 300 mg PO BID@799,1999 Melatonin 3 mg PO HS@1600 Fluoride (Sodium) [Sodium Fluoride 5000 Plus] 1 applic DENTAL HS@1999 Famotidine [Pepcid] 20 mg PO BID@799,1999 diazePAM [Diastat] 10 mg RECTAL ONCE PRN PRN Reason: Seizure cluster Acetaminophen Tab [Tylenol] 1,000 mg PO Q8H PRN PRN Reason: Mild Pain Discharge Medication List Benztropine Mesylate 1 mg PO BID@0800,199909/25/19 [History] LORazepam [Ativan] 0.5 mg PO BID@1600,2200 09/25/19 [History] LORazepam [Ativan] 1 mg PO DAILY PRN 09/25/19 [History] Levothyroxine Sodium [Synthroid] 25 mcg PO DAILY@0800 09/25/19 [History] OXcarbazepine [Oxtellar Xr] 600 mg PO BID@08,199909/25/19 [History] Vitamin B Complex/Folic Acid [Vitamin B Complex Tablet] 0.4 mg PO DAILY@0800 09/25/19 [History] Vitamin E 100 unit PO TID@0800,1599,199909/25/19 [History] Docusate [Colace] 100 mg PO BID@08,199910/12/19 [History] Selsun Blue Sha 1% 1 applic TOPICAL SUWESA@199910/12/19 [History] bisacodyL 10 mg RECTAL Q72H PRN 10/12/19 [History] Cholecalciferol (Vitamin D3) [Vitamin D3 (5000 Iu)] 125 mcg PO DAILY@159907/12/20 [History] Magnesium Hydroxide [Milk of Magnesia] 2,400 mg PO DAILY PRN 07/12/20 [History] Tamsulosin [Flomax] 0.4 mg PO HS@219907/12/20 [History] Acetaminophen Tab [Tylenol] 1,000 mg PO Q8H PRN 09/02/21 [History] Divalproex Sodium [Depakote] 1,000 mg PO DAILY@79909/02/21 [History] Divalproex Sodium [Depakote] 750 mg PO HS@199909/02/21 [History] Famotidine [Pepcid] 20 mg PO BID@799,199909/02/21 [History] Fluoride (Sodium) [Sodium Fluoride 5000 Plus] 1 applic DENTAL HS@199909/02/21 [History] Gabapentin [Neurontin] 300 mg PO BID@799,199909/02/21 [History] Guaifenesin/Dextromethorphan [Coricidin Hbp Chest Khanh-Cough] 1 cap PO Q6H PRN 09/02/21 [History] Lactulose 20 gm PO Q48H PRN 09/02/21 [History] Loratadine 10 mg PO DAILY@0809/02/21 [History] Melatonin 3 mg PO HS@159909/02/21 [History] Menthol-Zinc Oxide Oint [Calmoseptine Ointment] 1 applic TOPICAL DAILY@79909/02/21 [History] QUEtiapine [SEROquel] 100 mg PO BID@799,199909/02/21 [History] Sennosides [Senna] 17.2 mg PO BID@799,199909/02/21 [History] diazePAM [Diastat] 10 mg RECTAL ONCE PRN 09/02/21 [History] levETIRAcetam [Keppra] 500 mg PO BID@08,199909/02/21 [History] Ascorbic Acid [Vitamin C] 500 mg PO BID #60 tab 09/04/21 [Rx] OXcarbazepine [Oxtellar Xr] 600 mg PO BID@0800,1999 #1 tab 09/04/21 [Rx] OXcarbazepine [Trileptal] 600 mg PO BID #60 tab 09/04/21 [Rx] Zinc Sulfate [Orazinc] 220 mg PO DAILY #14 cap 09/04/21 [Rx] Follow up Appointment(s)/Referral(s): neurologist,own [Other] - 1 Week Russell Smith MD [Primary Care Provider] - 1-2 days Patient Instructions/Handouts: Seizure/Epilepsy Discharge Instructions & Follow-Up Discharge Disposition: HOME SELF-CARE
[2021-09-04] MEDS ORDERED: [UNRECOGNIZED DRUG - OTHER] TOPICAL SCH (20:00)
== END 2021-09-04 16:33 | disposition home or self-care (01) ==
LOC: EC 08:57 → INTOOBSV 12:18 → 4SSUR 12:18 → UNDODISIN 09-04 16:33
PROVIDERS: ADMIT Hospitalist; ATTEND Hospitalist
PROC: 05H933Z Insertion of Infusion Device into Right Brachial Vein, Percutaneous Approach (ICD-10-PCS; principal; 2021-09-03 10:40)
DX: G40.911 Epilepsy, unspecified, intractable, with status epilepticus (principal); U07.1 COVID-19; J12.82 Pneumonia due to coronavirus disease 2019; T42.6X5A Adverse effect of other antiepileptic and sedative-hypnotic drugs, initial encounter; F72 Severe intellectual disabilities; F84.0 Autistic disorder; F50.89 Other specified eating disorder; F89 Unspecified disorder of psychological development; F42.9 Obsessive-compulsive disorder, unspecified; K59.00 Constipation, unspecified; Z28.311 Partially vaccinated for COVID-19; R32 Unspecified urinary incontinence; E66.9 Obesity, unspecified; Z68.25 Body mass index [BMI] 25.0-25.9, adult; Z79.890 Hormone replacement therapy; Z79.899 Other long term (current) drug therapy; Z88.0 Allergy status to penicillin; Z88.2 Allergy status to sulfonamides; Z88.5 Allergy status to narcotic agent; Z88.6 Allergy status to analgesic agent; Z88.8 Allergy status to other drugs, medicaments and biological substances; Z16.24 Resistance to multiple antibiotics; Z87.440 Personal history of urinary (tract) infections; Z86.19 Personal history of other infectious and parasitic diseases
CPT/HCPCS: 96361; 96365; 96375; 99285; 36415; 94760; 93005; 97162; 97165; 36410; 76937; 85379; 80164 ×2; 80165; 80053; 80177; 83735; 85025 ×2; 86140; 71045; 70450; G0378 ×3; J2060; J1953; 96374

== ENCOUNTER 2022-02-20 14:09 | Emergency (ER) | payer MEDICARE, OTHER ==
[2022-02-20 14:21] VITALS: BP 139/97; PULSE 99; RESP 20; TEMP 97.4
--- NOTE | 2022-02-20 15:28 | XR ---
EXAMINATION TYPE: XR chest 1V portable DATE OF EXAM: 02/20/2022 3:20 PM COMPARISON: Chest radiographs from 09/02/2021. TECHNIQUE: XR chest 1V portable Frontal view of the chest. CLINICAL INDICATION:Male, 51 years old with history of cough; FINDINGS: Lungs/Pleura: There is no evidence of pleural effusion, focal consolidation, or pneumothorax. Simila r chronic parenchymal changes redemonstrated. Pulmonary vascularity: Unremarkable. Heart/mediastinum: Cardiomediastinal silhouette is enlarged and stable. Musculoskeletal: No acute osseous pathology. IMPRESSION: Cardiomegaly with similar multifocal left greater than right lower lung opacities which could reflect infiltrate versus parenchymal scarring. Correlate clinically.
--- NOTE | 2022-02-20 15:32 | ED ---
Altered Mental Status HPI - General Chief Complaint: Altered Mental Status Stated Complaint: Cough,WINTER Time Seen by Provider: 02/20/22 14:22 Source: patient, Caregiver Mode of arrival: wheelchair Limitations: language barrier, altered mental status - History of Present Illness Initial Comments: This patient is 51-year-old man who is resident of an [facility] home. Patient is nonverbal at baseline and there is a caregiver here giving all of the history. The patient has been less active than usual. He started to deviate from his usual self yesterday. He was less active than usual also appetite decreased. Today he would not get out of bed. They attempted to get him up to have him walk to the bathroom and he would attempt to sit back down immediately any time they tried to stand him. Also appetite has been decreased. No change in urination or bowel movements noted. No vomiting. MD Complaint: altered mental status Onset/Timin -: days(s) Severity: moderate Consistency of Symptoms: getting worse Associated Symptoms: cough, loss of appetite, weakness - Related Data Home Medications Medication Instructions Recorded Confirmed Benztropine Mesylate 1 mg PO BID@0800,199909/25/19 09/02/21 LORazepam [Ativan] 0.5 mg PO BID@1600,2200 09/25/19 09/02/21 LORazepam [Ativan] 1 mg PO DAILY PRN 09/25/19 09/02/21 Levothyroxine Sodium [Synthroid] 25 mcg PO DAILY@0800 09/25/19 09/02/21 OXcarbazepine [Oxtellar Xr] 600 mg PO BID@0800,199909/25/19 09/02/21 Vitamin B Complex/Folic Acid 0.4 mg PO DAILY@0800 09/25/19 09/02/21 [Vitamin B Complex Tablet] Vitamin E (Dl,Tocopheryl Acet) 100 unit PO TID@0800,1600,199909/25/19 09/02/21 [Vitamin E] Docusate [Colace] 100 mg PO BID@0800,199910/12/19 09/02/21 Selsun Blue Sha 1% 1 applic TOPICAL SUWESA@199910/12/19 09/02/21 bisacodyL 10 mg RECTAL Q72H PRN 10/12/19 09/02/21 Cholecalciferol (Vitamin D3) 125 mcg PO DAILY@1600 07/12/20 09/02/21 [Vitamin D3 (5000 Iu)] Magnesium Hydroxide [Milk of 2,400 mg PO DAILY PRN 07/12/20 09/02/21 Magnesia] Tamsulosin [Flomax] 0.4 mg PO HS@2200 07/12/20 09/02/21 Acetaminophen Tab [Tylenol] 1,000 mg PO Q8H PRN 09/02/21 09/02/21 Divalproex Sodium [Depakote] 1,000 mg PO DAILY@0800 09/02/21 09/02/21 Divalproex Sodium [Depakote] 750 mg PO HS@199909/02/21 09/02/21 Famotidine [Pepcid] 20 mg PO BID@0800,199909/02/21 09/02/21 Fluoride (Sodium) [Sodium Fluoride 1 applic DENTAL HS@199909/02/21 09/02/21 5000 Plus] Gabapentin [Neurontin] 300 mg PO BID@0800,199909/02/21 09/02/21 Guaifenesin/Dextromethorphan 1 cap PO Q6H PRN 09/02/21 09/02/21 [Coricidin Hbp Chest Khanh-Cough] Lactulose 20 gm PO Q48H PRN 09/02/21 09/02/21 Loratadine 10 mg PO DAILY@0800 09/02/21 09/02/21 Melatonin 3 mg PO HS@159909/02/21 09/02/21 Menthol-Zinc Oxide Oint 1 applic TOPICAL DAILY@79909/02/21 09/02/21 [Calmoseptine Ointment] QUEtiapine [SEROquel] 100 mg PO BID@0800,199909/02/21 09/02/21 Sennosides [Senna] 17.2 mg PO BID@0800,199909/02/21 09/02/21 diazePAM [Diastat] 10 mg RECTAL ONCE PRN 09/02/21 09/02/21 levETIRAcetam [Keppra] 500 mg PO BID@0800,199909/02/21 09/02/21 Previous Rx's Medication Instructions Recorded Ascorbic Acid [Vitamin C] 500 mg PO BID #60 tab 09/04/21 OXcarbazepine [Oxtellar Xr] 600 mg PO BID@0800,2000 #1 tab 09/04/21 OXcarbazepine [Trileptal] 600 mg PO BID #60 tab 09/04/21 Zinc Sulfate [Orazinc] 220 mg PO DAILY #14 cap 09/04/21 Azithromycin [Zithromax] 0 mg PO DIRECTED #6 tab 02/20/22 Allergies Allergy/AdvReac Type Severity Reaction Status Date / Time brivaracetam [From Briviact] Allergy Unknown Verified 09/02/21 10:20 escitalopram [From Lexapro] Allergy Unknown Verified 09/02/21 10:20 fluoxetine [From Prozac] Allergy Unknown Verified 09/02/21 10:20 haloperidol [From Haldol] Allergy Unknown Verified 09/02/21 10:20 lacosamide [From Vimpat] Allergy Unknown Verified 09/02/21 10:20 methylphenidate Allergy Unknown Verified 09/02/21 10:20 [From Ritalin] Penicillins Allergy Unknown Verified 09/02/21 10:20 phenobarbital Allergy Unknown Verified 09/02/21 10:20 phenytoin [From Dilantin] Allergy Unknown Verified 09/02/21 10:20 sulfamethoxazole Allergy Unknown Verified 09/02/21 10:20 [From Bactrim] trimethoprim [From Bactrim] Allergy Unknown Verified 09/02/21 10:20 oxcarbazepine AdvReac Unknown Verified 09/02/21 10:20 [From Trileptal] Review of Systems ROS Statement: Those systems with pertinent positive or pertinent negative responses have been documented in the HPI. ROS Other: All systems not noted in ROS Statement are negative. Limitations: ROS unobtainable due to patients medical condition Constitutional: Denies: fever Respiratory: Denies: cough, dyspnea Cardiovascular: Denies: syncope Gastrointestinal: Denies: vomiting, diarrhea, melena Genitourinary: Denies: dysuria, hematuria Past Medical History Past Medical History: Seizure Disorder Additional Past Medical History / Comment(s): autism, pica, epilepsy History of Any Multi-Drug Resistant Organisms: ESBL Date of last positivie culture/infection: 10/17/20 ESBL-Proteus MDRO Source:: ESBL-Urine Past Surgical History: No Surgical Hx Reported Past Anesthesia/Blood Transfusion Reactions: No Reported Reaction Past Psychological History: Unable to Obtain Smoking Status: Unknown if ever smoked Past Alcohol Use History: Unable to Obtain Past Drug Use History: Unable to Obtain General Exam Limitations: no limitations, language barrier, altered mental status General appearance: alert, in no apparent distress Head exam: Present: atraumatic, normocephalic Eye exam: Present: normal appearance, PERRL, EOMI. Absent: scleral icterus, conjunctival injection ENT exam: Present: mucous membranes dry Neck exam: Present: normal inspection, full ROM. Absent: tenderness, meningismus Respiratory exam: Present: normal lung sounds bilaterally. Absent: respiratory distress, wheezes, rales, rhonchi, stridor Cardiovascular Exam: Present: regular rate, normal rhythm, normal heart sounds. Absent: systolic murmur, diastolic murmur, rubs, gallop GI/Abdominal exam: Present: soft. Absent: distended, tenderness, guarding, rebound, rigid, mass Extremities exam: Present: normal inspection, normal capillary refill. Absent: pedal edema, calf tenderness Back exam: Present: normal inspection. Absent: CVA tenderness (R), CVA tenderness (L) Neurological exam: Present: alert, other (Patient is not able to cooperate with the neurologic exam. Patient is nonverbal at baseline. Does move all 4 extremities without evident focal deficit.). Absent: motor sensory deficit Skin exam: Present: warm, dry, intact, normal color. Absent: rash Course Vital Signs 02/20/22 14:17 Temperature 97.4 F L Pulse Rate 99 Respiratory 20 Rate Blood Pressure 139/97 O2 Sat by Pulse 98 Oximetry Medical Decision Making - Lab Data Result diagrams: 02/20/22 16:16 02/20/22 16:16 Lab Results 02/20/22 02/20/22 02/20/22 Range/Units 14:57 14:57 16:16 WBC 4.1 (3.8-10.6) k/uL RBC 4.64 (4.30-5.90) m/uL Hgb 13.6 (13.0-17.5) gm/dL Hct 40.0 (39.0-53.0) % MCV 86.1 (80.0-100.0) fL MCH 29.4 (25.0-35.0) pg MCHC 34.1 (31.0-37.0) g/dL RDW 12.9 (11.5-15.5) % Plt Count 174 (150-450) k/uL MPV 7.8 Neutrophils % 39 % Lymphocytes % 50 % Monocytes % 7 % Eosinophils % 2 % Basophils % 1 % Neutrophils # 1.6 (1.3-7.7) k/uL Lymphocytes # 2.1 (1.0-4.8) k/uL Monocytes # 0.3 (0-1.0) k/uL Eosinophils # 0.1 (0-0.7) k/uL Basophils # 0.0 (0-0.2) k/uL Sodium (137-145) mmol/L Potassium (3.5-5.1) mmol/L Chloride (98-107) mmol/L Carbon Dioxide (22-30) mmol/L Anion Gap mmol/L BUN (9-20) mg/dL Creatinine (0.66-1.25) mg/dL Est GFR (CKD-EPI)AfAm (>60 ml/min/1.73 sqM) Est GFR (CKD-EPI)NonAf (>60 ml/min/1.73 sqM) Glucose (74-99) mg/dL Plasma Lactic Acid Raza (0.7-2.0) mmol/L Calcium (8.4-10.2) mg/dL Total Bilirubin (0.2-1.3) mg/dL AST (17-59) U/L ALT (4-49) U/L Alkaline Phosphatase (38-126) U/L Troponin I (0.000-0.034) ng/mL Total Protein (6.3-8.2) g/dL Albumin (3.5-5.0) g/dL Urine Color Urine Appearance (Clear) Urine pH (5.0-8.0) Ur Specific Forman (1.001-1.035) Urine Protein (Negative) Urine Glucose (UA) (Negative) Urine Ketones (Negative) Urine Blood (Negative) Urine Nitrite (Negative) Urine Bilirubin (Negative) Urine Urobilinogen (<2.0) mg/dL Ur Leukocyte Esterase (Negative) Urine RBC (0-5) /hpf Urine WBC (0-5) /hpf Ur Squamous Epith Cells (0-4) /hpf Urine Mucus (None) /hpf Coronavirus (PCR) Not Detected (Not Detectd) Influenza Type A RNA Not Detected (Not Detectd) Influenza Type B (PCR) Not Detected (Not Detectd) 02/20/22 02/20/22 02/20/22 Range/Units 16:16 16:16 16:16 WBC (3.8-10.6) k/uL RBC (4.30-5.90) m/uL Hgb (13.0-17.5) gm/dL Hct (39.0-53.0) % MCV (80.0-100.0) fL MCH (25.0-35.0) pg MCHC (31.0-37.0) g/dL RDW (11.5-15.5) % Plt Count (150-450) k/uL MPV Neutrophils % % Lymphocytes % % Monocytes % % Eosinophils % % Basophils % % Neutrophils # (1.3-7.7) k/uL Lymphocytes # (1.0-4.8) k/uL Monocytes # (0-1.0) k/uL Eosinophils # (0-0.7) k/uL Basophils # (0-0.2) k/uL Sodium 140 (137-145) mmol/L Potassium 4.4 (3.5-5.1) mmol/L Chloride 102 (98-107) mmol/L Carbon Dioxide 25 (22-30) mmol/L Anion Gap 13 mmol/L BUN 29 H (9-20) mg/dL Creatinine 1.21 (0.66-1.25) mg/dL Est GFR (CKD-EPI)AfAm 79 (>60 ml/min/1.73 sqM) Est GFR (CKD-EPI)NonAf 69 (>60 ml/min/1.73 sqM) Glucose 96 (74-99) mg/dL Plasma Lactic Acid Raza 1.1 (0.7-2.0) mmol/L Calcium 9.3 (8.4-10.2) mg/dL Total Bilirubin 0.4 (0.2-1.3) mg/dL AST 24 (17-59) U/L ALT 20 (4-49) U/L Alkaline Phosphatase 74 (38-126) U/L Troponin I <0.012 (0.000-0.034) ng/mL Total Protein 7.2 (6.3-8.2) g/dL Albumin 4.5 (3.5-5.0) g/dL Urine Color Urine Appearance (Clear) Urine pH (5.0-8.0) Ur Specific Forman (1.001-1.035) Urine Protein (Negative) Urine Glucose (UA) (Negative) Urine Ketones (Negative) Urine Blood (Negative) Urine Nitrite (Negative) Urine Bilirubin (Negative) Urine Urobilinogen (<2.0) mg/dL Ur Leukocyte Esterase (Negative) Urine RBC (0-5) /hpf Urine WBC (0-5) /hpf Ur Squamous Epith Cells (0-4) /hpf Urine Mucus (None) /hpf Coronavirus (PCR) (Not Detectd) Influenza Type A RNA (Not Detectd) Influenza Type B (PCR) (Not Detectd) 02/20/22 Range/Units 17:40 WBC (3.8-10.6) k/uL RBC (4.30-5.90) m/uL Hgb (13.0-17.5) gm/dL Hct (39.0-53.0) % MCV (80.0-100.0) fL MCH (25.0-35.0) pg MCHC (31.0-37.0) g/dL RDW (11.5-15.5) % Plt Count (150-450) k/uL MPV Neutrophils % % Lymphocytes % % Monocytes % % Eosinophils % % Basophils % % Neutrophils # (1.3-7.7) k/uL Lymphocytes # (1.0-4.8) k/uL Monocytes # (0-1.0) k/uL Eosinophils # (0-0.7) k/uL Basophils # (0-0.2) k/uL Sodium (137-145) mmol/L Potassium (3.5-5.1) mmol/L Chloride (98-107) mmol/L Carbon Dioxide (22-30) mmol/L Anion Gap mmol/L BUN (9-20) mg/dL Creatinine (0.66-1.25) mg/dL Est GFR (CKD-EPI)AfAm (>60 ml/min/1.73 sqM) Est GFR (CKD-EPI)NonAf (>60 ml/min/1.73 sqM) Glucose (74-99) mg/dL Plasma Lactic Acid Raza (0.7-2.0) mmol/L Calcium (8.4-10.2) mg/dL Total Bilirubin (0.2-1.3) mg/dL AST (17-59) U/L ALT (4-49) U/L Alkaline Phosphatase (38-126) U/L Troponin I (0.000-0.034) ng/mL Total Protein (6.3-8.2) g/dL Albumin (3.5-5.0) g/dL Urine Color Yellow Urine Appearance Clear (Clear) Urine pH 6.5 (5.0-8.0) Ur Specific Forman 1.023 (1.001-1.035) Urine Protein Negative (Negative) Urine Glucose (UA) Negative (Negative) Urine Ketones Negative (Negative) Urine Blood Trace H (Negative) Urine Nitrite Negative (Negative) Urine Bilirubin Negative (Negative) Urine Urobilinogen <2.0 (<2.0) mg/dL Ur Leukocyte Esterase Negative (Negative) Urine RBC 14 H (0-5) /hpf Urine WBC 2 (0-5) /hpf Ur Squamous Epith Cells <1 (0-4) /hpf Urine Mucus Rare H (None) /hpf Coronavirus (PCR) (Not Detectd) Influenza Type A RNA (Not Detectd) Influenza Type B (PCR) (Not Detectd) - EKG Data -: EKG Interpreted by Ak EKG shows normal: sinus rhythm, intervals (Borderline QRS duration at 124 ms.) Rate: normal (Rate 67 bpm) Disposition Clinical Impression: Altered mental status Disposition: HOME SELF-CARE Condition: Fair Instructions (If sedation given, give patient instructions): Altered Mental Status (ED) Prescriptions: Azithromycin [Zithromax] 0 mg PO DIRECTED #6 tab Is patient prescribed a controlled substance at d/c from ED?: No Referrals: Russell Smith MD [Primary Care Provider] - 1-2 days
[2022-02-20 16:28] LABS: Basophils % (A) 1 %; Eosinophils # (A) 0.1 k/uL (0-0.7); Eosinophils % (A) 2 %; HGB 13.6 gm/dL (13.0-17.5); Lymphocytes # (A) 2.1 k/uL (1.0-4.8); Lymphocytes % (A) 50 %; MCH 29.4 pg (25.0-35.0); MCHC 34.1 g/dL (31.0-37.0); MCV 86.1 fL (80.0-100.0); Mean Platelet Volume 7.8; Monocytes # (A) 0.3 k/uL (0-1.0); Monocytes % (A) 7 %; Neutrophils # (A) 1.6 k/uL (1.3-7.7); Neutrophils % (A) 39 %; Platelet Count 174 k/uL (150-450); RBC 4.64 m/uL (4.30-5.90); RDW 12.9 % (11.5-15.5); WBC 4.1 k/uL (3.8-10.6)
[2022-02-20 16:42] LABS: Albumin 4.5 g/dL (3.5-5.0); Calcium 9.3 mg/dL (8.4-10.2); Potassium 4.4 mmol/L (3.5-5.1); Total Bilirubin 0.4 mg/dL (0.2-1.3); Total Protein 7.2 g/dL (6.3-8.2)
[2022-02-20 17:49] LABS: Appearance,Urine Clear (Clear); Bilirubin,Urine Negative (Negative); Blood,Urine Trace (Negative); Color,Urine Yellow; Glucose,Urine (UA) Negative (Negative); Ketones,Urine Negative (Negative); Leukocyte Esterase,Urine Negative (Negative); Mucus,Urine Rare /hpf; Nitrite,Urine Negative (Negative); PH, Urine 6.5 (5.0-8.0); Protein,Urine Negative (Negative); RBC,Urine 14 /hpf (0-5); Specific Gravity,Urine 1.023 (1.001-1.035); Squamous Epithelial Cell,Urine <1 /hpf (0-4); Urobilinogen,Urine <2.0 mg/dL (<2.0); WBC,Urine 2 /hpf (0-5)
[2022-02-20] MEDS ORDERED: AZITHROMYCIN 500 MG TAB PO STA (17:58)
== END 2022-02-20 23:06 | disposition home or self-care (01) ==
LOC: EC 14:09
DX: R41.82 Altered mental status, unspecified (principal); Z88.8 Allergy status to other drugs, medicaments and biological substances; Z88.5 Allergy status to narcotic agent; Z88.6 Allergy status to analgesic agent; Z88.2 Allergy status to sulfonamides; Z88.1 Allergy status to other antibiotic agents; Z20.822 Contact with and (suspected) exposure to COVID-19
CPT/HCPCS: 36415; 51798; 71045; 80053; 81001; 83605; 84484; 85025; 87502; 87635; 93005; 99285

== ENCOUNTER 2022-02-24 13:54 | Observation (INO) | payer MEDICARE, OTHER ==
--- NOTE | 2022-02-24 19:56 | ED ---
Weakness HPI - General Chief complaint: Weakness Stated complaint: Weakness,HTN,sent by PCP Time Seen by Provider: 02/24/22 19:43 Source: RN notes reviewed, Caregiver Mode of arrival: wheelchair Limitations: language barrier, altered mental status, physical limitation - History of Present Illness Initial comments: This is a 51-year-old male who has severe and profound autism, nonverbal, brought to the emergency by his long term caregiver. Shouldn't saw his primary care provider today and was a bit lethargic at that time. Patient also had a blood pressure of 125/100. No known fever. Patient was seen here on the for cough, nasal congestion, chest congestion. There's been no known fever. Patient currently on Zithromax and Mucinex. Patient's workup on that day was essentially normal aside from possible mild pneumonia Review the x-ray did not appear to be 2 different from the patient's previous studies. Review of systems is limited and unavailable due to patient condition. At neurological baseline per caregiver - Related Data Home Medications Medication Instructions Recorded Confirmed LORazepam [Ativan] 0.5 mg PO BID@1600,0 09/25/19 02/24/22 LORazepam [Ativan] 1 mg PO DAILY PRN 09/25/19 02/24/22 Levothyroxine Sodium [Synthroid] 25 mcg PO DAILY@0800 09/25/19 02/24/22 Vitamin E (Dl,Tocopheryl Acet) 100 unit PO TID@0800,1600,199909/25/19 02/24/22 [Vitamin E] Docusate [Colace] 100 mg PO DAILY PRN 10/12/19 02/24/22 Selsun Blue Sha 1% 1 applic TOPICAL SUWESA@199910/12/19 02/24/22 bisacodyL 10 mg RECTAL Q72H PRN 10/12/19 02/24/22 Cholecalciferol (Vitamin D3) 125 mcg PO DAILY@1600 07/12/20 02/24/22 [Vitamin D3 (5000 Iu)] Magnesium Hydroxide [Milk of 2,400 mg PO DAILY PRN 07/12/20 02/24/22 Magnesia] Tamsulosin [Flomax] 0.4 mg PO HS@199907/12/20 02/24/22 Acetaminophen Tab [Tylenol] 1,000 mg PO Q8H PRN 09/02/21 02/24/22 Divalproex Sodium [Depakote] 1,000 mg PO DAILY@0800 09/02/21 02/24/22 Divalproex Sodium [Depakote] 750 mg PO HS@199909/02/21 02/24/22 Famotidine [Pepcid] 20 mg PO BID@0800,199909/02/21 02/24/22 Fluoride (Sodium) [Sodium Fluoride 1 applic DENTAL HS@199909/02/21 02/24/22 5000 Plus] Gabapentin [Neurontin] 300 mg PO BID@0800,199909/02/21 02/24/22 Guaifenesin/Dextromethorphan 1 cap PO Q6H PRN 09/02/21 02/24/22 [Coricidin Hbp Chest Khanh-Cough] Lactulose 20 gm PO Q48H PRN 09/02/21 02/24/22 Loratadine 10 mg PO DAILY@0800 09/02/21 02/24/22 Menthol-Zinc Oxide Oint 1 applic TOPICAL DAILY@0800 09/02/21 02/24/22 [Calmoseptine Ointment] QUEtiapine [SEROquel] 100 mg PO BID@0800,199909/02/21 02/24/22 Sennosides [Senna] 17.2 mg PO BID@0800,199909/02/21 02/24/22 diazePAM [Diastat] 10 mg RECTAL ONCE PRN 09/02/21 02/24/22 levETIRAcetam [Keppra] 500 mg PO BID@0800,199909/02/21 02/24/22 Ascorbic Acid [Vitamin C] 500 mg PO BID@0800,199902/24/22 02/24/22 Azithromycin [Zithromax] See Taper PO DIRECTED 02/24/22 02/24/22 Vitamin B Complex 1 cap PO DAILY@0800 02/24/22 02/24/22 Zinc Gluconate [Zinc] 50 mg PO HS@199902/24/22 02/24/22 guaiFENesin [Mucinex] 1,200 mg PO BID@0800,199902/24/22 02/24/22 Previous Rx's Medication Instructions Recorded OXcarbazepine [Oxtellar Xr] 600 mg PO BID@0800,1999 #1 tab 09/04/21 Allergies Allergy/AdvReac Type Severity Reaction Status Date / Time brivaracetam [From Briviact] Allergy Unknown Verified 02/24/22 20:37 escitalopram [From Lexapro] Allergy Unknown Verified 02/24/22 20:37 fluoxetine [From Prozac] Allergy Unknown Verified 02/24/22 20:37 haloperidol [From Haldol] Allergy Unknown Verified 02/24/22 20:37 lacosamide [From Vimpat] Allergy Unknown Verified 02/24/22 20:37 methylphenidate Allergy Unknown Verified 02/24/22 20:37 [From Ritalin] Penicillins Allergy Unknown Verified 02/24/22 20:37 phenobarbital Allergy Unknown Verified 02/24/22 20:37 phenytoin [From Dilantin] Allergy Unknown Verified 02/24/22 20:37 sulfamethoxazole Allergy Unknown Verified 02/24/22 20:37 [From Bactrim] trimethoprim [From Bactrim] Allergy Unknown Verified 02/24/22 20:37 oxcarbazepine AdvReac Unknown Verified 02/24/22 20:37 [From Trileptal] Review of Systems ROS Statement: Those systems with pertinent positive or pertinent negative responses have been documented in the HPI. ROS Other: All systems not noted in ROS Statement are negative. Past Medical History Past Medical History: Seizure Disorder Additional Past Medical History / Comment(s): autism, pica, epilepsy History of Any Multi-Drug Resistant Organisms: ESBL Date of last positivie culture/infection: 10/17/20 ESBL-Proteus MDRO Source:: ESBL-Urine Past Surgical History: No Surgical Hx Reported Past Anesthesia/Blood Transfusion Reactions: No Reported Reaction Past Psychological History: Unable to Obtain Smoking Status: Unknown if ever smoked Past Alcohol Use History: Unable to Obtain Past Drug Use History: Unable to Obtain General Exam Limitations: language barrier, altered mental status, physical limitation General appearance: alert, in no apparent distress Head exam: Present: atraumatic, normocephalic, normal inspection Eye exam: Present: normal appearance, EOMI ENT exam: Present: normal exam, normal oropharynx, mucous membranes moist, TM's normal bilaterally, normal external ear exam, other (Clear runny nose noted). Absent: mucous membranes dry Neck exam: Present: normal inspection. Absent: tenderness, meningismus, lymphadenopathy Respiratory exam: Present: rhonchi (Mild scattered rhonchi without wheezing). Absent: normal lung sounds bilaterally, respiratory distress, wheezes, rales, stridor, chest wall tenderness, accessory muscle use, decreased breath sounds, prolonged expiratory Cardiovascular Exam: Present: regular rate, normal rhythm, normal heart sounds. Absent: systolic murmur, diastolic murmur, rubs, gallop, clicks GI/Abdominal exam: Present: soft, normal bowel sounds. Absent: distended, tenderness, guarding, rebound, rigid Extremities exam: Present: normal inspection. Absent: tenderness Back exam: Present: normal inspection Neurological exam: Present: alert. Absent: altered (At baseline per caregiver), motor sensory deficit Psychiatric exam: Present: normal affect, normal mood Skin exam: Present: warm, dry, intact, normal color. Absent: rash Course Vital Signs 02/24/22 02/24/22 14:06 23:03 Pulse Rate 64 65 Respiratory 20 18 Rate Blood Pressure 150/99 131/95 O2 Sat by Pulse 94 L 96 Oximetry - Reevaluation(s) Reevaluation #1: 02/24/22 22:34 Medical record is reviewed Symptoms are essentially unchanged Patient is informed of results and questions answered Patient in no distress Reevaluation #2: 02/24/22 22:35 Reviewed with the ED attending physician. Patient has increased opacity lateral view consistent with possible lobar pneumonia. I did review the radiology interpretation. - Consultations Consultation #1: Case discussed in detail Dr. Lawrence who accepts admission. EKG Findings - EKG Comments: EKG Findings:: EKG done at 2303. ED attending physician reveals right axis deviation with no evidence of acute ST or T wave changes. MS interval prolonged at 205 ms. Remainder of the intervals are normal. Rate of 63. Medical Decision Making - Medical Decision Making Patient energetic, does not appear to be ill or toxic. At neurological baseline per caregiver. Appears to have symptoms consistent with a viral upper respiratory infection or possibly viral bronchitis. We'll repeat workup to include RSV, influenza, and COVID-19 testing. Shows evidence of lobar pneumonia and lateral chest x-ray. X-ray reviewed with ED attending physician. The case was discussed in detail with ED attending physician. Presentation, findings, treatment plan discussed in detail. Grinder Tender Dr. Roskopp - Lab Data Result diagrams: 02/24/22 20:12 02/24/22 20:12 Lab Results 02/24/22 02/24/22 02/24/22 Range/Units 20:12 20:12 20:12 WBC 4.6 (3.8-10.6) k/uL RBC 5.04 (4.30-5.90) m/uL Hgb 15.3 (13.0-17.5) gm/dL Hct 43.3 (39.0-53.0) % MCV 86.0 (80.0-100.0) fL MCH 30.3 (25.0-35.0) pg MCHC 35.3 (31.0-37.0) g/dL RDW 13.0 (11.5-15.5) % Plt Count 178 (150-450) k/uL MPV 7.7 Sodium 142 (137-145) mmol/L Potassium 4.6 (3.5-5.1) mmol/L Chloride 104 (98-107) mmol/L Carbon Dioxide 27 (22-30) mmol/L Anion Gap 11 mmol/L BUN 23 H (9-20) mg/dL Creatinine 1.12 (0.66-1.25) mg/dL Est GFR (CKD-EPI)AfAm 87 (>60 ml/min/1.73 sqM) Est GFR (CKD-EPI)NonAf 75 (>60 ml/min/1.73 sqM) Glucose 92 (74-99) mg/dL Plasma Lactic Acid Raza (0.7-2.0) mmol/L Calcium 9.3 (8.4-10.2) mg/dL Total Bilirubin 0.6 (0.2-1.3) mg/dL AST 30 (17-59) U/L ALT 21 (4-49) U/L Alkaline Phosphatase 81 (38-126) U/L Total Protein 7.7 (6.3-8.2) g/dL Albumin 4.7 (3.5-5.0) g/dL Urine Color Yellow Urine Appearance Clear (Clear) Urine pH 6.5 (5.0-8.0) Ur Specific [place] 1.026 (1.001-1.035) Urine Protein Trace H (Negative) Urine Glucose (UA) Negative (Negative) Urine Ketones Negative (Negative) Urine Blood Negative (Negative) Urine Nitrite Negative (Negative) Urine Bilirubin Negative (Negative) Urine Urobilinogen <2.0 (<2.0) mg/dL Ur Leukocyte Esterase Negative (Negative) Influenza Type A (PCR) (Not Detectd) Influenza Type B (PCR) (Not Detectd) RSV (PCR) (Not Detectd) SARS-CoV-2 (PCR) (Not Detectd) 02/24/22 02/24/22 Range/Units 20:12 20:12 WBC (3.8-10.6) k/uL RBC (4.30-5.90) m/uL Hgb (13.0-17.5) gm/dL Hct (39.0-53.0) % MCV (80.0-100.0) fL MCH (25.0-35.0) pg MCHC (31.0-37.0) g/dL RDW (11.5-15.5) % Plt Count (150-450) k/uL MPV Sodium (137-145) mmol/L Potassium (3.5-5.1) mmol/L Chloride (98-107) mmol/L Carbon Dioxide (22-30) mmol/L Anion Gap mmol/L BUN (9-20) mg/dL Creatinine (0.66-1.25) mg/dL Est GFR (CKD-EPI)AfAm (>60 ml/min/1.73 sqM) Est GFR (CKD-EPI)NonAf (>60 ml/min/1.73 sqM) Glucose (74-99) mg/dL Plasma Lactic Acid Raza 1.7 (0.7-2.0) mmol/L Calcium (8.4-10.2) mg/dL Total Bilirubin (0.2-1.3) mg/dL AST (17-59) U/L ALT (4-49) U/L Alkaline Phosphatase (38-126) U/L Total Protein (6.3-8.2) g/dL Albumin (3.5-5.0) g/dL Urine Color Urine Appearance (Clear) Urine pH (5.0-8.0) Ur Specific [place] (1.001-1.035) Urine Protein (Negative) Urine Glucose (UA) (Negative) Urine Ketones (Negative) Urine Blood (Negative) Urine Nitrite (Negative) Urine Bilirubin (Negative) Urine Urobilinogen (<2.0) mg/dL Ur Leukocyte Esterase (Negative) Influenza Type A (PCR) Not Detected (Not Detectd) Influenza Type B (PCR) Not Detected (Not Detectd) RSV (PCR) Not Detected (Not Detectd) SARS-CoV-2 (PCR) Not Detected (Not Detectd) - Radiology Data Radiology results: report reviewed, image reviewed Disposition Clinical Impression: Community acquired pneumonia, Generalized weakness Narrative: Community acquired pneumonia with outpatient treatment failure Disposition: ADMITTED IP TO THIS [facility] Condition: Good Is patient prescribed a controlled substance at d/c from ED?: No Time of Disposition: 22:40 Decision to Admit Reason: Admit from EC Decision Date: 02/24/22
[2022-02-24 20:20] LABS: Appearance,Urine Clear (Clear); Bilirubin,Urine Negative (Negative); Blood,Urine Negative (Negative); Color,Urine Yellow; Glucose,Urine (UA) Negative (Negative); Ketones,Urine Negative (Negative); Leukocyte Esterase,Urine Negative (Negative); Nitrite,Urine Negative (Negative); PH, Urine 6.5 (5.0-8.0); Protein,Urine Trace (Negative); Specific Gravity,Urine 1.026 (1.001-1.035); Urobilinogen,Urine <2.0 mg/dL (<2.0)
[2022-02-24 20:21] LABS: HCT 43.3 % (39.0-53.0); HGB 15.3 gm/dL (13.0-17.5); MCH 30.3 pg (25.0-35.0); MCHC 35.3 g/dL (31.0-37.0); Mean Platelet Volume 7.7; Platelet Count 178 k/uL (150-450); RBC 5.04 m/uL (4.30-5.90); WBC 4.6 k/uL (3.8-10.6)
[2022-02-24 20:30] LABS: Albumin 4.7 g/dL (3.5-5.0); Calcium 9.3 mg/dL (8.4-10.2); Potassium 4.6 mmol/L (3.5-5.1); Total Bilirubin 0.6 mg/dL (0.2-1.3); Total Protein 7.7 g/dL (6.3-8.2)
--- NOTE | 2022-02-24 21:14 | XR ---
EXAMINATION TYPE: XR chest 2V DATE OF EXAM: 02/24/2022 COMPARISON: 02/20/2022 HISTORY: Cough TECHNIQUE: FINDINGS: There is no heart failure nor confluent pneumonic infiltrate. Costophrenic angles are clear . Bony thorax is intact. There is a mild thoracic levoscoliosis. IMPRESSION: No active cardiopulmonary disease. No change.
[2022-02-24] MEDS ORDERED: ACETAMINOPHEN TAB 325 MG TAB PO PRN (22:36)
[2022-02-24] MEDS ORDERED: PNEUMONIA PROTOCOL UTILIZED 1 EACH MISC PO PRN (22:36)
[2022-02-24] MEDS ORDERED: ALBUTEROL NEBULIZED 2.5 MG/3 ML INHALATION PRN (22:39)
[2022-02-24] MEDS ORDERED: DOXYCYCLINE 100 MG in SODIUM CHLORIDE 0.9% 100 ML IVPB ONE (22:45)
[2022-02-24] MEDS ORDERED: MAGNESIUM HYDROXIDE 2,400 MG/10 ML CUP PO PRN (23:08)
[2022-02-24] MEDS ORDERED: DOCUSATE 100 MG CAP PO PRN (23:08)
[2022-02-24] MEDS ORDERED: guaiFENesin-DM 100-10MG/5ML 10 ML CUP PO PRN (23:08)
[2022-02-24] MEDS: SODIUM CHLORIDE 0.9% 1,000 ML IV SCH (23:10)
[2022-02-24] MEDS ORDERED: LORazepam 1 MG/0.5 ML VIAL IV PRN ×2 (23:12)
[2022-02-24] MEDS: HEPARIN SODIUM,PORCINE/PF 5,000 UNIT/0.5 ML SYRINGE SQ SCH (23:33)
[2022-02-25] MEDS ORDERED: IPRATROPIUM-ALBUTEROL 3 ML NEB INHALATION SCH
[2022-02-25 06:09] LABS: Basophils % (A) 1 %; Eosinophils # (A) 0.1 k/uL (0-0.7); Eosinophils % (A) 2 %; HCT 41.7 % (39.0-53.0); HGB 14.1 gm/dL (13.0-17.5); Lymphocytes # (A) 1.5 k/uL (1.0-4.8); Lymphocytes % (A) 36 %; MCH 29.2 pg (25.0-35.0); MCHC 33.7 g/dL (31.0-37.0); MCV 86.6 fL (80.0-100.0); Mean Platelet Volume 7.6; Monocytes # (A) 0.4 k/uL (0-1.0); Monocytes % (A) 9 %; Neutrophils # (A) 2.1 k/uL (1.3-7.7); Neutrophils % (A) 50 %; Platelet Count 184 k/uL (150-450); RBC 4.82 m/uL (4.30-5.90); RDW 12.9 % (11.5-15.5); WBC 4.1 k/uL (3.8-10.6)
[2022-02-25 06:18] LABS: Albumin 4.5 g/dL (3.5-5.0); Calcium 9.5 mg/dL (8.4-10.2); Potassium 4.1 mmol/L (3.5-5.1); Total Bilirubin 0.5 mg/dL (0.2-1.3); Total Protein 7.3 g/dL (6.3-8.2)
[2022-02-25] MEDS ORDERED: LEVOTHYROXINE 25 MCG TAB PO SCH (06:30)
[2022-02-25 06:44] LABS: Valproic Acid (Depakene) 45.7 ug/mL
[2022-02-25 07:44] VITALS: TEMP 97.1
[2022-02-25] MEDS ORDERED: NON FORMULARY DRUG (Vitamin B Complex [Vitamin B Complex] 1 EACH Capsule) PO SCH (08:00)
[2022-02-25] MEDS: SODIUM CHLORIDE 0.9% 1,000 ML IV SCH (08:35)
[2022-02-25] MEDS: HEPARIN SODIUM,PORCINE/PF 5,000 UNIT/0.5 ML SYRINGE SQ SCH ×2 (08:42→16:39)
[2022-02-25] MEDS ORDERED: VITAMIN E (DL,TOCOPHERYL ACET) 400 UNIT (180 MG) CAP PO SCH (09:00)
[2022-02-25] MEDS ORDERED: levETIRAcetam 500 MG TAB PO SCH (09:00)
[2022-02-25] MEDS ORDERED: ASCORBIC ACID 500 MG TAB PO SCH (09:00)
[2022-02-25] MEDS ORDERED: GABAPENTIN 300 MG CAP PO SCH (09:00)
[2022-02-25] MEDS ORDERED: bisacodyL 10 MG SUPP RECTAL PRN (09:00)
[2022-02-25] MEDS ORDERED: QUEtiapine 100 MG TAB PO SCH (09:00)
[2022-02-25] MEDS ORDERED: guaiFENesin 600 MG TABLET.ER PO SCH (09:00)
[2022-02-25] MEDS ORDERED: FAMOTIDINE 20 MG TAB PO SCH (09:00)
[2022-02-25] MEDS ORDERED: DIVALPROEX 500 MG TABLET.DR PO SCH (09:00)
[2022-02-25] MEDS ORDERED: OXcarbazepine 300 MG TAB PO SCH (09:00)
[2022-02-25] MEDS ORDERED: SENNOSIDES 8.6 MG TAB PO SCH (09:00)
[2022-02-25] MEDS ORDERED: DOXYCYCLINE 100 MG in SODIUM CHLORIDE 0.9% 100 ML IVPB SCH (12:00)
[2022-02-25 13:07] VITALS: RESP 18
[2022-02-25] MEDS ORDERED: CHOLECALCIFEROL 125 MCG (5000 IU) TABLET PO SCH (16:00)
[2022-02-25 16:38] VITALS: BP 145/106; PULSE 78
[2022-02-25] MEDS ORDERED: NON FORMULARY DRUG (Fluoride (Sodium) [Sodium Fluoride 5000 Plus] 51 GM Cream..G.) MISCELLANE SCH (20:00)
--- NOTE | 2022-02-25 20:15 | P.HPIM ---
History of Present Illness H&P Date: 02/25/22 Chief Complaint: Decreased responsiveness This is a 51-year-old patient, follows with visiting physicians Dr. Smith. Patient is a resident of [facility]. At the baseline able to walk around. Nonverbal. Can feed himself. Sometimes patient will yell and make tractor-like noises. He has underlying autism, severe mental retardation, OCD and seizure disorder. Patient's neurologist is Dr. Samuels. ENRIQUEZ.- his sister Azar Saldaña. Patient not able to provide a history by himself. Block into the ER by the [facility] caregiver. Patient saw his family care doctor and was found to be bit more lethargic usual. Blood pressure is 1 2500. No fever. He says was seen for cough congestion. No fever. Was given Zithromax. He was assessed in the ER to be having possible pneumonia. Started on ceftriaxone. This morning doing better. Did take his pills. Did take some food. Review of systems: See above. And a baseline patient nonverbal. Past medical history to include: Autism, severe mental retardation, OCD, seizure disorder, Social history: Lives at [facility]. guardian is his sister Azar Saldaña. No history of smoking alcohol Family history: Patient cannot tell Physical examination: VITAL SIGNS: 98, 64, 20, 150/99, 94% room air upon presentation GENERAL: laying in bed, comfortable EYES: Pupils equal. Conjunctiva normal. HEENT: External appearance of nose and ears normal, oral cavity grossly normal. NECK: JVD not raised; masses not palpable. HEART: First and second heart sounds are normal; no edema. LUNGS:[ Respiratory rate normal; decreased breath sounds. ABDOMEN: Soft, nontender, liver spleen not palpable, no masses palpable. PSYCH: Nonverbal, unable to assess MUSCULOSKELETAL:No Clubbing/cyanosis;muscles-grossly intact INVESTIGATIONS, reviewed in the clinical context: White count 4.6 hemoglobin 15.3 platelets 178 potassium 4.6 BUN 23 creatinine 1.12 Troponin I less than 0.012 UA: Unremarkable Influenza type A/diabetes/RSV/COVID-19: Not detected Chest x-ray film personally reviewed by me-questionable infiltrate Assessment and plan: -Possible pneumonia. Patient reported some altered mental status at home. No fever. No white count. Was empirically given IV antibiotic in the ER. This morning patient able to take his pills. Did tolerate some diet. Patient could've added aspiration pneumonitis which is chemical. -Epilepsy Continue EGD -Severe mental retardation from underlying autism -Obsessive-compulsive disorder -Legal guardian: Sister: Azar Saldaña Patient received IV ceftriaxone. Other medications/home medication renewed. We'll see how the patient does for next few hours. Past Medical History Past Medical History: Seizure Disorder Additional Past Medical History / Comment(s): autism, pica, epilepsy History of Any Multi-Drug Resistant Organisms: ESBL Date of last positivie culture/infection: 10/17/20 ESBL-Proteus MDRO Source:: ESBL-Urine Past Surgical History: No Surgical Hx Reported Past Anesthesia/Blood Transfusion Reactions: No Reported Reaction Past Psychological History: Unable to Obtain Smoking Status: Unknown if ever smoked Past Alcohol Use History: Unable to Obtain Past Drug Use History: Unable to Obtain Medications and Allergies Home Medications Medication Instructions Recorded Confirmed Type LORazepam [Ativan] 0.5 mg PO BID@1600,2200 09/25/19 02/24/22 History LORazepam [Ativan] 1 mg PO DAILY PRN 09/25/19 02/24/22 History Levothyroxine Sodium [Synthroid] 25 mcg PO DAILY@0800 09/25/19 02/24/22 History Vitamin E (Dl,Tocopheryl Acet) 100 unit PO TID@0800,1600,199909/25/19 02/24/22 History [Vitamin E] Docusate [Colace] 100 mg PO DAILY PRN 10/12/19 02/24/22 History Selsun Blue Sha 1% 1 applic TOPICAL SUWESA@199910/12/19 02/24/22 History bisacodyL 10 mg RECTAL Q72H PRN 10/12/19 02/24/22 History Cholecalciferol (Vitamin D3) 125 mcg PO DAILY@1600 07/12/20 02/24/22 History [Vitamin D3 (5000 Iu)] Magnesium Hydroxide [Milk of 2,400 mg PO DAILY PRN 07/12/20 02/24/22 History Magnesia] Tamsulosin [Flomax] 0.4 mg PO HS@199907/12/20 02/24/22 History Acetaminophen Tab [Tylenol] 1,000 mg PO Q8H PRN 09/02/21 02/24/22 History Divalproex Sodium [Depakote] 1,000 mg PO DAILY@0800 09/02/21 02/24/22 History Divalproex Sodium [Depakote] 750 mg PO HS@199909/02/21 02/24/22 History Famotidine [Pepcid] 20 mg PO BID@0800,199909/02/21 02/24/22 History Fluoride (Sodium) [Sodium Fluoride 1 applic DENTAL HS@199909/02/21 02/24/22 History 5000 Plus] Gabapentin [Neurontin] 300 mg PO BID@0800,199909/02/21 02/24/22 History Guaifenesin/Dextromethorphan 1 cap PO Q6H PRN 09/02/21 02/24/22 History [Coricidin Hbp Chest Khanh-Cough] Lactulose 20 gm PO Q48H PRN 09/02/21 02/24/22 History Loratadine 10 mg PO DAILY@0800 09/02/21 02/24/22 History Menthol-Zinc Oxide Oint 1 applic TOPICAL DAILY@0800 09/02/21 02/24/22 History [Calmoseptine Ointment] QUEtiapine [SEROquel] 100 mg PO BID@0800,199909/02/21 02/24/22 History Sennosides [Senna] 17.2 mg PO BID@0800,199909/02/21 02/24/22 History diazePAM [Diastat] 10 mg RECTAL ONCE PRN 09/02/21 02/24/22 History levETIRAcetam [Keppra] 500 mg PO BID@0800,199909/02/21 02/24/22 History OXcarbazepine [Oxtellar Xr] 600 mg PO BID@0800,1999 #1 tab 09/04/21 02/24/22 Rx Ascorbic Acid [Vitamin C] 500 mg PO BID@0800,199902/24/22 02/24/22 History Vitamin B Complex 1 cap PO DAILY@0800 02/24/22 02/24/22 History Zinc Gluconate [Zinc] 50 mg PO HS@199902/24/22 02/24/22 History guaiFENesin [Mucinex] 1,200 mg PO BID@0800,199902/24/22 02/24/22 History cefUROXime axetiL [Ceftin] 500 mg PO BID #6 tab 02/25/22 Rx Allergies Allergy/AdvReac Type Severity Reaction Status Date / Time brivaracetam [From Briviact] Allergy Unknown Verified 02/24/22 20:37 escitalopram [From Lexapro] Allergy Unknown Verified 02/24/22 20:37 fluoxetine [From Prozac] Allergy Unknown Verified 02/24/22 20:37 haloperidol [From Haldol] Allergy Unknown Verified 02/24/22 20:37 lacosamide [From Vimpat] Allergy Unknown Verified 02/24/22 20:37 methylphenidate Allergy Unknown Verified 02/24/22 20:37 [From Ritalin] Penicillins Allergy Unknown Verified 02/24/22 20:37 phenobarbital Allergy Unknown Verified 02/24/22 20:37 phenytoin [From Dilantin] Allergy Unknown Verified 02/24/22 20:37 sulfamethoxazole Allergy Unknown Verified 02/24/22 20:37 [From Bactrim] trimethoprim [From Bactrim] Allergy Unknown Verified 02/24/22 20:37 oxcarbazepine AdvReac Unknown Verified 02/24/22 20:37 [From Trileptal] Physical Exam Vitals: Vital Signs Temp Pulse Resp BP Pulse Ox 02/25/22 07:37 97.1 F L 76 18 150/110 98 02/25/22 04:00 98 F 70 16 147/88 96 02/24/22 23:03 65 18 131/95 96 02/24/22 14:06 64 20 150/99 94 L Intake and Output 02/24/22 02/25/22 02/25/22 22:59 06:59 14:59 Output Total 750 Balance -750 Output: Urine 750 Other: # Voids 1 Results CBC & Chem 7: 02/25/22 05:54 02/25/22 05:54 Labs: Abnormal Lab Results - Last 24 Hours (Table) 02/24/22 02/24/22 02/25/22 Range/Units 20:12 20:12 05:54 BUN 23 H 22 H (9-20) mg/dL Urine Protein Trace H (Negative)
--- NOTE | 2022-02-25 20:17 | P.DS ---
Providers Date of admission: 02/24/22 23:08 Expected date of discharge: 02/25/22 Attending physician: Randy Lawrence Primary care physician: Russell Smith [facility] Course: Chief Complaint: Decreased responsiveness This is a 51-year-old patient, follows with visiting physicians Dr. Smith. Patient is a resident of [facility]. At the baseline able to walk around. Nonverbal. Can feed himself. Sometimes patient will yell and make tractor-like noises. He has underlying autism, severe mental retardation, OCD and seizure disorder. Patient's neurologist is Dr. Stephens. ZOE.- his sister Azar Saldaña. Patient not able to provide a history by himself. Block into the ER by the [facility] caregiver. Patient saw his family care doctor and was found to be bit more lethargic usual. Blood pressure is 1 2500. No fever. He says was seen for cough congestion. No fever. Was given Zithromax. He was assessed in the ER to be having possible pneumonia. Started on ceftriaxone. This morning doing better. Did take his pills. Did take some food. Patient remained stable during the afternoon. Taking his medications and eating. Dr. whitlock. No fever no white count. Possible aspiration pneumonitis. Discharged back to [facility]. Nurse spoke to the [facility]. Review of systems: See above. And a baseline patient nonverbal. Past medical history to include: Autism, severe mental retardation, OCD, seizure disorder, Social history: Lives at [facility]. guardian is his sister Azar Saldaña. No history of smoking alcohol Family history: Patient cannot tell Physical examination: VITAL SIGNS: 97.1, 78, 18, 1 45 x 1 06, 99% room air GENERAL: laying in bed, comfortable EYES: Pupils equal. Conjunctiva normal. HEENT: External appearance of nose and ears normal, oral cavity grossly normal. NECK: JVD not raised; masses not palpable. HEART: First and second heart sounds are normal; no edema. LUNGS:[ Respiratory rate normal; decreased breath sounds. ABDOMEN: Soft, nontender, liver spleen not palpable, no masses palpable. PSYCH: Nonverbal, unable to assess MUSCULOSKELETAL:No Clubbing/cyanosis;muscles-grossly intact INVESTIGATIONS, reviewed in the clinical context: White count 4.6 hemoglobin 15.3 platelets 178 potassium 4.6 BUN 23 creatinine 1.12 Troponin I less than 0.012 UA: Unremarkable Influenza type A/diabetes/RSV/COVID-19: Not detected Chest x-ray film personally reviewed by me-questionable infiltrate Assessment and plan: -Possible pneumonia. Patient reported some altered mental status at home. No fever. No white count. Was empirically given IV antibiotic in the ER. This morning patient able to take his pills. Did tolerate some diet. Patient could've added aspiration pneumonitis which is chemical. -Epilepsy Continue EGD -Severe mental retardation from underlying autism -Obsessive-compulsive disorder -Legal guardian: Sister: Azar Saldaña Disposition: intermediate Plan - Discharge Summary New Discharge Prescriptions: New cefUROXime axetiL [Ceftin] 500 mg PO BID #6 tab Continue Levothyroxine Sodium [Synthroid] 25 mcg PO DAILY@0800 LORazepam [Ativan] 1 mg PO DAILY PRN PRN Reason: Seizures Vitamin E (Dl,Tocopheryl Acet) [Vitamin E] 100 unit PO TID@0800,1600,1999 LORazepam [Ativan] 0.5 mg PO BID@1600,2200 Selsun Blue Sha 1% 1 applic TOPICAL SUWESA@1999 bisacodyL 10 mg RECTAL Q72H PRN PRN Reason: Constipation Docusate [Colace] 100 mg PO DAILY PRN PRN Reason: Constipation Magnesium Hydroxide [Milk of Magnesia] 2,400 mg PO DAILY PRN PRN Reason: Constipation Tamsulosin [Flomax] 0.4 mg PO HS@2000 Cholecalciferol (Vitamin D3) [Vitamin D3 (5000 Iu)] 125 mcg PO DAILY@1600 Lactulose 20 gm PO Q48H PRN PRN Reason: Constipation Sennosides [Senna] 17.2 mg PO BID@0800,1999 QUEtiapine [SEROquel] 100 mg PO BID@0800,1999 Menthol-Zinc Oxide Oint [Calmoseptine Ointment] 1 applic TOPICAL DAILY@0800 Loratadine 10 mg PO DAILY@0800 levETIRAcetam [Keppra] 500 mg PO BID@0800,1999 Guaifenesin/Dextromethorphan [Coricidin Hbp Chest Khanh-Cough] 1 cap PO Q6H PRN PRN Reason: Cough Divalproex Sodium [Depakote] 1,000 mg PO DAILY@0800 Divalproex Sodium [Depakote] 750 mg PO HS@1999 Gabapentin [Neurontin] 300 mg PO BID@ OXcarbazepine [Oxtellar Xr] 600 mg PO BID@799,1999 #1 tab guaiFENesin [Mucinex] 1,200 mg PO BID@ Vitamin B Complex 1 cap PO DAILY@08 Zinc Gluconate [Zinc] 50 mg PO HS@1999 Ascorbic Acid [Vitamin C] 500 mg PO BID@ Fluoride (Sodium) [Sodium Fluoride 5000 Plus] 1 applic DENTAL HS@1999 Famotidine [Pepcid] 20 mg PO BID@ diazePAM [Diastat] 10 mg RECTAL ONCE PRN PRN Reason: Seizure cluster Acetaminophen Tab [Tylenol] 1,000 mg PO Q8H PRN PRN Reason: Mild Pain Discontinued Azithromycin [Zithromax] See Taper PO DIRECTED Discharge Medication List LORazepam [Ativan] 0.5 mg PO BID@1600,0 09/25/19 [History] LORazepam [Ativan] 1 mg PO DAILY PRN 09/25/19 [History] Levothyroxine Sodium [Synthroid] 25 mcg PO DAILY@0800 09/25/19 [History] Vitamin E (Dl,Tocopheryl Acet) [Vitamin E] 100 unit PO TID@0800,1599,199909/25/19 [History] Docusate [Colace] 100 mg PO DAILY PRN 10/12/19 [History] Selsun Blue Sha 1% 1 applic TOPICAL SUWESA@199910/12/19 [History] bisacodyL 10 mg RECTAL Q72H PRN 10/12/19 [History] Cholecalciferol (Vitamin D3) [Vitamin D3 (5000 Iu)] 125 mcg PO DAILY@1600 07/12/20 [History] Magnesium Hydroxide [Milk of Magnesia] 2,400 mg PO DAILY PRN 07/12/20 [History] Tamsulosin [Flomax] 0.4 mg PO HS@199907/12/20 [History] Acetaminophen Tab [Tylenol] 1,000 mg PO Q8H PRN 09/02/21 [History] Divalproex Sodium [Depakote] 1,000 mg PO DAILY@0800 09/02/21 [History] Divalproex Sodium [Depakote] 750 mg PO HS@199909/02/21 [History] Famotidine [Pepcid] 20 mg PO BID@0800,199909/02/21 [History] Fluoride (Sodium) [Sodium Fluoride 5000 Plus] 1 applic DENTAL HS@199909/02/21 [History] Gabapentin [Neurontin] 300 mg PO BID@0800,199909/02/21 [History] Guaifenesin/Dextromethorphan [Coricidin Hbp Chest Khanh-Cough] 1 cap PO Q6H PRN 09/02/21 [History] Lactulose 20 gm PO Q48H PRN 09/02/21 [History] Loratadine 10 mg PO DAILY@0800 09/02/21 [History] Menthol-Zinc Oxide Oint [Calmoseptine Ointment] 1 applic TOPICAL DAILY@00 [History] QUEtiapine [SEROquel] 100 mg PO BID@0800,199909/02/21 [History] Sennosides [Senna] 17.2 mg PO BID@08,199909/02/21 [History] diazePAM [Diastat] 10 mg RECTAL ONCE PRN 09/02/21 [History] levETIRAcetam [Keppra] 500 mg PO BID@0800,199909/02/21 [History] OXcarbazepine [Oxtellar Xr] 600 mg PO BID@799,1999 #1 tab 09/04/21 [Rx] Ascorbic Acid [Vitamin C] 500 mg PO BID@0800,199902/24/22 [History] Vitamin B Complex 1 cap PO DAILY@0800 02/24/22 [History] Zinc Gluconate [Zinc] 50 mg PO HS@199902/24/22 [History] guaiFENesin [Mucinex] 1,200 mg PO BID@0800,199902/24/22 [History] cefUROXime axetiL [Ceftin] 500 mg PO BID #6 tab 02/25/22 [Rx] Follow up Appointment(s)/Referral(s): Russell Smith MD [Primary Care Provider] - 1-2 days Patient Instructions/Handouts: Bacterial Pneumonia (DC) Discharge Disposition: HOME SELF-CARE
[2022-02-25] MEDS ORDERED: DIVALPROEX 250 MG TABLET.DR PO SCH (21:00)
[2022-02-25] MEDS ORDERED: ZINC SULFATE 220 MG CAP PO SCH (21:00)
[2022-02-25] MEDS ORDERED: TAMSULOSIN 0.4 MG CAP.ER.24H PO SCH (21:00)
[2022-02-26] MEDS ORDERED: MENTHOL-ZINC OXIDE OINT 113 GM TUBE TOPICAL SCH (08:00)
[2022-02-26] MEDS ORDERED: LACTULOSE 20 GM/30 ML CUP PO PRN (09:00)
== END 2022-02-25 16:38 | disposition home or self-care (01) ==
LOC: EC 13:54 → 6NMEDSUR 23:08
PROVIDERS: ADMIT Hospitalist; ATTEND Hospitalist
DX: R41.82 Altered mental status, unspecified (principal); R53.1 Weakness; F84.0 Autistic disorder; G40.909 Epilepsy, unspecified, not intractable, without status epilepticus; F72 Severe intellectual disabilities; F42.9 Obsessive-compulsive disorder, unspecified; R53.83 Other fatigue; F50.89 Other specified eating disorder; Z68.27 Body mass index [BMI] 27.0-27.9, adult; Z16.12 Extended spectrum beta lactamase (ESBL) resistance; Z20.822 Contact with and (suspected) exposure to COVID-19; Z79.890 Hormone replacement therapy; Z79.899 Other long term (current) drug therapy; Z88.0 Allergy status to penicillin; Z88.1 Allergy status to other antibiotic agents; Z88.2 Allergy status to sulfonamides; Z88.8 Allergy status to other drugs, medicaments and biological substances; Z87.01 Personal history of pneumonia (recurrent)
CPT/HCPCS: 96361; 96365; 96366; 96367; 96372 ×2; 99285; 36415; 93005; 80164; 80053 ×2; 80177; 83605; 84484; 85025; 85027; 81003; 87040; 87636; 71046; G0378 ×2; J0696; J1644 ×2